=== PATIENT | female | born 2000 | race African-American/Black ===

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

== ENCOUNTER 2021-04-06 11:08 | Emergency (ER) | payer OTHER ==
--- OUTSIDE RECORDS SUMMARY | 2021-04-06 11:14 | XMS REPORT | Continuity of Care Document ---
:2000 Author Organization [facility] t Address [address] [place] [address] Care Team Providers Name Role Phone Nikko BAILEY Attending Clinician Unavailable Visit, Nurse Attending Clinician Unavailable Priscilla STEVENS C Attending Clinician Doctor Unassigned, Name Attending Clinician Unavailable Lynn VALENTIN, N Attending Clinician Curt Bryant DO Attending Clinician Eboni WELLS Attending Clinician Unavailable Saba VALENTIN, R Attending Clinician Carole WALTER Attending Clinician Unavailable Payers Payer Name Policy Type Policy Number Effective Date Expiration Date S tiara [facility] DUAL [id number] 2020 00:00:00 COMP HMO D SNP [facility] STAR [id number] 2018 00:00:00 Advance Directives Directive Decision Effective Termination Comments Source Date Date Healthcare Agents on N/A [facility] FileNameRelationshipHealthcare [facility] Agent Medical RelationshipCommunicationTercobre [facility] Branch [facility] [phone] (Home) Problems Condition Condition Condition Status Onset Resolution Last Treating Co mments Source Name Details Category Date Date Treatment Clinician Date UTI UTI Disease Active Overview: Mateo thomas (urinary (urinary 8-19 Treated ity o f tract tract 00:00: on [place] infection) infection) 00 11/06/2018 [facility] Branch Chlamydia Chlamydia Disease Active Uni vers trachomati trachomati 2-07 it y of s s 00:00: [place] infection infection 00 [facility] of lower of lower Branch genitourin genitourin sofia sites sofia sites BMI BMI Disease Active 2018- Univers 33.0-33.9, 33.0-33.9, 2-06 it y of adult adult 00:00: [address] No known No known Disease Unive rs active active ity of problems problems [facility] Allergies, Adverse Reactions, Alerts Allergy Allergy Status Severity Reaction(s) Onset Inactive Treating Comm ents Source Name Type Date Date Clinician No Known DA Active U [facility] [address] [place] 00:00: Health 00 are [facility] No Known DA Active U [facility]ie [address] [place] 00:00: Health 00 are [facility] No Known DA Active U [facility] Allergie 8-16 [facility] s 00:[facility]: [facility] 00 [facility] [place] [facility] NO KNOWN Drug Active Univers ALLERGIE Class ity of S [facility] Social History Social Habit Start Date Stop Date Quantity Comments Source Exposure to Not sure [facility] SARS-CoV-2 [facility] (event) Branch Tobacco use and 2020-08-20 2020-08-20 Never used Universit y of exposure 00:00:00 00:00:00 [facility] Alcohol intake 2020-08-20 2020-08-20 Current University of 00:00:00 00:00:00 non-drinker of [facility] alcohol Branch (finding) Sex Assigned At 2000 2000 Universit y of 00:00:00 00:00:00 [facility] Smoking Status Start Date Stop Date Source Never smoker [facility] Medications Ordered Filled Start Stop Current Ordering Indication Dosage Frequency Signature Comments Components Source Medication Medication Date Date Medication? Clinician (SIG) Name Name LOESTRIN FE Yes [id number] 1{tbl} Take 1 Univers (MICROGESTI 6-02 tablet by ity of Nikko FE 04/09) 00:00: mouth [place] 1 mg-20 mcg 00 daily. Medica l (21)/75 mg Branch (7) tablet LOESTRIN FE Yes [id number] 1{tbl} Take 1 Univers (MICROGESTI 3-02 tablet by ity of N FE 04/09) 00:00: mouth [place] 1 mg-20 mcg 00 daily. Medica l (21)/75 mg Branch (7) tablet LOESTRIN FE 0 Yes [id number] 1{tbl} Take 1 Univers (MICROGESTI 3-02 tablet by ity of N FE 04/09) 00:00: mouth [place] 1 mg-20 mcg 00 daily. Medica l (21)/75 mg Branch (7) tablet LOESTRIN FE 0 Yes [id number] 1{tbl} Take 1 Univers (MICROGESTI 3-02 tablet by ity of N FE 04/09) 00:00: mouth [place] 1 mg-20 mcg 00 daily. Medica l (21)/75 mg Branch (7) tablet LOESTRIN FE 0 Yes [id number] 1{tbl} Take 1 Univers (MICROGESTI 3-02 tablet by ity of N FE 04/09) 00:00: mouth [place] 1 mg-20 mcg 00 daily. Medica l (21)/75 mg Branch (7) tablet LOESTRIN FE Yes [id number] 1{tbl} Take 1 Univers (MICROGESTI 3-02 tablet by ity of N FE 04/09) 00:00: mouth [place] 1 mg-20 mcg 00 daily. Medica l (21)/75 mg Branch (7) tablet LOESTRIN FE 2020- No [id number] 1{tbl} Take 1 Univers (MICROGESTI 3-02 06-02 tablet by it y of N FE 04/09) 00:00: 00:00 mouth [place] 1 mg-20 mcg 00 :00 daily. Medica l (21)/75 mg Branch (7) tablet Nitrofurant 2019- No [id number] 100mg Take 1 Univers oin&Nit. 11-06 capsule by ity of [place] 00:00: 04:59 mouth 2 [place] as (MACROBID) 00 :00 (two) Medical 100 mg times Branch capsule daily for 10 days. Nitrofurant 2019- No [id number] 100mg Take 1 Univers oin&Nit. 11-06 capsule by ity of [place] 00:00: 04:59 mouth 2 [place] as (MACROBID) 00 :00 (two) Medical 100 mg times Branch capsule daily for 10 days. Nitrofurant 2018- No [id number] 100mg Take 1 Univers oin&Nit. 11-06 capsule by ity of [place] 00:00: 04:59 mouth 2 [place] as (MACROBID) 00 :00 (two) Medical 100 mg times Branch capsule daily for 10 days. Nitrofurant 2018- No [id number] 100mg Take 1 Univers oin&Nit. 11-06 capsule by ity of [place] 00:00: 04:59 mouth 2 [place] as (MACROBID) 00 :00 (two) Medical 100 mg times Branch capsule daily for 10 days. Nitrofurant 2018- No [id number] 100mg Take 1 Univers oin&Nit. 11-06 capsule by ity of [place] 00:00: 04:59 mouth 2 [place] as (MACROBID) 00 :00 (two) Medical 100 mg times Branch capsule daily for 10 days. No known No Univers medications ity [facility] No known No Univers medications ity [facility] No known No Univers medications ity [facility] No known No [facility] [place] Immunizations Ordered Immunization Filled Immunization Date Status Commen ts Source Name Name Influenza Virus 2017-12-18 Completed Universit y of Vaccine 00:00:00 [facility] Influenza Virus 2017-12-18 Completed Universit y of Vaccine 00:00:00 [facility] Influenza Virus 2017-12-18 Completed Universit y of Vaccine 00:00:00 [facility] Influenza Virus 2017-12-18 Completed Universit y of Vaccine 00:00:00 [facility] Influenza Virus 2017-12-18 Completed Universit y of Vaccine 00:00:00 [facility] Influenza Virus 2017-12-18 Completed Universit y of Vaccine 00:00:00 [facility] Influenza Virus 2017-12-18 Completed Universit y of Vaccine 00:00:00 [facility] Influenza Virus 2017-12-18 Completed Universit y of Vaccine 00:00:00 [facility] Influenza Virus 2017-12-18 Completed Universit y of Vaccine 00:00:00 [facility] Influenza Virus 2017-12-18 Completed Universit y of Vaccine 00:00:00 [facility] Influenza Virus 2017-12-18 Completed Universit y of Vaccine 00:00:00 [facility] Influenza Virus 2017-12-18 Completed Universit y of Vaccine 00:00:00 [facility] Influenza Virus 2017-12-18 Completed Universit y of Vaccine 00:00:00 [facility] Influenza Virus 2017-12-18 Completed Universit y of Vaccine 00:00:00 [facility] Influenza Virus 2017-12-18 Completed Universit y of Vaccine 00:00:00 [facility] Influenza Virus 2017-12-18 Completed Universit y of Vaccine 00:00:00 [facility] HPV 2011-12-27 Completed University of 00:00:00 [facility] Influenza Virus 2011-12-27 Completed Universit y of Vaccine (3+ yrs) 00:00:00 [facility] Meningococcal 2011-12-27 Completed University of Polysaccharide 00:00:00 [place] Medi elder (groups A, C, Y and Branc h W-135) conjugate vaccine (MCV4P) TDAP 2011-12-27 Completed University of 00:00:00 [facility] HPV 2011-12-27 Completed University of 00:00:00 [facility] Influenza Virus 2011-12-27 Completed Universit y of Vaccine (3+ yrs) 00:00:00 [facility] Meningococcal 2011-12-27 Completed University of Polysaccharide 00:00:00 [place] Medi elder (groups A, C, Y and Branc h W-135) conjugate vaccine (MCV4P) TDAP 2011-12-27 Completed University of 00:00:00 [facility] HPV 2011-12-27 Completed University of 00:00:00 [facility] Influenza Virus 2011-12-27 Completed Universit y of Vaccine (3+ yrs) 00:00:00 [facility] Meningococcal 2011-12-27 Completed University of Polysaccharide 00:00:00 [place] Medi elder (groups A, C, Y and Branc h W-135) conjugate vaccine (MCV4P) TDAP 2011-12-27 Completed University of 00:00:00 [facility] HPV 2011-12-27 Completed University of 00:00:00 [facility] Influenza Virus 2011-12-27 Completed Universit y of Vaccine (3+ yrs) 00:00:00 [facility] Meningococcal 2011-12-27 Completed University of Polysaccharide 00:00:00 [place] Medi elder (groups A, C, Y and Branc h W-135) conjugate vaccine (MCV4P) TDAP 2011-12-27 Completed University of 00:00:00 [facility] HPV 2011-12-27 Completed University of 00:00:00 [facility] Influenza Virus 2011-12-27 Completed Universit y of Vaccine (3+ yrs) 00:00:00 [facility] Meningococcal 2011-12-27 Completed University of Polysaccharide 00:00:00 [place] Medi elder (groups A, C, Y and Branc h W-135) conjugate vaccine (MCV4P) TDAP 2011-12-27 Completed University of 00:00:00 [facility] HPV 2011-12-27 Completed University of 00:00:00 [facility] Influenza Virus 2011-12-27 Completed Universit y of Vaccine (3+ yrs) 00:00:00 [facility] Meningococcal 2011-12-27 Completed University of Polysaccharide 00:00:00 [place] Medi elder (groups A, C, Y and Branc h W-135) conjugate vaccine (MCV4P) TDAP 2011-12-27 Completed University of 00:00:00 [facility] HPV 2011-12-27 Completed University of 00:00:00 [facility] Influenza Virus 2011-12-27 Completed Universit y of Vaccine (3+ yrs) 00:00:00 [facility] Meningococcal 2011-12-27 Completed University of Polysaccharide 00:00:00 [place] Medi elder (groups A, C, Y and Branc h W-135) conjugate vaccine (MCV4P) TDAP 2011-12-27 Completed University of 00:00:00 [facility] HPV 2011-12-27 Completed University of 00:00:00 [facility] Influenza Virus 2011-12-27 Completed Universit y of Vaccine (3+ yrs) 00:00:00 [facility] Meningococcal 2011-12-27 Completed University of Polysaccharide 00:00:00 [place] Medi elder (groups A, C, Y and Branc h W-135) conjugate vaccine (MCV4P) TDAP 2011-12-27 Completed University of 00:00:00 [facility] HPV 2011-12-27 Completed University of 00:00:00 [facility] Influenza Virus 2011-12-27 Completed Universit y of Vaccine (3+ yrs) 00:00:00 [place] Me dical Branch Meningococcal 2011-12-27 Completed University of Polysaccharide 00:00:00 [facility] elder (groups A, C, Y and Branc h W-135) conjugate vaccine (MCV4P) TDAP 2011-12-27 Completed University of 00:00:00 [facility] Varicella 2007-02-23 Completed University of (varivax)(chicken 00:00:00 [place] M edical pox) Branch Varicella 2007-02-23 Completed University of (varivax)(chicken 00:00:00 [place] M edical pox) Branch Varicella 2007-02-23 Completed University of (varivax)(chicken 00:00:00 [place] M edical pox) Branch Varicella 2007-02-23 Completed University of (varivax)(chicken 00:00:00 [place] M edical pox) Branch Varicella 2007-02-23 Completed University of (varivax)(chicken 00:00:00 [place] M edical pox) Branch Varicella 2007-02-23 Completed University of (varivax)(chicken 00:00:00 [place] M edical pox) Branch Varicella 2007-02-23 Completed University of (varivax)(chicken 00:00:00 [place] M edical pox) Branch Varicella 2007-02-23 Completed University of (varivax)(chicken 00:00:00 [place] M edical pox) Branch Varicella 2007-02-23 Completed University of (varivax)(chicken 00:00:00 [place] M edical pox) Branch Varicella 2007-02-23 Completed University of (varivax)(chicken 00:00:00 [place] M edical pox) Branch Varicella 2007-02-23 Completed University of (varivax)(chicken 00:00:00 [place] M edical pox) Branch Varicella 2007-02-23 Completed University of (varivax)(chicken 00:00:00 [place] M edical pox) Branch Varicella 2007-02-23 Completed University of (varivax)(chicken 00:00:00 [place] M edical pox) Branch Varicella 2007-02-23 Completed University of (varivax)(chicken 00:00:00 [place] M edical pox) Branch Varicella 2007-02-23 Completed University of (varivax)(chicken 00:00:00 [place] M edical pox) Branch Varicella 2007-02-23 Completed University of (varivax)(chicken 00:00:00 [place] M edical pox) Branch HEPATITIS A 2007-01-09 Completed University of 00:00:00 [facility] HEPATITIS A 2007-01-09 Completed University of 00:00:00 [facility] HEPATITIS A 2007-01-09 Completed University of 00:00:00 [facility] HEPATITIS A 2007-01-09 Completed University of 00:00:00 [facility] HEPATITIS A 2007-01-09 Completed University of 00:00:00 [facility] HEPATITIS A 2007-01-09 Completed University of 00:00:00 [facility] Varicella 2007-01-09 Completed University of (varivax)(chicken 00:00:00 [place] M edical pox) Branch HEPATITIS A 2007-01-09 Completed University of 00:00:00 [facility] Varicella 2007-01-09 Completed University of (varivax)(chicken 00:00:00 [place] M edical pox) Branch HEPATITIS A 2007-01-09 Completed University of 00:00:00 [facility] Varicella 2007-01-09 Completed University of (varivax)(chicken 00:00:00 [place] M edical pox) Branch HEPATITIS A 2007-01-09 Completed University of 00:00:00 [facility] Varicella 2007-01-09 Completed University of (varivax)(chicken 00:00:00 [place] M edical pox) Branch HEPATITIS A 2007-01-09 Completed University of 00:00:00 [facility] Varicella 2007-01-09 Completed University of (varivax)(chicken 00:00:00 [place] M edical pox) Branch HEPATITIS A 2007-01-09 Completed University of 00:00:00 [facility] Varicella 2007-01-09 Completed University of (varivax)(chicken 00:00:00 [place] M edical pox) Branch HEPATITIS A 2007-01-09 Completed University of 00:00:00 [facility] Varicella 2007-01-09 Completed University of (varivax)(chicken 00:00:00 [place] M edical pox) Branch HEPATITIS A 2007-01-09 Completed University of 00:00:00 [facility] Varicella 2007-01-09 Completed University of (varivax)(chicken 00:00:00 [place] M edical pox) Branch HEPATITIS A 2007-01-09 Completed University of 00:00:00 [facility] Branch Varicella 2007-01-09 Completed University of (varivax)(chicken 00:00:00 [place] M edical pox) Branch HEPATITIS A 2007-01-09 Completed University of 00:00:00 [facility] Branch HEPATITIS A 2007-01-09 Completed University of 00:00:00 [facility] Branch HEPATITIS A 2006-03-23 Completed University of 00:00:00 [facility] Branch HEPATITIS A 2006-03-23 Completed University of 00:00:00 [facility] Branch HEPATITIS A 2006-03-23 Completed University of 00:00:00 [facility] Branch HEPATITIS A 2006-03-23 Completed University of 00:00:00 [facility] Branch HEPATITIS A 2006-03-23 Completed University of 00:00:00 [facility] HEPATITIS A 2006-03-23 Completed University of 00:00:00 [facility] HEPATITIS A 2006-03-23 Completed University of 00:00:00 [facility] HEPATITIS A 2006-03-23 Completed University of 00:00:00 [facility] HEPATITIS A 2006-03-23 Completed University of 00:00:00 [facility] Branch DTAP 2005-03-23 Completed University of 00:00:00 [facility] IPV 2005-03-23 Completed University of 00:00:00 [facility] Branch MMR 2005-03-23 Completed University of 00:00:00 [facility] HEPATITIS A 2005-03-23 Completed University of 00:00:00 [facility] Branch DTAP 2005-03-23 Completed University of 00:00:00 [facility] IPV 2005-03-23 Completed University of 00:00:00 [facility] Branch MMR 2005-03-23 Completed University of 00:00:00 [facility] HEPATITIS A 2005-03-23 Completed University of 00:00:00 [facility] Branch DTAP 2005-03-23 Completed University of 00:00:00 [facility] Branch IPV 2005-03-23 Completed University of 00:00:00 [facility] Branch MMR 2005-03-23 Completed University of 00:00:00 [facility] HEPATITIS A 2005-03-23 Completed University of 00:00:00 [facility] Branch DTAP 2005-03-23 Completed University of 00:00:00 [facility] Branch IPV 2005-03-23 Completed University of 00:00:00 [facility] Branch MMR 2005-03-23 Completed University of 00:00:00 [place] [facility] HEPATITIS A 2005-03-23 Completed University of 00:00:00 [place] [facility] DTAP 2005-03-23 Completed University of 00:00:00 [place] [facility] IPV 2005-03-23 Completed University of 00:00:00 [place] [facility] MMR 2005-03-23 Completed University of 00:00:00 [place] [facility] HEPATITIS A 2005-03-23 Completed University of 00:00:00 [place] [facility] DTAP 2005-03-23 Completed University of 00:00:00 [place] [facility] IPV 2005-03-23 Completed University of 00:00:00 [place] [facility] MMR 2005-03-23 Completed University of 00:00:00 [place] [facility] HEPATITIS A 2005-03-23 Completed University of 00:00:00 [place] [facility] DTAP 2005-03-23 Completed University of 00:00:00 [place] [facility] IPV 2005-03-23 Completed University of 00:00:00 [place] [facility] MMR 2005-03-23 Completed University of 00:00:00 [place] [facility] HEPATITIS A 2005-03-23 Completed University of 00:00:00 [place] [facility] DTAP 2005-03-23 Completed University of 00:00:00 [place] [facility] IPV 2005-03-23 Completed University of 00:00:00 [place] [facility] MMR 2005-03-23 Completed University of 00:00:00 [facility] Branch HEPATITIS A 2005-03-23 Completed University of 00:00:00 [place] [facility] DTAP 2005-03-23 Completed University of 00:00:00 [place] [facility] IPV 2005-03-23 Completed University of 00:00:00 [place] [facility] MMR 2005-03-23 Completed University of 00:00:00 [facility] Branch HEPATITIS A 2005-03-23 Completed University of 00:00:00 [place] [facility] DTAP 2002-03-28 Completed University of 00:00:00 [place] [facility] IPV 2002-03-28 Completed University of 00:00:00 [facility] Branch MMR 2002-03-28 Completed University of 00:00:00 [facility] Branch Varicella 2002-03-28 Completed University of (varivax)(chicken 00:00:00 [place] M edical pox) Branch Heamophilus Influenza 2002-03-28 Completed Uni versity of B 00:00:00 [facility] Branch DTAP 2002-03-28 Completed University of 00:00:00 [place] [facility] IPV 2002-03-28 Completed University of 00:00:00 [facility] MMR 2002-03-28 Completed University of 00:00:00 [facility] Branch Varicella 2002-03-28 Completed University of (varivax)(chicken 00:00:00 [place] M edical pox) Branch Heamophilus Influenza 2002-03-28 Completed Uni versity of B 00:00:00 [facility] DTAP 2002-03-28 Completed University of 00:00:00 [facility] IPV 2002-03-28 Completed University of 00:00:00 [facility] MMR 2002-03-28 Completed University of 00:00:00 [facility] Varicella 2002-03-28 Completed University of (varivax)(chicken 00:00:00 [place] M edical pox) Branch Heamophilus Influenza 2002-03-28 Completed Uni versity of B 00:00:00 [facility] DTAP 2002-03-28 Completed University of 00:00:00 [facility] IPV 2002-03-28 Completed University of 00:00:00 [facility] MMR 2002-03-28 Completed University of 00:00:00 [facility] Varicella 2002-03-28 Completed University of (varivax)(chicken 00:00:00 [place] M edical pox) Branch Heamophilus Influenza 2002-03-28 Completed Uni versity of B 00:00:00 [facility] DTAP 2002-03-28 Completed University of 00:00:00 [facility] IPV 2002-03-28 Completed University of 00:00:00 [facility] MMR 2002-03-28 Completed University of 00:00:00 [facility] Varicella 2002-03-28 Completed University of (varivax)(chicken 00:00:00 [place] M edical pox) Branch Heamophilus Influenza 2002-03-28 Completed Uni versity of B 00:00:00 [facility] DTAP 2002-03-28 Completed University of 00:00:00 [facility] IPV 2002-03-28 Completed University of 00:00:00 [facility] MMR 2002-03-28 Completed University of 00:00:00 [facility] Varicella 2002-03-28 Completed University of (varivax)(chicken 00:00:00 [place] M edical pox) Branch Heamophilus Influenza 2002-03-28 Completed Uni versity of B 00:00:00 [facility] DTAP 2002-03-28 Completed University of 00:00:00 [facility] IPV 2002-03-28 Completed University of 00:00:00 [place] [facility] MMR 2002-03-28 Completed University of 00:00:00 [facility] Branch Varicella 2002-03-28 Completed University of (varivax)(chicken 00:00:00 [place] M edical pox) Branch Heamophilus Influenza 2002-03-28 Completed Uni versity of B 00:00:00 [facility] Branch DTAP 2002-03-28 Completed University of 00:00:00 [facility] Branch IPV 2002-03-28 Completed University of 00:00:00 [place] [facility] MMR 2002-03-28 Completed University of 00:00:00 [facility] Branch Varicella 2002-03-28 Completed University of (varivax)(chicken 00:00:00 [place] M edical pox) Branch Heamophilus Influenza 2002-03-28 Completed Uni versity of B 00:00:00 [facility] Branch DTAP 2002-03-28 Completed University of 00:00:00 [facility] Branch IPV 2002-03-28 Completed University of 00:00:00 [facility] Branch MMR 2002-03-28 Completed University of 00:00:00 [facility] Branch Varicella 2002-03-28 Completed University of (varivax)(chicken 00:00:00 [place] [facility] pox) [facility] Heamophilus Influenza 2002-03-28 Completed Uni versity of B 00:00:00 [facility] Hep B, Adol or Pedi 2002-01-19 Completed Unive rsity of Dosage 00:00:00 [facility] Hep B, Adol or Pedi 2002-01-19 Completed Unive rsity of Dosage 00:00:00 [facility] Hep B, Adol or Pedi 2002-01-19 Completed Unive rsity of Dosage 00:00:00 [facility] Hep B, Adol or Pedi 2002-01-19 Completed Unive rsity of Dosage 00:00:00 [facility] Hep B, Adol or Pedi 2002-01-19 Completed Unive rsity of Dosage 00:00:00 [facility] Hep B, Adol or Pedi 2002-01-19 Completed Unive rsity of Dosage 00:00:00 [facility] Hep B, Adol or Pedi 2002-01-19 Completed Unive rsity of Dosage 00:00:00 [facility] Hep B, Adol or Pedi 2002-01-19 Completed Unive rsity of Dosage 00:00:00 [facility] Hep B, Adol or Pedi 2002-01-19 Completed Unive rsity of Dosage 00:00:00 [facility] DTAP 2001-01-19 Completed University of 00:00:00 [facility] Hep B, Adol or Pedi 2001-01-19 Completed Unive rsity of Dosage 00:00:00 [facility] Heamophilus Influenza 2001-01-19 Completed Uni versity of B 00:00:00 [facility] DTAP 2001-01-19 Completed University of 00:00:00 [facility] Hep B, Adol or Pedi 2001-01-19 Completed Unive rsity of Dosage 00:00:00 [facility] Heamophilus Influenza 2001-01-19 Completed Uni versity of B 00:00:00 [facility] DTAP 2001-01-19 Completed University of 00:00:00 [facility] Hep B, Adol or Pedi 2001-01-19 Completed Unive rsity of Dosage 00:00:00 [facility] Heamophilus Influenza 2001-01-19 Completed Uni versity of B 00:00:00 [facility] DTAP 2001-01-19 Completed University of 00:00:00 [facility] Hep B, Adol or Pedi 2001-01-19 Completed Unive rsity of Dosage 00:00:00 [facility] Heamophilus Influenza 2001-01-19 Completed Uni versity of B 00:00:00 [facility] DTAP 2001-01-19 Completed University of 00:00:00 [facility] Hep B, Adol or Pedi 2001-01-19 Completed Unive rsity of Dosage 00:00:00 [facility] Heamophilus Influenza 2001-01-19 Completed Uni versity of B 00:00:00 [facility] DTAP 2001-01-19 Completed University of 00:00:00 [facility] Hep B, Adol or Pedi 2001-01-19 Completed Unive rsity of Dosage 00:00:00 [facility] Heamophilus Influenza 2001-01-19 Completed Uni versity of B 00:00:00 [facility] DTAP 2001-01-19 Completed University of 00:00:00 [facility] Hep B, Adol or Pedi 2001-01-19 Completed Unive rsity of Dosage 00:00:00 [facility] Heamophilus Influenza 2001-01-19 Completed Uni versity of B 00:00:00 [facility] DTAP 2001-01-19 Completed University of 00:00:00 [facility] Hep B, Adol or Pedi 2001-01-19 Completed Unive rsity of Dosage 00:00:00 [facility] Heamophilus Influenza 2001-01-19 Completed Uni versity of B 00:00:00 [facility] DTAP 2001-01-19 Completed University of 00:00:00 [facility] Hep B, Adol or Pedi 2001-01-19 Completed Unive rsity of Dosage 00:00:00 [facility] Heamophilus Influenza 2001-01-19 Completed Uni versity of B 00:00:00 [facility] DTAP 2000 Completed University of 00:00:00 [facility] IPV 2000 Completed University of 00:00:00 [facility] Pneumococcal 7 2000 Completed University of Conjugate, PCV7 00:00:00 [place] [facility] (Prevnar7) [place] Heamophilus Influenza 2000 Completed Uni versity of B 00:00:00 [facility] DTAP 2000 Completed University of 00:00:00 [facility] IPV 2000 Completed University of 00:00:00 [facility] Pneumococcal 7 2000 Completed University of Conjugate, PCV7 00:00:00 [place] [facility] B 00:00:00 [facility] DTAP 2000 Completed University of 00:00:00 [facility] IPV 2000 Completed University of 00:00:00 [facility] Pneumococcal 7 2000 Completed University of Conjugate, PCV7 00:00:00 [place] [facility] (Prevnar7) Branch Heamophilus Influenza 2000 Completed Uni versity of B 00:00:00 [facility] DTAP 2000 Completed University of 00:00:00 [facility] IPV 2000 Completed University of 00:00:00 [facility] Pneumococcal 7 2000 Completed University of Conjugate, PCV7 00:00:00 [place] [facility] (Prevnar7) Branch Heamophilus Influenza 2000 Completed Uni versity of B 00:00:00 [facility] DTAP 2000 Completed University of 00:00:00 [facility] IPV 2000 Completed University of 00:00:00 [facility] Pneumococcal 7 2000 Completed University of Conjugate, PCV7 00:00:00 [place] [facility] (Prevnar7) [facility] Heamophilus Influenza 2000 Completed Uni versity of B 00:00:00 [facility] DTAP 2000 Completed University of 00:00:00 [facility] IPV 2000 Completed University of 00:00:00 [facility] Pneumococcal 7 2000 Completed University of Conjugate, PCV7 00:00:00 [place] [facility] (Prevnar7) [facility] Heamophilus Influenza 2000 Completed Uni versity of B 00:00:00 [facility] DTAP 2000 Completed University of 00:00:00 [facility] IPV 2000 Completed University of 00:00:00 [facility] Pneumococcal 7 2000 Completed University of Conjugate, PCV7 00:00:00 [place] [facility] (Prevnar7) Branch Heamophilus Influenza 2000 Completed Uni versity of B 00:00:00 [facility] DTAP 2000 Completed University of 00:00:00 [facility] IPV 2000 Completed University of 00:00:00 [facility] Pneumococcal 7 2000 Completed University of Conjugate, PCV7 00:00:00 [place] [facility] (Prevnar7) Branch Heamophilus Influenza 2000 Completed Uni versity of B 00:00:00 [facility] DTAP 2000 Completed University of 00:00:00 [facility] IPV 2000 Completed University of 00:00:00 [facility] Pneumococcal 7 2000 Completed University of Conjugate, PCV7 00:00:00 [place] [facility] (Prevnar7) Branch Heamophilus Influenza 2000 Completed Uni versity of B 00:00:00 [facility] DTAP 2000 Completed University of 00:00:00 [facility] Hep B, Adol or Pedi 2000 Completed Unive rsity of Dosage 00:00:00 [facility] IPV 2000 Completed University of 00:00:00 [facility] Heamophilus Influenza 2000 Completed Uni versity of B 00:00:00 [facility] DTAP 2000 Completed University of 00:00:00 [facility] Hep B, Adol or Pedi 2000 Completed Unive rsity of Dosage 00:00:00 [facility] IPV 2000 Completed University of 00:00:00 [facility] Heamophilus Influenza 2000 Completed Uni versity of B 00:00:00 [facility] DTAP 2000 Completed University of 00:00:00 [facility] Hep B, Adol or Pedi 2000 Completed Unive rsity of Dosage 00:00:00 [facility] IPV 2000 Completed University of 00:00:00 [facility] Heamophilus Influenza 2000 Completed Uni versity of B 00:00:00 [facility] DTAP 2000 Completed University of 00:00:00 [facility] Hep B, Adol or Pedi 2000 Completed Unive rsity of Dosage 00:00:00 [facility] IPV 2000 Completed University of 00:00:00 [facility] Heamophilus Influenza 2000 Completed Uni versity of B 00:00:00 [facility] DTAP 2000 Completed University of 00:00:00 [facility] Hep B, Adol or Pedi 2000 Completed Unive rsity of Dosage 00:00:00 [facility] IPV 2000 Completed University of 00:00:00 [facility] Heamophilus Influenza 2000 Completed Uni versity of B 00:00:00 [facility] DTAP 2000 Completed University of 00:00:00 [facility] Hep B, Adol or Pedi 2000 Completed Unive rsity of Dosage 00:00:00 [facility] IPV 2000 Completed University of 00:00:00 [facility] Heamophilus Influenza 2000 Completed Uni versity of B 00:00:00 [facility] DTAP 2000 Completed University of 00:00:00 [facility] Hep B, Adol or Pedi 2000 Completed Unive rsity of Dosage 00:00:00 [facility] IPV 2000 Completed University of 00:00:00 [facility] Heamophilus Influenza 2000 Completed Uni versity of B 00:00:00 [facility] DTAP 2000 Completed University of 00:00:00 [facility] Hep B, Adol or Pedi 2000 Completed Unive rsity of Dosage 00:00:00 [facility] IPV 2000 Completed University of 00:00:00 [facility] Heamophilus Influenza 2000 Completed Uni versity of B 00:00:00 [facility] DTAP 2000 Completed University of 00:00:00 [facility] Hep B, Adol or Pedi 2000 Completed Unive rsity of Dosage 00:00:00 [facility] IPV 2000 Completed University of 00:00:00 [facility] Heamophilus Influenza 2000 Completed Uni versity of B 00:00:00 [facility] Hep B, Adol or Pedi 2000 Completed Unive rsity of Dosage 00:00:00 [facility] Hep B, Adol or Pedi 2000 Completed Unive rsity of Dosage 00:00:00 [facility] Hep B, Adol or Pedi 2000 Completed Unive rsity of Dosage 00:00:00 [facility] Hep B, Adol or Pedi 2000 Completed Unive rsity of Dosage 00:00:00 [facility] Hep B, Adol or Pedi 2000 Completed Unive rsity of Dosage 00:00:00 [facility] Hep B, Adol or Pedi 2000 Completed Unive rsity of Dosage 00:00:00 [facility] Hep B, Adol or Pedi 2000 Completed Unive rsity of Dosage 00:00:00 [facility] Hep B, Adol or Pedi 2000 Completed Unive rsity of Dosage 00:00:00 [facility] Hep B, Adol or Pedi 2000 Completed Unive rsity of Dosage 00:00:00 [facility] Vital Signs Vital Name Observation Time Observation Value Comments Source Systolic blood 2020-08-20 14:56:00 125 mm[Hg] Univer sity of pressure [facility] Diastolic blood 2020-08-20 14:56:00 76 mm[Hg] Unive rsity of pressure [facility] Heart rate 2020-08-20 14:56:00 78 /min Universi ty of [facility] Body temperature 2020-08-20 14:56:00 36.72 Yuki Univ ersity of [facility] Body weight 2020-08-20 14:56:00 124.376 kg Universi ty of [facility] Systolic blood 2020-05-20 16:05:00 129 mm[Hg] Univer sity of pressure [facility] Diastolic blood 2020-05-20 16:05:00 77 mm[Hg] Unive rsity of pressure [facility] Heart rate 2020-05-20 16:05:00 84 /min Universi ty of [facility] Body temperature 2020-05-20 16:05:00 36.72 Yuki Univ ers[facility] of [facility] Respiratory rate 2020-05-20 16:05:00 16 /min Univ ersity of [facility] Body height 2020-05-20 16:05:00 172.7 cm [facility]i [facility] Body weight 2020-05-20 16:05:00 107.559 kg [facility] BMI 2020-05-20 16:05:00 36.05 kg/m2 [facility] Systolic blood 2020-05-12 15:37:00 132 mm[Hg] Univer sity of pressure [facility] Diastolic blood 2020-05-12 15:37:00 88 mm[Hg] Unive rsity of pressure [facility] Heart rate 2020-05-12 15:37:00 84 /min Universi ty of [facility] Body temperature 2020-05-12 15:37:00 36.67 Yuki Univ ers[facility] of [facility] Respiratory rate 2020-05-12 15:37:00 16 /min Univ ersity of [facility] Body height 2020-05-12 15:37:00 172.7 cm [facility]i ty of [facility] Body weight 2020-05-12 15:37:00 105.235 kg [facility] BMI 2020-05-12 15:37:00 35.28 kg/m2 [facility] [place] [facility] Systolic blood 2018-11-08 14:03:00 112 mm[Hg] Univer sity of pressure [facility] Diastolic blood 2018-11-08 14:03:00 72 mm[Hg] Unive rsity of pressure [facility] Heart rate 2018-11-08 14:03:00 87 /min [facility] Body temperature 2018-11-08 14:03:00 36.72 Yuki Univ [facility] Respiratory rate 2018-11-08 14:03:00 16 /min Univ ers[facility] of [facility] Body height 2018-11-08 14:03:00 172.7 cm [facility] Body weight 2018-11-08 14:03:00 103.108 kg [facility] BMI 2018-11-08 14:03:00 34.56 kg/m2 [facility] Systolic blood 2018-11-08 14:03:00 112 mm[Hg] Univer sity of pressure [facility] Diastolic blood 2018-11-08 14:03:00 72 mm[Hg] Unive rsity of pressure [facility] Heart rate 2018-11-08 14:03:00 87 /min [facility] Body temperature 2018-11-08 14:03:00 36.72 Yuki Univ [facility] Respiratory rate 2018-11-08 14:03:00 16 /min Univ ers[facility] Body height 2018-11-08 14:03:00 172.7 cm [facility] Body weight 2018-11-08 14:03:00 103.108 kg [facility] BMI 2018-11-08 14:03:00 34.56 kg/m2 [facility] Heart rate 2018-11-02 14:09:00 73 /min [facility] Body temperature 2018-11-02 14:09:00 36.72 Yuki Univ [facility] Respiratory rate 2018-11-02 14:09:00 16 /min Univ ersity of [facility] Body height 2018-11-02 14:09:00 172.7 cm [facility] Body weight 2018-11-02 14:09:00 102.513 kg [facility] BMI 2018-11-02 14:09:00 34.36 kg/m2 [facility] ty [facility] Systolic blood 2018-11-02 14:09:00 135 mm[facility]Hg[facility] 2018-11-02 14:09:00 83 mm[Hg] Castillo [facility] Procedures Procedure Date / Time Performing Clinician Source Performed NOTICE OF BILLING 2020-08-20 14:28:35 Doctor Jazzy [facility] PRACTICES FOR MEDICARE [facility] POCT TEST 2020-05-20 16:17:00 Milagros Bailey [facility] POCT TEST 2020-05-12 15:49:00 [facility] CONSENT/REFUSAL FOR 2020-05-12 14:40:28 Doctor Castillo [facility] DIAGNOSIS AND TREATMENT [place] [facility] POCT TEST 2018-11-08 14:05:00 Yi Wells [facility] POCT TEST 2018-11-02 14:30:00 Veronica Walter [facility] POCT URINALYSIS W/O 2018-11-02 14:29:00 Veronica Walter [facility] SPECIFIC GRAVITY [facility] POCT URINALYSIS 2018-11-02 14:12:00 Veronica [facility] NO SHOW OR MISSED 2018-11-02 13:56:35 Doctor Jazzy [facility] APPOINTMENT POLICY [facility] h ACKNOWLEDGEMENT Encounters Start End Encounter Admission Attending Care Care Encounter Source Date/Time Date/Time Type Type Clinicians Facility Department ID 2020-04-13 Inpatient HCANW LUIZ [id number] [facility] 02:17:00 [id number] [facility] 2021-05-21 2021-05-21 Outpatient Carole BAILEY [facility] [id number] Univers 15:15:00 15:15:00 MILAGROS [id number] [facility] 2021-05-21 2021-05-21 Outpatient Carole BAILEY [facility] [id number] Univers 15:15:00 15:15:00 MILAGROS ity of [facility] 2020-08-20 2020-08-20 Nurse Visit, Ilia-Rmchp Nurse [facility] 1.2 .840.114 [id number] Univers 09:25:21 09:56:10 Visit Yi Wells HYBRID TECHNOLOGIST [id number]. 10 ity of [facility] [id number] Ulises as MATERNAL [id number] [facility] & CHILD [address] [place] [address] 2020-08-20 2020-08-20 Outpatient R [facility] [id number] Univers 09:30:00 09:30:00 [id number] ity [facility] 2020-08-20 2020-08-20 Outpatient R [facility] [id number] Univers 09:30:00 09:30:00 ity [facility] 2020-08-20 2020-08-20 Orders Doctor KARISHMA [id number] [id number] Univers 00:00:00 00:00:00 Only Unassigned, ALEJANDRO [id number] ity of [place] [facility] [id number] Ulises as [id number] [address] 2020-06-17 2020-06-17 Telephone Lynn [facility] [id number] Univers 00:00:00 00:00:00 Milagros El HYBRID TECHNOLOGIST [id number] it y of REGIONAL [id number] [place] as MATERNAL [id number] [facility] & CHILD [address] [place] [address] 2020-06-10 2020-06-10 Patient Manny [facility] [id number] Univers 00:00:00 00:00:00 Outreach Jimmy PRIMARY [id number] i ty of [facility] 4.2.7.2.686 [place] VIERA [id number] Nm dical [address] [place] [address] 2020-05-20 2020-05-20 Outpatient R PRISCILLA [facility] [id number] Univers 15:15:00 15:15:00 YI [id number] ity o f [facility] 2020-05-20 2020-05-20 Outpatient R PRISCILLA [facility] [id number] Univers 15:15:00 15:15:00 YI fernando [facility] 2020-05-20 2020-05-20 [facility] [id number] Univers 09:44:02 10:44:43 Visit Milagros El HYBRID TECHNOLOGIST [id number] it y of REGIONAL 4.2.7.2.686 [place] as MATERNAL [id number] [facility] ical & CHILD [address] [place] [address] 2020-05-20 2020-05-20 [facility] [id number] Univers 09:45:00 09:45:00 MILAGROS henry [facility] 2020-05-12 2020-05-12 [facility] 1.2 .840.114 [id number] Univers 09:15:42 09:40:19 Visit Yi Wells HYBRID TECHNOLOGIST 350.1.13. 10 ity of REGIONAL 4.2.7.2.686 [place] as MATERNAL [id number] [facility] & CHILD [address] [place] [address] 2020-05-12 2020-05-12 Fe Walter MADEEPTHI 1.2.840.114 [id number] Univers 09:00:00 09:30:00 Veronica Lam HYBRID TECHNOLOGIST 350.1.13.10 ity of Visit REGIONAL 4.2.7.2.686 [place] as MATERNAL [id number] [facility] & CHILD [address] [place] [address] 2020-05-12 2020-05-12 Outpatient Carole WALTER [facility] [id number] Univers 09:00:00 09:00:00 ROSYOCASTANDA [id number] ity o f [facility] 2020-05-12 2020-05-12 Outpatient Carole WALTER [facility] [id number] Univers 09:00:00 09:00:00 ROSHUNDA ity o f [facility] 2020-05-12 2020-05-12 Orders Doctor SCHWARZ 1.2.840.114 [id number] Univers 00:00:00 00:00:00 Only Unassigned, ALEJANDRO 350.1.13.10 ity of [place] [facility] 4.2.7.2.686 [place] as [id number] [address] 2020-05-07 2020-05-07 Outpatient R [facility] [id number] Univers 13:30:00 13:30:00 [id number] ity [facility] 2020-05-07 2020-05-07 Outpatient R [facility] [id number] Univers 13:30:00 13:30:00 ity of [facility] 2020-05-05 2020-05-05 Outpatient R SABA, [facility] [id number] Univers 14:00:00 14:00:00 VERONICA ity o f [facility] 2020-05-05 2020-05-05 Outpatient R [facility] [id number] Univers 13:30:00 13:30:00 [id number] ity [facility] 2019-04-06 2019-04-06 Emergency E [facility] [id number] [facility] 00:22:00 00:22:00 2018-11-16 2018-11-16 Telephone [facility] 1.2.840.114 [id number] Univers 00:00:00 00:00:00 Yi C HYBRID TECHNOLOGIST 350.1.13.10 ity of [place] [id number] Ulises as MATERNAL [id number] Med ical & CHILD [address] [place] [address] 2018-11-16 2018-11-16 Telephone [facility] 1.2.840.114 [id number] 00:00:00 00:00:00 Yi C HYBRID TECHNOLOGIST 350.1.13.10 REGIONAL 4.2.7.2.686 MATERNAL [id number] & CHILD [address] [place] [address] 2018-11-08 2018-11-08 [facility] [id number] Univers 08:41:58 09:34:25 Visit Yi C HYBRID TECHNOLOGIST 350.1.13.10 ity of [facility] 4.2.7.2.686 [place] as MATERNAL [id number] Med ical & CHILD [address] [place] [address] 2018-11-08 2018-11-08 Office Priscilla [facility] [id number] 08:41:58 09:34:25 Visit Yi Lyn HYBRID TECHNOLOGIST 350.1.13.10 [facility] 4.2.7.2.686 MATERNAL [id number] & CHILD [address] [facility] 2018-11-06 2018-11-06 Telephone Saba [facility] [id number] Univers 00:00:00 00:00:00 Veronica Lam HYBRID TECHNOLOGIST [id number] ity of [facility] 4.2.7.2.686 Ulises as MATERNAL [id number] Med ical & CHILD [address] [place] [address] 2018-11-02 2018-11-02 [facility] 1.2 .840.114 [id number] [facility] 08:58:48 09:18:43 Visit Veronica Walter HYBRID TECHNOLOGIST [id number] ity of [facility] 4.2.7.2.686 [place] as MATERNAL [id number] Med ical & CHILD [address] [place] [address] 2018-11-02 2018-11-02 Orders Doctor KARISHMA 1.2.840.[id number] [place] [address] 00:00:00 00:00:00 Only Unassigned, ALEJANDRO 350.1.13.10 ity of [place] [facility] 4.2.7.2.686 [place] as [id number] [address] 2018-10-07 2018-10-07 Emergency E [facility] [place] [id number] BL 12:29:00 12:29:00 2018-09-09 2018-09-09 Emergency E MHBL MHBL 7503 MHBL 19:24:00 19:24:00 Results Test Description Test Time Test Comments Results Result Comments Source POCT TEST 2020-05-20 16:17:00 Test Item Value Reference Range Interpretation Comme nts POCT PREG (test code = 1605) Negative On board controls acceptable with C Line (test code = 3574) Yes POCT PREG LOT # (test code = 3575) POCT [facility]REG TEST [facility]test code [facility] 3576[id number] 16:17:00 Test Item Value Reference Range Interpretation Comments POCT PREG (test code = 1605) Negative On board controls acceptable with C Yes Line (test code = 3574) POCT PREG LOT # (test code = 3575) POCT PREG TEST DATE (test code = 3576) [facility] [id number] 15:49:00 Test Item Value Reference Range Interpretation Comments POCT PREG (test code = 1605) Negative On board controls acceptable with C Yes Line (test code = 3574) POCT PREG LOT # (test code = 3575) POCT PREG TEST DATE (test code = 3576) [facility]- XR CHEST 1 [id number] 03:20:00 [facility] : 2000 Sex: FPatient Name: ROSALES TUCKER Unit No: [id number] EXAMS: CPT: [id number] XR CHEST 1 V 12543 CHEST 1 VIEW CLINICAL HISTORY: Palpitations COMPARISON: None. A single frontal view of the chest is submitted. FINDINGS: The cardiac silhouette is normal in size. Vascularity appears normal. The lungs are clear. No pleural effusion or pneumothorax is seen. No osseous abnormalities are seen. IMPRESSION: Negative chest radiograph. 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 [address] : 2000 Age: 20 Sex: F [place]ish [place] [id number] Loc: N.ERS Exam Date: 04/13/2020 Status: REG ER PH: FAX: PAGE 1 Signed ReportCOMPREHENSIVE METABOLIC [id number] 03:19:00 Test Item Value Reference Range Interpretation Comments SODIUM (test code = 136 mmol/L 135-145 N NA) POTASSIUM (test 3.8 mmol/L 3.6-5.0 N code = K) CHLORIDE (test code 103 mmol/L 101-111 N = CL) CARBON DIOXIDE 27 mmol/L 21-31 N (test code = CO2) GLUCOSE (test code 117 mg/dl 70-100 H = GLU) BLOOD UREA NITROGEN 14 mg/dl 6-20 N (test code = BUN) GLOMERULAR >=60 max >60 The estimated FILTRATION RATE estimate glomerular (test code = GFR) filtration rate is computed usingpatient ra ce, age (>18), sex, and serum creatinin e. If anyof the ne eded data elements a re missing the Laboratory lashell ot compute an estimation of t he glomerular filtration rate . CREATININE (test 0.74 mg/dL 0.44-1.03 N code = CREAT) TOTAL PROTEIN (test 7.5 g/dL 6.7-8.2 N code = PROT) ALBUMIN (test code 4.2 g/dL 3.2-5.5 N = ALB) CALCIUM (test code 9.1 mg/dL 8.5-10.5 N = CA) BILIRUBIN TOTAL 1.10 mg/dL 0.2-1.3 N (test code = BILT) SGOT/AST (test code 16 U/L 10-42 N = AST) SGPT/ALT (test code 10 U/L 10-60 N = ALT) ALKALINE 61 U/L 42-121 N PHOSPHATASE (test code = ALKP) [id number] 03:19:00 Test Item Value Reference Range Interpretation Comments TROPONIN-I (test code = TROPI) <0.020 ng/mL 0.000-0.034 N CBC W/AUTO [id number] 02:59:00 Test Item Value Reference Range Interpretation Comments WHITE BLOOD CELL (test code = 8.1 x10 3/uL 3.2-11.5 N WBC) RED BLOOD CELL (test code = 3.98 x10(6)/m 3.70-5.10 N RBC) HEMOGLOBIN (test code = HGB) 11.0 g/dL 12.0-15.0 L HEMATOCRIT (test code = HCT) 35.7 % 35.7-44.8 N MEAN CELL VOLUME (test code = 90 fL 80-100 N MCV) MEAN CELL HGB (test code = MCH) 27.6 pg 26.2-33.8 N MEAN CELL HGB CONCENTRATION 30.8 g/dL 30.0-34.0 N (test code = MCHC) RED CELL DISTRIBUTION WIDTH 13.5 % 11.3-14.5 N (test code = RDW) PLATELET COUNT (test code = 369 x10 3/uL 130-408 N PLT) MEAN PLATELET VOLUME (test code 10.0 fL 8.6-12.6 N = MPV) NEUTROPHIL % (test code = NT%) 52.7 % 40.0-70.0 N IMMATURE GRANULOCYTE % (test 0.2 % 0.0-2.0 N code = IG%) LYMPHOCYTE % (test code = LY%) 39.8 % 20-40 N MONOCYTE % (test code = MO%) 6.5 % 1-10 N EOSINOPHIL % (test code = EO%) 0.6 % 0.0-5.0 N BASOPHIL % (test code = BA%) 0.2 % 0.0-1.0 N NUCLEATED RBC % (test code = 0.0 % 0.0-0.9 N NRBC%) NEUTROPHIL # (test code = NT#) 4.3 x10 3/uL 1.6-7.2 N LYMPHOCYTE # (test code = LY#) 3.24 x10 3/uL 1.1-2.7 H MONOCYTE # (test code = MO#) 0.5 x10 3/uL 0.3-0.8 N EOSINOPHIL # (test code = EO#) 0.1 x10 3/uL 0.0-0.5 N BASOPHIL # (test code = BA#) 0.0 x10 3/uL 0.0-0.1 N POCT [id number] 14:05:00 Test Item Value Reference Range Interpretation Comments POCT PREG (test code = 1605) Negative On board controls acceptable with C Yes Line (test code = 3574) POCT PREG LOT # (test code = 3575) POCT PREG TEST DATE (test code = 3576) [id number] 14:05:00 Test Item Value Reference Range Interpretation Comments POCT PREG (test code = 1605) Negative On board controls acceptable with C Yes Line (test code = 3574) POCT PREG LOT # (test code = 3575) POCT PREG TEST DATE (test code = 3576) [facility] [id number] 23:29:00 Test Item Value Reference Range Interpretation Comments HCG SERUM (test <1 INTERPRETATI ON:VALUES BETWEEN code = HCG) 15-20 milliInte rnational units/mL NEED T O BERETESTED WITHIN 48 HOURS . All units for these ranges ar e in milliInternatio nalunits/mL0-1 WK AFTER CONCEP TION 0-50 1-2 W KS AFTER CONCEPTION 40-3002-3 WKS A FTER CONCEPTION 100-1 ,0003-4 WKS AFTER CONCEPTIO N 500-6,0001-2 MO NTHS AFTER CONCEPTION 5,000-200,0002- 3 MONTHS AFTER CONCEPTION 10,000-100,0002 ND TRIMESTER 3,000-50,0003RD TRIMESTER 1 ,000-50,000 SPECIMENS WITH AN HCG LEVEL FROM 0-6 milliInternatio nalunits/mL SHOULD BE CONSI DERED NEGATIVE UA RFLX MICR CULT IF [id number] 22:28:00 Test Item Value Reference Range Interpretation Comments UA COLOR (test code = COLU) YELLOW YELLOW UA APPEARANCE (test code = HAZY CLEAR APPU) UA GLUCOSE DIPSTICK (test code NEGATIVE NEGATIVE = DGLUU) UA BILIRUBIN DIPSTICK (test NEGATIVE NEGATIVE code = BILU) UA KETONE DIPSTICK (test code TRACE NEGATIVE = KETU) UA SPECIFIC GRAVITY (test code >= 1.030 1.001-1.035 N = SGU) UA BLOOD DIPSTICK (test code = 1+ NEGATIVE A SHOLA) UA PH DIPSTICK (test code = 6.0 5-9 CARL) UA PROTEIN DIPSTICK (test code 2+ NEGATIVE = PROU) UA UROBILINIOGEN DIPSTICK 0.2 EU/dL <=1.0 (test code = URO) UA NITRITE DIPSTICK (test code POSITIVE NEGATIVE A = WHITNEY) UA LEUKOCYTE ESTERASE DIPSTICK 1+ NEGATIVE A (test code = LEUU) UA WBC (test code = WBCU) 5-10 #/hpf NONE SEEN A UA RBC (test code = RBCU) 5-10 #/hpf NONE SEEN A UA EPITHELIAL CELLS (test code MODERATE #/hpf NONE SEEN A = EPIU) UA BACTERIA (test code = BACU) MODERATE #/hpf NONE SEEN A Indication for culture: Dysuria/FrequencyPOCT URINALYSIS W/O SPECIFIC [id number] 14:30:00 Test Item Value Reference Range Interpretation Comments POCT PH U (test code = 3254) error 5-8 POCT U LEUK EST (test code = 3263) . Negative - Negative POCT U NIT (test code = 3262) . Negative - Negative POCT U PROT (test code = 3259) . Negative - Negative POCT U GLU (test code = 3256) . Negative - Negative POCT U KETONE (test code = 3258) . Negative - Negative POCT U BLD (test code = 3257) . Negative - Negative [facility] [id number] 14:30:00 Test Item Value Reference Range Interpretation Comments POCT PREG (test code = 1605) Negative On board controls acceptable with C Yes Line (test code = 3574) POCT PREG LOT # (test code = 3575) POCT PREG TEST DATE (test code = 3576) [facility] URINALYSIS W SPECIFIC [id number] 14:13:00 Test Item Value Reference Range Interpretation Comments POCT U SP GRAV (test code = 3255) . 1.005-1.025 POCT PH U (test code = 3254) 5 mg/dl 5-8 POCT U LEUK EST (test code = 2+ Negative - Negative 3263) POCT U NIT (test code = 3262) POS Negative - Negative POCT U PROT (test code = 3259) Trace Negative - Negative POCT U GLU (test code = 3256) Neg Negative - Negative POCT U KETONE (test code = 3258) None Negative - Negative POCT U UROBILI (test code = 3260) . 0.2-1 POCT U BILI (test code = 3261) . Negative - Negative POCT U BLD (test code = 3417) Blood Negative - Negative POCT U COLOR (test code = 3266) POCT U APPEAR (test code = 5440) [facility]
[2021-04-06] MEDS ORDERED: HYDROCODONE/CHLORPHEN 5 ML/OSYR ONE (13:39)
--- NOTE | 2021-04-06 13:56 | RAD REPORT ---
EXAM DESCRIPTION: RAD - Chest Pa And Lat (2 Views) - 04/06/2021 1:47 pm CLINICAL HISTORY: Cough;SOB COMPARISON: October 2020 TECHNIQUE: Frontal and lateral views of the chest were obtained. FINDINGS: The lungs are clear. Heart size is normal and central vasculature is within normal limit s. No pleural effusion or pneumothorax seen. No acute bony finding noted. No aortic abnormality. No significant change from comparison study. IMPRESSION: No acute cardiopulmonary process.
[2021-04-06 16:13] LABS: SARS-COV-2 RT PCR NEGATIVE (NEGATIVE)
--- NOTE | 2021-04-06 16:22 | ER ---
Nurse's Notes [facility] Name: Niurka Alatorre Age: 21 yrs Sex: Female : 2000 Arrival Date: 04/06/2021 Time: 11:14 Bed Waiting Private MD: Diagnosis: Acute upper respiratory infection, unspecified Presentation: 04/06 13:30 Chief complaint: Patient states: h/a, cough, body aches x 1 month. Coronavirus screen: vg1 Vaccine status: Patient reports being unvaccinated. Client denies travel out of the [place] in the last 14 days. Ebola Screen: Patient negative for fever greater than or equal to 101.5 degrees Fahrenheit, and additional compatible Ebola Virus Disease symptoms. Initial Sepsis Screen: Does the patient meet any 2 criteria? No. Patient's initial sepsis screen is negative. Does the patient have a suspected source of infection? No. Patient's initial sepsis screen is negative. Risk Assessment: Do you want to hurt yourself or someone else? Patient reports no desire to harm self or others. Onset of symptoms was March 06, 2022. 13:30 Method Of Arrival: Ambulatory vg1 13:30 Acuity: ONEAL 4 vg1 Triage Assessment: 13:31 General: Appears in no apparent distress. comfortable, Behavior is calm, cooperative. vg1 Pain: Denies pain. 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 - Social history:: Smoking status: Patient denies any tobacco usage or history of. Screenin:49 Abuse screen: Denies threats or abuse. Nutritional screening: No deficits noted. vg1 Tuberculosis screening: No symptoms or risk factors identified. Fall Risk None identified. Assessment: 16:49 Reassessment: Patient appears in no apparent distress at this time. Patient and/or vg1 family updated on plan of care and expected duration. Pain level reassessed. Patient is alert, oriented x 3, equal unlabored respirations, skin warm/dry/pink. Patient denies pain at this time. Patient states feeling better. Vital Signs: 13:30 BP 138 / 79; Pulse 77; Resp 18; Temp 97.9; Pulse Ox 100% ; Weight 131.54 kg; Height 5 vg1 ft. 9 in. (175.26 cm); Pain 0/10; 13:30 Body Mass Index 42.83 (131.54 kg, 175.26 cm) vg1 ED Course: 11:14 Patient arrived in ED. am2 13:24 Senthil Bella NP is PHCP. pm1 13:24 Rob Quinn MD is Attending Physician. pm1 13:31 Triage completed. vg1 13:31 Arm band placed on. vg1 13:47 Chest Pa And Lat (2 Views) XRAY In Process Unspecified. EDMS 16:49 Patient has correct armband on for positive identification. vg1 16:49 No provider procedures requiring assistance completed. Patient did not have IV access vg1 during this emergency room visit. Administered Medications: 13:40 Drug: Tussionex Pennkinetic ER (chlorpheniramine-hydrocodone) Suspension 5 ml Route: PO;vg1 16:49 Follow up: Response: No adverse reaction; Marked relief of symptoms vg1 Outcome: 16:22 Discharge ordered by MD. pm1 16:49 Discharged to home ambulatory, with family. vg1 16:49 Condition: good 16:49 Discharge instructions given to patient, Instructed on discharge instructions, follow up and referral plans. medication usage, Demonstrated understanding of instructions, follow-up care, medications, Prescriptions given X 1. 16:50 Patient left the ED. vg1 Signatures: Dispatcher [employer] [facility] Senthil Bella NP RAILROAD COOK pm1 Jillian Vásquez am2 Huong Dela Cruz, RN RN vg1 Corrections: (The following items were deleted from the chart) 13: 13:31 PMHx: DIZZYNESS AND HEADACHES; vg1 vg1
--- NOTE | 2021-04-06 16:22 | EDPHYS ---
Physician Documentation [facility] Name: Niurka Alatorre Age: 21 yrs Sex: Female : 2000 Arrival Date: 04/06/2021 Time: 11:14 Bed Waiting Private MD: ED Physician Rob Quinn HPI: 04/06 14:09 This 21 yrs old Black Female presents to ER via Ambulatory with complaints of r/o covid.pm1 14:09 The patient or guardian reports cough, with no sputum. Onset: The symptoms/episode pm1 began/occurred 1 month(s) ago. Severity of symptoms: in the emergency department the symptoms have improved. Modifying factors: The symptoms are alleviated by cough syrup of her roommate that was diagnosed with covid recently. Associated signs and symptoms: Pertinent positives: headache and body aches have resolved, Pertinent negatives: ear ache, fever, sore throat. The patient has not experienced similar symptoms in the past. The patient has not recently seen a physician. 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 - Social history:: Smoking status: Patient denies any tobacco usage or history of. ROS: 14:09 Eyes: Negative for injury, pain, redness, and discharge, ENT: Negative for injury, pm1 pain, and discharge, Cardiovascular: Negative for chest pain, palpitations, and edema. 14:09 Abdomen/GI: Negative for abdominal pain, nausea, vomiting, diarrhea, and constipation, Back: Negative for injury and pain, MS/Extremity: Negative for injury and deformity, Skin: Negative for injury, rash, and discoloration, Neuro: Negative for headache, weakness, numbness, tingling, and seizure. 14:09 Constitutional: Positive for body aches, Negative for fever, poor PO intake. 14:09 Respiratory: Positive for cough, shortness of breath. 14:09 All other systems are negative. Exam: 14:09 Constitutional: This is a well developed, well nourished patient who is awake, alert, pm1 and in no acute distress. Head/Face: Normocephalic, atraumatic. 14:09 Skin: Warm, dry with normal turgor. Normal color with no rashes, no lesions, and no evidence of cellulitis. MS/ Extremity: Pulses equal, no cyanosis. Neurovascular intact. Full, normal range of motion. 14:09 Eyes: Exam is negative for acute changes, Periorbital structures: appear normal, Extraocular movements: no acute changes. 14:09 ENT: Exam is negative for acute changes, External ear(s): no acute changes, Ear canal(s): no acute changes, TM's: no acute changes, Mouth: no acute changes, Lips: normal, moist, Oral mucosa: normal, pink and intact, moist. 14:09 Cardiovascular: Exam negative for acute changes, Rate: normal, Rhythm: regular, Pulses: no pulse deficits are appreciated, Heart sounds: normal, normal S1and S2. 14:09 Respiratory: Exam negative for acute changes, respiratory distress, shortness of breath, Breath sounds: are clear throughout. 14:09 Abdomen/GI: Inspection: obese Palpation: abdomen is soft and non-tender, in all quadrants. 14:09 Neuro: Exam negative for acute changes, Orientation: is normal, Mentation: is normal, Motor: is normal, moves all fours, Gait: is steady, at a normal pace, without difficulty. Vital Signs: 13:30 BP 138 / 79; Pulse 77; Resp 18; Temp 97.9; Pulse Ox 100% ; Weight 131.54 kg; Height 5 vg1 ft. 9 in. (175.26 cm); Pain 0/10; 13:30 Body Mass Index 42.83 (131.54 kg, 175.26 cm) vg1 MDM: 14:09 Patient medically screened. pm1 16:20 Data reviewed: vital signs. Data interpreted: Pulse oximetry: on room air is 100 %. pm1 Interpretation: normal. Counseling: I had a detailed discussion with the patient and/or guardian regarding: the historical points, exam findings, and any diagnostic results supporting the discharge/admit diagnosis, lab results, radiology results, the need for outpatient follow up, to return to the emergency department if symptoms worsen or persist or if there are any questions or concerns that arise at home. 16:24 ED course: HEDIS REVIEW NURSE Aware reviewed. pm1 04/06 13:24 Order name: COVID-19/FLU A+B (Document "Date of Onset" if Symptomatic); Complete Time: pm1 16:18 04/06 13:25 Order name: Chest Pa And Lat (2 Views) XRAY; Complete Time: 14:09 pm1 Administered Medications: 13:40 Drug: Tussionex Pennkinetic ER (chlorpheniramine-hydrocodone) Suspension 5 ml Route: PO;vg1 16:49 Follow up: Response: No adverse reaction; Marked relief of symptoms vg1 Disposition: 04/07 07:47 Co-signature as Attending Physician, Rob Quinn MD I agree with the assessment and bernardino plan of care. Disposition Summary: 04/06/21 16:22 Discharge Ordered Location: Home pm1 Problem: new pm1 Symptoms: have improved pm1 Condition: Stable pm1 Diagnosis - Acute upper respiratory infection, unspecified pm1 Followup: pm1 - With: Emergency Department - When: As needed - Reason: Worsening of condition Followup: pm1 - With: Private Physician - When: 2 - 3 days - Reason: Recheck today's complaints, Continuance of care, Re-evaluation by your physician Discharge Instructions: - Discharge Summary Sheet pm1 - Upper Respiratory Infection, Adult pm1 - Viral Respiratory Infection pm1 Forms: - Medication Reconciliation Form pm1 - Thank You Letter pm1 - Antibiotic Education pm1 - Prescription Opioid Use pm1 Prescriptions: - Guaifenesin AC 10-100 mg/5 mL Oral Liquid - take 10 milliliters by ORAL route every 4 hours As needed; 240 milliliter; pm1 Refills: 0, Product Selection Permitted Signatures: Dispatcher [employer] EDRob Boyle MD MD cha Marinas, Patrick, HIGH FREQUENCY MILL OPERATOR HIGH FREQUENCY MILL OPERATOR pm1 Huong Dela Cruz, RN RN vg1 Corrections: (The following items were deleted from the chart) 04/06 13:31 13:31 PMHx: DIZZYNESS AND HEADACHES; vg1 vg1
[2021-04-06 16:55] VITALS: BP 138/79; TEMP 97.9; O2SAT 100
== END 2021-04-06 16:50 | disposition home or self-care (01) ==
LOC: ER 11:08
DX: J06.9 Acute upper respiratory infection, unspecified (principal); Z20.822 Contact with and (suspected) exposure to COVID-19
CPT/HCPCS: 0240U; 71046; 99283

== ENCOUNTER 2021-11-09 12:49 | Emergency (ER) | payer OTHER ==
--- OUTSIDE RECORDS SUMMARY | 2021-11-09 13:01 | XMS REPORT | Continuity of Care Document ---
:2000 Author Organization [facility] t Address [address] [place] [address] Care Team Providers Name Role Phone IY WELLS Primary Care Physician Unavailable MILAGROS BAILEY Attending Clinician Unavailable IY WELLS Attending Clinician Unavailable Visit, Ilia-Rmchjose roberto Nurse Attending Clinician Unavailable Yi Gaston Attending Clinician Doctor Unassigned, [place] Attending Clinician Unavailable Milagros Denis Attending Clinician Jimmy Bryant DO Attending Clinician Veronica Clement Attending Clinician VERONICA WALTER Attending Clinician Unavailable Payers Payer Name Policy Type Policy Number Effective Date Expiration Date S tiara GOFF/[facility] DUAL [id number] 2020 00:00:00 COMP HMO D SNP [facility] [place] STAR [id number] 2018 00:00:00 Problems Condition Condition Condition Status Onset Resolution Last Treating Co mments Source Name Details Category Date Date Treatment Clinician Date UTI UTI Disease Active Overview: Univer s (urinary (urinary 8-19 Treated ity o f tract tract 00:00: on [place] infection) infection) 00 11/06/2018 [facility] Branch Chlamydia Chlamydia Disease Active Uni vers trachomati trachomati 2-07 it y of s s 00:00: [place] infection infection 00 [facility] lower Branch genitourin genitourin sofia sites sofia sites BMI BMI Disease Active 2018- Univers 33.0-33.9, 33.0-33.9, 2-06 it y of adult adult 00:00: [address] No known No known Disease Unive rs active active ity of problems problems [facility] Allergies, Adverse Reactions, Alerts Allergy Allergy Status Severity Reaction(s) Onset Inactive Treating Comm ents Source Name Type Date Date Clinician No Known DA Active U [facility] [address] [place] s 00:00: Health 00 are [facility] No Known DA Active U [facility] [address] [place] 00:00: Health 00 are [facility] No Known DA Active U [facility]16 [facility]: [facility] 00 [facility] NO KNOWN Drug Active Univers ALLERGIE Class ity of S [facility] Social History Social Habit Start Date Stop Date Quantity Comments Source Exposure to Not sure [facility] SARS-CoV-2 [facility] (event) Branch Tobacco use and 2020-08-20 2020-08-20 Never used Universit y of exposure 00:00:00 00:00:00 [facility] Alcohol intake 2020-08-20 2020-08-20 Current University of 00:00:00 00:00:00 non-drinker of [facility] alcohol Branch (finding) Sex Assigned At 2000 2000 Universit y of 00:00:00 00:00:00 [facility] Smoking Status Start Date Stop Date Source Never smoker [facility] Medications Ordered Filled Start Stop Current Ordering Indication Dosage Frequency Signature Comments Components Source Medication Medication Date Date Medication? Clinician (SIG) Name Name LOESTRIN FE Yes [id number] 1{tbl} Take 1 Univers (MICROGESTI 6-02 tablet by ity of Nikko FE 04/09) 00:00: mouth [place] 1 mg-20 mcg 00 daily. Medica l (21)/75 mg Branch (7) tablet LOESTRIN FE Yes [id number] 1{tbl} Take 1 Univers (MICROGESTI 3-02 tablet by ity of N FE 04/09) 00:00: mouth [place] 1 mg-20 mcg 00 daily. Medica l (21)/75 mg Branch (7) tablet LOESTRIN FE 0 Yes [id number] 1{tbl} Take 1 Univers (MICROGESTI 3-02 tablet by ity of N FE 04/09) 00:00: mouth [place] 1 mg-20 mcg 00 daily. Medica l (21)/75 mg Branch (7) tablet LOESTRIN FE 0 Yes [id number] 1{tbl} Take 1 Univers (MICROGESTI 3-02 tablet by ity of N FE 04/09) 00:00: mouth [place] 1 mg-20 mcg 00 daily. Medica l (21)/75 mg Branch (7) tablet LOESTRIN FE 0 Yes [id number] 1{tbl} Take 1 Univers (MICROGESTI 3-02 tablet by ity of N FE 04/09) 00:00: mouth [place] 1 mg-20 mcg 00 daily. Medica l (21)/75 mg Branch (7) tablet LOESTRIN FE Yes [id number] 1{tbl} Take 1 Univers (MICROGESTI 3-02 tablet by ity of N FE 04/09) 00:00: mouth [place] 1 mg-20 mcg 00 daily. Medica l (21)/75 mg Branch (7) tablet LOESTRIN FE 2020- No [id number] 1{tbl} Take 1 Univers (MICROGESTI 3-02 06-02 tablet by it y of N FE 04/09) 00:00: 00:00 mouth [place] 1 mg-20 mcg 00 :00 daily. Medica l (21)/75 mg Branch (7) tablet Nitrofurant 2019- No [id number] 100mg Take 1 Univers oin&Nit. 11-06 capsule by ity of [place] 00:00: 04:59 mouth 2 [place] as (MACROBID) 00 :00 (two) Medical 100 mg times Branch capsule daily for 10 days. Nitrofurant 2019- No [id number] 100mg Take 1 Univers oin&Nit. 11-06 capsule by ity of [place] 00:00: 04:59 mouth 2 [place] as (MACROBID) 00 :00 (two) Medical 100 mg times Branch capsule daily for 10 days. Nitrofurant 2018- No [id number] 100mg Take 1 Univers oin&Nit. 11-06 capsule by ity of [place] 00:00: 04:59 mouth 2 [place] as (MACROBID) 00 :00 (two) Medical 100 mg times Branch capsule daily for 10 days. Nitrofurant 2018- No [id number] 100mg Take 1 Univers oin&Nit. 11-06 capsule by ity of [place] 00:00: 04:59 mouth 2 [place] as (MACROBID) 00 :00 (two) Medical 100 mg times Branch capsule daily for 10 days. Nitrofurant 2018- No [id number] 100mg Take 1 Univers oin&Nit. 11-06 capsule by ity of [place] 00:00: 04:59 mouth 2 [place] as (MACROBID) 00 :00 (two) Medical 100 mg times Branch capsule daily for 10 days. No known No Univers medications ity [facility] No known No Univers medications ity [facility] No known No Univers medications ity [facility] No known No [facility] Immunizations Ordered Immunization Filled Immunization Date Status Commen ts Source Name Name Influenza Virus 2017-12-18 Completed Universit y of Vaccine 00:00:00 [facility] Influenza Virus 2017-12-18 Completed Universit y of Vaccine 00:00:00 [facility] Influenza Virus 2017-12-18 Completed Universit y of Vaccine 00:00:00 [facility] Influenza Virus 2017-12-18 Completed Universit y of Vaccine 00:00:00 [facility] Influenza Virus 2017-12-18 Completed Universit y of Vaccine 00:00:00 [facility] Influenza Virus 2017-12-18 Completed Universit y of Vaccine 00:00:00 [facility] Influenza Virus 2017-12-18 Completed Universit y of Vaccine 00:00:00 [facility] Influenza Virus 2017-12-18 Completed Universit y of Vaccine 00:00:00 [facility] Influenza Virus 2017-12-18 Completed Universit y of Vaccine 00:00:00 [facility] Influenza Virus 2017-12-18 Completed Universit y of Vaccine 00:00:00 [facility] Influenza Virus 2017-12-18 Completed Universit y of Vaccine 00:00:00 [facility] Influenza Virus 2017-12-18 Completed Universit y of Vaccine 00:00:00 [facility] Influenza Virus 2017-12-18 Completed Universit y of Vaccine 00:00:00 [facility] Influenza Virus 2017-12-18 Completed Universit y of Vaccine 00:00:00 [facility] Influenza Virus 2017-12-18 Completed Universit y of Vaccine 00:00:00 [facility] Influenza Virus 2017-12-18 Completed Universit y of Vaccine 00:00:00 [facility] HPV 2011-12-27 Completed University of 00:00:00 [facility] Influenza Virus 2011-12-27 Completed Universit y of Vaccine (3+ yrs) 00:00:00 [facility] Meningococcal 2011-12-27 Completed University of Polysaccharide 00:00:00 [place] Medi elder (groups A, C, Y and Branc h W-135) conjugate vaccine (MCV4P) TDAP 2011-12-27 Completed University of 00:00:00 [facility] HPV 2011-12-27 Completed University of 00:00:00 [facility] Influenza Virus 2011-12-27 Completed Universit y of Vaccine (3+ yrs) 00:00:00 [facility] Meningococcal 2011-12-27 Completed University of Polysaccharide 00:00:00 [place] Medi elder (groups A, C, Y and Branc h W-135) conjugate vaccine (MCV4P) TDAP 2011-12-27 Completed University of 00:00:00 [facility] HPV 2011-12-27 Completed University of 00:00:00 [facility] Influenza Virus 2011-12-27 Completed Universit y of Vaccine (3+ yrs) 00:00:00 [facility] Meningococcal 2011-12-27 Completed University of Polysaccharide 00:00:00 [place] Med[facility] elder (groups A, C, Y and Branc h W-135) conjugate vaccine (MCV4P) TDAP 2011-12-27 Completed University of 00:00:00 [facility] HPV 2011-12-27 Completed University of 00:00:00 [facility] Influenza Virus 2011-12-27 Completed Universit y of Vaccine (3+ yrs) 00:00:00 [facility] Meningococcal 2011-12-27 Completed University of Polysaccharide 00:00:00 [place] Med[facility] elder (groups A, C, Y and Branc h W-135) conjugate vaccine (MCV4P) TDAP 2011-12-27 Completed University of 00:00:00 [facility] HPV 2011-12-27 Completed University of 00:00:00 [facility] Influenza Virus 2011-12-27 Completed Universit y of Vaccine (3+ yrs) 00:00:00 [facility] Meningococcal 2011-12-27 Completed University of Polysaccharide 00:00:00 [place] Med[facility] elder (groups A, C, Y and Branc h W-135) conjugate vaccine (MCV4P) TDAP 2011-12-27 Completed University of 00:00:00 [facility] HPV 2011-12-27 Completed University of 00:00:00 [facility] Influenza Virus 2011-12-27 Completed Universit y of Vaccine (3+ yrs) 00:00:00 [facility] Meningococcal 2011-12-27 Completed University of Polysaccharide 00:00:00 [place] Med[facility] elder (groups A, C, Y and Branc h W-135) conjugate vaccine (MCV4P) TDAP 2011-12-27 Completed University of 00:00:00 [facility] HPV 2011-12-27 Completed University of 00:00:00 [facility] Influenza Virus 2011-12-27 Completed Universit y of Vaccine (3+ yrs) 00:00:00 [facility] Meningococcal 2011-12-27 Completed University of Polysaccharide 00:00:00 [place] Med[facility] elder (groups A, C, Y and Branc h W-135) conjugate vaccine (MCV4P) TDAP 2011-12-27 Completed University of 00:00:00 [facility] HPV 2011-12-27 Completed University of 00:00:00 [facility] Influenza Virus 2011-12-27 Completed Universit y of Vaccine (3+ yrs) 00:00:00 [facility] Meningococcal 2011-12-27 Completed University of Polysaccharide 00:00:00 [place] [facility]i elder (groups A, C, Y and Branc h W-135) conjugate vaccine (MCV4P) TDAP 2011-12-27 Completed University of 00:00:00 [facility] HPV 2011-12-27 Completed University of 00:00:00 [facility] Influenza Virus 2011-12-27 Completed Universit y of Vaccine (3+ yrs) 00:00:00 [place] [facility] Meningococcal 2011-12-27 Completed University of Polysaccharide 00:00:00 [facility] elder (groups A, C, Y and Branc h W-135) conjugate vaccine (MCV4P) TDAP 2011-12-27 Completed University of 00:00:00 [facility] Varicella 2007-02-23 Completed University of (varivax)(chicken 00:00:00 [...] HEPATITIS A 2007-01-09 Completed University of 00:00:00 [facility] HEPATITIS A 2007-01-09 Completed University of 00:00:00 [facility] HEPATITIS A 2007-01-09 Completed University of 00:00:00 [facility] HEPATITIS A 2007-01-09 Completed University of 00:00:00 [facility] HEPATITIS A 2007-01-09 Completed University of 00:00:00 [facility] HEPATITIS A 2007-01-09 Completed University of 00:00:00 [facility] Varicella 2007-01-09 Completed University of (varivax)(chicken 00:00:00 [place] [facility] pox) Branch HEPATITIS A 2007-01-09 Completed University of 00:00:00 [facility] Varicella 2007-01-09 Completed University of (varivax)(chicken 00:00:00 [place] [facility] pox) Branch HEPATITIS A 2007-01-09 Completed University of 00:00:00 [facility] Varicella 2007-01-09 Completed University of (varivax)(chicken 00:00:00 [place] [facility] pox) Branch HEPATITIS A 2007-01-09 Completed University of 00:00:00 [facility] Varicella 2007-01-09 Completed University of (varivax)(chicken 00:00:00 [place] [facility] pox) Branch HEPATITIS A 2007-01-09 Completed University of 00:00:00 [facility] Varicella 2007-01-09 Completed University of (varivax)(chicken 00:00:00 [place] [facility] pox) Branch HEPATITIS A 2007-01-09 Completed University of 00:00:00 [facility] Varicella 2007-01-09 Completed University of (varivax)(chicken 00:00:00 [place] [facility] pox) Branch HEPATITIS A 2007-01-09 Completed University of 00:00:00 [facility] Varicella 2007-01-09 Completed University of (varivax)(chicken 00:00:00 [place] [facility] pox) Branch HEPATITIS A 2007-01-09 Completed University of 00:00:00 [facility] Varicella 2007-01-09 Completed University of (varivax)(chicken 00:00:00 [place] [facility] pox) Branch HEPATITIS A 2007-01-09 Completed University of 00:00:00 [facility] Branch Varicella 2007-01-09 Completed University of (varivax)(chicken 00:00:00 [place] [facility] pox) Branch HEPATITIS A 2007-01-09 Completed University of 00:00:00 [facility] Branch HEPATITIS A 2007-01-09 Completed University of 00:00:00 [facility] Branch HEPATITIS A 2006-03-23 Completed University of 00:00:00 [facility] Branch HEPATITIS A 2006-03-23 Completed University of 00:00:00 [facility] Branch HEPATITIS A 2006-03-23 Completed University of 00:00:00 [facility] Branch HEPATITIS A 2006-03-23 Completed University of 00:00:00 [facility] Branch HEPATITIS A 2006-03-23 Completed University of 00:00:00 [facility] HEPATITIS A 2006-03-23 Completed University of 00:00:00 [facility] HEPATITIS A 2006-03-23 Completed University of 00:00:00 [facility] HEPATITIS A 2006-03-23 Completed University of 00:00:00 [facility] HEPATITIS A 2006-03-23 Completed University of 00:00:00 [facility] Branch DTAP 2005-03-23 Completed University of 00:00:00 [facility] IPV 2005-03-23 Completed University of 00:00:00 [facility] Branch MMR 2005-03-23 Completed University of 00:00:00 [facility] HEPATITIS A 2005-03-23 Completed University of 00:00:00 [facility] Branch DTAP 2005-03-23 Completed University of 00:00:00 [facility] IPV 2005-03-23 Completed University of 00:00:00 [facility] Branch MMR 2005-03-23 Completed University of 00:00:00 [facility] HEPATITIS A 2005-03-23 Completed University of 00:00:00 [facility] Branch DTAP 2005-03-23 Completed University of 00:00:00 [facility] Branch IPV 2005-03-23 Completed University of 00:00:00 [facility] Branch MMR 2005-03-23 Completed University of 00:00:00 [facility] HEPATITIS A 2005-03-23 Completed University of 00:00:00 [facility] Branch DTAP 2005-03-23 Completed University of 00:00:00 [facility] Branch IPV 2005-03-23 Completed University of 00:00:00 [facility] Branch MMR 2005-03-23 Completed University of 00:00:00 [place] [facility] HEPATITIS A 2005-03-23 Completed University of 00:00:00 [place] [facility] DTAP 2005-03-23 Completed University of 00:00:00 [place] [facility] IPV 2005-03-23 Completed University of 00:00:00 [place] [facility] MMR 2005-03-23 Completed University of 00:00:00 [place] [facility] HEPATITIS A 2005-03-23 Completed University of 00:00:00 [place] [facility] DTAP 2005-03-23 Completed University of 00:00:00 [place] [facility] IPV 2005-03-23 Completed University of 00:00:00 [place] [facility] MMR 2005-03-23 Completed University of 00:00:00 [place] [facility] HEPATITIS A 2005-03-23 Completed University of 00:00:00 [place] [facility] DTAP 2005-03-23 Completed University of 00:00:00 [place] [facility] IPV 2005-03-23 Completed University of 00:00:00 [place] [facility] MMR 2005-03-23 Completed University of 00:00:00 [place] [facility] HEPATITIS A 2005-03-23 Completed University of 00:00:00 [place] [facility] DTAP 2005-03-23 Completed University of 00:00:00 [place] [facility] IPV 2005-03-23 Completed University of 00:00:00 [place] [facility] MMR 2005-03-23 Completed University of 00:00:00 [facility] Branch HEPATITIS A 2005-03-23 Completed University of 00:00:00 [place] [facility] DTAP 2005-03-23 Completed University of 00:00:00 [place] [facility] IPV 2005-03-23 Completed University of 00:00:00 [place] [facility] MMR 2005-03-23 Completed University of 00:00:00 [facility] Branch HEPATITIS A 2005-03-23 Completed University of 00:00:00 [place] [facility] DTAP 2002-03-28 Completed University of 00:00:00 [place] [facility] IPV 2002-03-28 Completed University of 00:00:00 [facility] Branch MMR 2002-03-28 Completed University of 00:00:00 [facility] Branch Varicella 2002-03-28 Completed University of (varivax)(chicken 00:00:00 [place] [facility] pox) Branch Heamophilus Influenza 2002-03-28 Completed Uni versity of B 00:00:00 [facility] Branch DTAP 2002-03-28 Completed University of 00:00:00 [place] [facility] IPV 2002-03-28 Completed University of 00:00:00 [facility] MMR 2002-03-28 Completed University of 00:00:00 [facility] Branch Varicella 2002-03-28 Completed University of (varivax)(chicken 00:00:00 [place] [facility] pox) Branch Heamophilus Influenza 2002-03-28 Completed Uni versity of B 00:00:00 [facility] DTAP 2002-03-28 Completed University of 00:00:00 [facility] IPV 2002-03-28 Completed University of 00:00:00 [facility] MMR 2002-03-28 Completed University of 00:00:00 [facility] Varicella 2002-03-28 Completed University of (varivax)(chicken 00:00:00 [place] [facility] pox) Branch Heamophilus Influenza 2002-03-28 Completed Uni versity of B 00:00:00 [facility] DTAP 2002-03-28 Completed University of 00:00:00 [facility] IPV 2002-03-28 Completed University of 00:00:00 [facility] MMR 2002-03-28 Completed University of 00:00:00 [facility] Varicella 2002-03-28 Completed University of (varivax)(chicken 00:00:00 [place] [facility] pox) Branch Heamophilus Influenza 2002-03-28 Completed Uni versity of B 00:00:00 [facility] DTAP 2002-03-28 Completed University of 00:00:00 [facility] IPV 2002-03-28 Completed University of 00:00:00 [facility] MMR 2002-03-28 Completed University of 00:00:00 [facility] Varicella 2002-03-28 Completed University of (varivax)(chicken 00:00:00 [place] [facility] pox) Branch Heamophilus Influenza 2002-03-28 Completed Uni versity of B 00:00:00 [facility] DTAP 2002-03-28 Completed University of 00:00:00 [facility] IPV 2002-03-28 Completed University of 00:00:00 [facility] MMR 2002-03-28 Completed University of 00:00:00 [facility] Varicella 2002-03-28 Completed University of (varivax)(chicken 00:00:00 [place] [facility] pox) Branch Heamophilus Influenza 2002-03-28 Completed Uni versity of B 00:00:00 [facility] DTAP 2002-03-28 Completed University of 00:00:00 [facility] IPV 2002-03-28 Completed University of 00:00:00 [place] [facility] MMR 2002-03-28 Completed University of 00:00:00 [facility] Branch Varicella 2002-03-28 Completed University of (varivax)(chicken 00:00:00 [place] [facility] pox) Branch Heamophilus Influenza 2002-03-28 Completed Uni versity of B 00:00:00 [facility] Branch DTAP 2002-03-28 Completed University of 00:00:00 [facility] Branch IPV 2002-03-28 Completed University of 00:00:00 [place] [facility] MMR 2002-03-28 Completed University of 00:00:00 [facility] Branch Varicella 2002-03-28 Completed University of (varivax)(chicken 00:00:00 [place] [facility] pox) Branch Heamophilus Influenza 2002-03-28 Completed Uni versity of B 00:00:00 [facility] Branch DTAP 2002-03-28 Completed University of 00:00:00 [facility] Branch IPV 2002-03-28 Completed University of 00:00:00 [facility] Branch MMR 2002-03-28 Completed University of 00:00:00 [facility] Branch Varicella 2002-03-28 Completed University of (varivax)(chicken 00:00:00 [place] [facility] pox) Branch Heamophilus Influenza 2002-03-28 Completed Uni versity of B 00:00:00 [facility] Hep B, Adol or Pedi 2002-01-19 Completed Unive rsity of Dosage 00:00:00 [facility] Branch Hep B, Adol or Pedi 2002-01-19 Completed Unive rsity of Dosage 00:00:00 [facility] Branch Hep B, Adol or Pedi 2002-01-19 Completed Unive rsity of Dosage 00:00:00 [facility] Branch Hep B, Adol or Pedi 2002-01-19 Completed Unive rsity of Dosage 00:00:00 [facility] Branch Hep B, Adol or Pedi 2002-01-19 Completed Unive rsity of Dosage 00:00:00 [facility] Branch Hep B, Adol or Pedi 2002-01-19 Completed Unive rsity of Dosage 00:00:00 [facility] Branch Hep B, Adol or Pedi 2002-01-19 Completed Unive rsity of Dosage 00:00:00 [facility] Hep B, Adol or Pedi 2002-01-19 Completed [facility]ive [facility] of Dosage 00:00:00 [facility] Hep B, Adol or Pedi 2002-01-19 Completed Unive rsity of Dosage 00:00:00 [facility] DTAP 2001-01-19 Completed University of 00:00:00 [facility] Hep B, Adol or Pedi 2001-01-19 Completed Unive rsity of Dosage 00:00:00 [facility] Heamophilus Influenza 2001-01-19 Completed Uni versity of B 00:00:00 [facility] DTAP 2001-01-19 Completed University of 00:00:00 [facility] Hep B, Adol or Pedi 2001-01-19 Completed Unive rsity of Dosage 00:00:00 [facility] Heamophilus Influenza 2001-01-19 Completed Uni versity of B 00:00:00 [facility] DTAP 2001-01-19 Completed University of 00:00:00 [facility] Hep B, Adol or Pedi 2001-01-19 Completed Unive rsity of Dosage 00:00:00 [facility] Heamophilus Influenza 2001-01-19 Completed Uni versity of B 00:00:00 [facility] DTAP 2001-01-19 Completed University of 00:00:00 [facility] Hep B, Adol or Pedi 2001-01-19 Completed Unive rsity of Dosage 00:00:00 [facility] Heamophilus Influenza 2001-01-19 Completed Uni versity of B 00:00:00 [facility] DTAP 2001-01-19 Completed University of 00:00:00 [facility] Hep B, Adol or Pedi 2001-01-19 Completed Unive rsity of Dosage 00:00:00 [facility] Heamophilus Influenza 2001-01-19 Completed Uni versity of B 00:00:00 [facility] DTAP 2001-01-19 Completed University of 00:00:00 [facility] Hep B, Adol or Pedi 2001-01-19 Completed Unive rsity of Dosage 00:00:00 [facility] Heamophilus Influenza 2001-01-19 Completed Uni versity of B 00:00:00 [facility] DTAP 2001-01-19 Completed University of 00:00:00 [facility] Hep B, Adol or Pedi 2001-01-19 Completed Unive rsity of Dosage 00:00:00 [facility] Heamophilus Influenza 2001-01-19 Completed Uni versity of B 00:00:00 [facility] DTAP 2001-01-19 Completed University of 00:00:00 [facility] Hep B, Adol or Pedi 2001-01-19 Completed Unive rsity of Dosage 00:00:00 [facility] Heamophilus Influenza 2001-01-19 Completed Uni versity of B 00:00:00 [facility] DTAP 2001-01-19 Completed University of 00:00:00 [facility] Hep B, Adol or Pedi 2001-01-19 Completed Unive rsity of Dosage 00:00:00 [facility] Heamophilus Influenza 2001-01-19 Completed Uni versity of B 00:00:00 [facility] DTAP 2000 Completed University of 00:00:00 [facility] IPV 2000 Completed University of 00:00:00 [facility] Pneumococcal 7 2000 Completed University of Conjugate, PCV7 00:00:00 [facility] (Prevnar7) [place] Heamophilus Influenza 2000 Completed Uni versity of B 00:00:00 [facility] DTAP 2000 Completed University of 00:00:00 [facility] IPV 2000 Completed University of 00:00:00 [facility] Pneumococcal 7 2000 Completed University of Conjugate, PCV7 00:00:00 [place] [facility] Uni [facility] of B 00:00:00 [facility] DTAP 2000 Completed University of 00:00:00 [facility] IPV 2000 Completed University of 00:00:00 [facility] Pneumococcal 7 2000 Completed University of Conjugate, PCV7 00:00:00 [facility] (Prevnar7) [facility] Heamophilus Influenza 2000 Completed Uni versity of B 00:00:00 [facility] DTAP 2000 Completed University of 00:00:00 [facility] IPV 2000 Completed University of 00:00:00 [facility] Pneumococcal 7 2000 Completed University of Conjugate, PCV7 00:00:00 [facility] (Prevnar7) [facility] Heamophilus Influenza 2000 Completed Uni versity of B 00:00:00 [facility] DTAP 2000 Completed University of 00:00:00 [facility] IPV 2000 Completed University of 00:00:00 [facility] Pneumococcal 7 2000 Completed University of Conjugate, PCV7 00:00:00 [facility] (Prevnar7) [facility] Heamophilus Influenza 2000 Completed Uni versity of B 00:00:00 [facility] DTAP 2000 Completed University of 00:00:00 [facility] IPV 2000 Completed University of 00:00:00 [facility] Pneumococcal 7 2000 Completed University of Conjugate, PCV7 00:00:00 [facility] (Prevnar7) [facility] Heamophilus Influenza 2000 Completed Uni versity of B 00:00:00 [facility] DTAP 2000 Completed University of 00:00:00 [facility] IPV 2000 Completed University of 00:00:00 [facility] Pneumococcal 7 2000 Completed University of Conjugate, PCV7 00:00:00 [facility] (Prevnar7) [facility] Heamophilus Influenza 2000 Completed Uni versity of B 00:00:00 [facility] DTAP 2000 Completed University of 00:00:00 [facility] IPV 2000 Completed University of 00:00:00 [facility] Pneumococcal 7 2000 Completed University of Conjugate, PCV7 00:00:00 [facility] (Prevnar7) [facility] Heamophilus Influenza 2000 Completed Uni versity of B 00:00:00 [facility] DTAP 2000 Completed University of 00:00:00 [facility] IPV 2000 Completed University of 00:00:00 [facility] Pneumococcal 7 2000 Completed University of Conjugate, PCV7 00:00:00 [facility] (Prevnar7) [facility] Heamophilus Influenza 2000 Completed Uni versity of B 00:00:00 [facility] DTAP 2000 Completed University of 00:00:00 [facility] Hep B, Adol or Pedi 2000 Completed Unive rsity of Dosage 00:00:00 [facility] IPV 2000 Completed University of 00:00:00 [facility] Heamophilus Influenza 2000 Completed Uni versity of B 00:00:00 [facility] DTAP 2000 Completed University of 00:00:00 [facility] Hep B, Adol or Pedi 2000 Completed Unive rsity of Dosage 00:00:00 [facility] IPV 2000 Completed University of 00:00:00 [facility] Heamophilus Influenza 2000 Completed Uni versity of B 00:00:00 [facility] DTAP 2000 Completed University of 00:00:00 [facility] Hep B, Adol or Pedi 2000 Completed Unive rsity of Dosage 00:00:00 [facility] IPV 2000 Completed University of 00:00:00 [facility] Heamophilus Influenza 2000 Completed Uni versity of B 00:00:00 [facility] DTAP 2000 Completed University of 00:00:00 [facility] Hep B, Adol or Pedi 2000 Completed Unive rsity of Dosage 00:00:00 [facility] IPV 2000 Completed University of 00:00:00 [facility] Heamophilus Influenza 2000 Completed Uni versity of B 00:00:00 [facility] DTAP 2000 Completed University of 00:00:00 [facility] Hep B, Adol or Pedi 2000 Completed Unive rsity of Dosage 00:00:00 [facility] IPV 2000 Completed University of 00:00:00 [facility] Heamophilus Influenza 2000 Completed Uni versity of B 00:00:00 [facility] DTAP 2000 Completed University of 00:00:00 [facility] Hep B, Adol or Pedi 2000 Completed Unive rsity of Dosage 00:00:00 [facility] IPV 2000 Completed University of 00:00:00 [facility] Heamophilus Influenza 2000 Completed Uni versity of B 00:00:00 [facility] DTAP 2000 Completed University of 00:00:00 [facility] Hep B, Adol or Pedi 2000 Completed Unive rsity of Dosage 00:00:00 [facility] IPV 2000 Completed University of 00:00:00 [facility] Heamophilus Influenza 2000 Completed Uni versity of B 00:00:00 [facility] DTAP 2000 Completed University of 00:00:00 [facility] Hep B, Adol or Pedi 2000 Completed Unive rsity of Dosage 00:00:00 [facility] IPV 2000 Completed University of 00:00:00 [facility] Heamophilus Influenza 2000 Completed Uni versity of B 00:00:00 [facility] DTAP 2000 Completed University of 00:00:00 [facility] Hep B, Adol or Pedi 2000 Completed Unive rsity of Dosage 00:00:00 [facility] IPV 2000 Completed University of 00:00:00 [facility] Heamophilus Influenza 2000 Completed Uni versity of B 00:00:00 [facility] Hep B, Adol or Pedi 2000 Completed Unive rsity of Dosage 00:00:00 [facility] Hep B, Adol or Pedi 2000 Completed Unive rsity of Dosage 00:00:00 [facility] Hep B, Adol or Pedi 2000 Completed Unive rsity of Dosage 00:00:00 [facility] Hep B, Adol or Pedi 2000 Completed Unive rsity of Dosage 00:00:00 [facility] Hep B, Adol or Pedi 2000 Completed Unive rsity of Dosage 00:00:00 [facility] Hep B, Adol or Pedi 2000 Completed Unive rsity of Dosage 00:00:00 [facility] Hep B, Adol or Pedi 2000 Completed Unive rsity of Dosage 00:00:00 [facility] Hep B, Adol or Pedi 2000 Completed Unive rsity of Dosage 00:00:00 [facility] Hep B, Adol or Pedi 2000 Completed Unive rsity of Dosage 00:00:00 [facility] Vital Signs Vital Name Observation Time Observation Value Comments Source Systolic blood 2020-08-20 14:56:00 125 mm[Hg] Univer sity of pressure [facility] Diastolic blood 2020-08-20 14:56:00 76 mm[Hg] Unive rsity of pressure [facility] Heart rate 2020-08-20 14:56:00 78 /min [facility] Body temperature 2020-08-20 14:56:00 36.72 Yuki Univ ers[facility] Body weight 2020-08-20 14:56:00 124.376 kg [facility] Systolic blood 2020-05-20 16:05:00 129 mm[Hg] Univer [facility]ity of pressure [facility] Diastolic blood 2020-05-20 16:05:00 77 mm[Hg] Unive rsity of pressure [facility] Heart rate 2020-05-20 16:05:00 84 /min [facility] Body temperature 2020-05-20 16:05:00 36.72 Yuki [facility] Respiratory rate 2020-05-20 16:05:00 16 /min [facility] Body height 2020-05-20 16:05:00 172.7 cm [facility] Body weight 2020-05-20 16:05:00 107.559 kg [facility] BMI 2020-05-20 16:05:00 36.05 kg/m2 [facility] Systolic blood 2020-05-12 15:37:00 132 mm[Hg] Univer sity of pressure [facility] Diastolic blood 2020-05-12 15:37:00 88 mm[Hg] Unive rsity of pressure [facility] Heart rate 2020-05-12 15:37:00 84 /min [facility] Body temperature 2020-05-12 15:37:00 36.67 Yuki [facility] Respiratory rate 2020-05-12 15:37:00 16 /min [facility] Body height 2020-05-12 15:37:00 172.7 cm [facility] Body weight 2020-05-12 15:37:00 105.235 kg [facility] BMI 2020-05-12 15:37:00 35.28 kg/m2 [...] 2018-11-02 14:09:00 16 /min [facility] Body height 2018-11-02 14:09:00 172.7 cm [facility] Body weight 2018-11-02 14:09:00 102.513 kg [facility] BMI 2018-11-02 14:09:00 34.36 kg/m2 Shereen ty [facility] Systolic blood 2018-11-02 14:09:00 135 mm[Hg] [facility] 2018-11-02 14:09:00 83 mm[Hg] Castillo [facility] Procedures Procedure Date / Time Performing Clinician Source Performed NOTICE OF BILLING 2020-08-20 14:28:35 Doctor Shereen Purcell [facility] PRACTICES FOR MEDICARE [place]IENTS POCT TEST 2020-05-20 16:17:00 Milagros Bailey [facility] POCT TEST 2020-05-12 15:49:00 [facility] CONSENT/REFUSAL FOR 2020-05-12 14:40:28 Doctor Castillo Purcell [facility] DIAGNOSIS AND TREATMENT [place] [facility] POCT TEST 2018-11-08 14:05:[address] [facility] POCT TEST 2018-11-02 14:30:00 Veronica Walter [facility] POCT URINALYSIS W/O 2018-11-02 14:29:00 Veronica Walter [facility] SPECIFIC GRAVITY [facility] POCT URINALYSIS 2018-11-02 14:12:00 Veronica Walter [facility] NO SHOW OR MISSED 2018-11-02 13:56:35 Doctor Jazzy [facility] APPOINTMENT POLICY [place] [facility] h ACKNOWLEDGEMENT Encounters Start End Encounter Admission Attending Care Care Encounter Source Date/Time Date/Time Type Type Clinicians Facility Department ID 2020-04-13 Inpatient HCANW LUIZ [id number] [facility] 02:17:00 [id number] [facility] 2021-05-21 2021-05-21 Outpatient Carole BAILEY [facility] [id number] Univers 15:15:00 15:15:00 MILAGROS henry [facility] 2021-05-21 2021-05-21 Outpatient R PRISCILL[facility] [id number] Univers 13:15:00 13:15:00 YI [id number] ity o f [facility] 2021-05-21 2021-05-21 [facility] [id number] Univers 13:15:00 13:15:00 [place] ity o f [facility] 2020-08-20 2020-08-20 Nurse Visit, Ang-Rmchp Nurse [facility] 1.2 .840.114 [id number] Univers 09:25:21 09:56:10 Visit Yi Wells DESKTOP ARCHITECT 350.1.13. [address] [facility] 4.2.7.2.686 Ulises as MATERNAL [id number] [facility] ical & CHILD [address] [place] [address] 2020-08-20 2020-08-20 Outpatient R [facility] [id number] Univers 09:30:00 09:30:00 [id number] ity of [facility] 2020-08-20 2020-08-20 Outpatient R [facility] [id number] Univers 09:30:00 09:30:00 ity of [facility] 2020-08-20 2020-08-20 Orders Doctor KARISHMA [id number] [id number] Univers 00:00:00 00:00:00 Only Unassigned, ALEJANDRO 350.1.13.10 ity of [place] [facility] 4.2.7.2.686 Ulises as [id number] [facility] 00[address] [place] 2020-06-17 2020-06-17 Telephone Lynn [facility] 1.2.840.114 [id number] Univers 00:00:00 00:00:00 Milagros El DESKTOP ARCHITECT 350.1.13.[address] [facility] 4.2.7.2.686 [place] as MATERNAL [id number] [facility] ical & CHILD [address] [place] [address] 2020-06-10 2020-06-10 Patient Manny [facility] 1.2.840.114 [id number] Univers 00:00:00 00:00:00 Outreach Jimmy IRIZARRY 350.1.13.10 i ty of [facility] 4.2.7.2.686 [place] [id number] [place] [address] [place] 2020-05-20 2020-05-20 Outpatient R [facility] [id number] Univers 15:15:00 15:15:00 YI [id number] ity o f [facility] 2020-05-20 2020-05-20 Outpatient R [facility] [id number] Univers 15:15:00 15:15:00 [place] ity o f [facility] 2020-05-20 2020-05-20 [facility] [id number] Univers 09:44:02 10:44:43 Visit Milagros El DESKTOP ARCHITECT 350.1.13.10 it y of REGIONAL 4.2.7.2.686 [place] as MATERNAL [id number] [facility] & CHILD [address] [place] [address] 2020-05-20 2020-05-20 Outpatient R LYNN [facility] [id number] Univers 09:45:00 09:45:00 MILAGROS henry [facility] 2020-05-12 2020-05-12 [facility] 1.2 .840.114 [id number] Univers 09:15:42 09:40:19 Visit Yi Wells DESKTOP ARCHITECT 350.1.13. 10 ity of REGIONAL 4.2.7.2.686 [place] as MATERNAL [id number] [facility] & [address] 2020-05-12 2020-05-12 Fe Walter [facility] 1.2.840.114 [id number] Univers 09:00:00 09:30:00 Veronica Lam DESKTOP ARCHITECT 350.1.13.10 ity of Visit REGIONAL 4.2.7.2.686 [place] as MATERNAL [id number] [facility] ical & CHILD [address] [place] [address] 2020-05-12 2020-05-12 Outpatient Carole WALTER [facility] [id number] Univers 09:00:00 09:00:00 YOSEPHA [id number] ity o f [facility] 2020-05-12 2020-05-12 Outpatient Carole WAL[facility] [id number] Univers 09:00:00 09:00:00 VERONICA salesy o f [facility] 2020-05-12 2020-05-12 Orders Doctor KARISHMA 1.2.840.114 [id number] Univers 00:00:00 00:00:00 Only Unassigned, ALEJANDRO 350.1.13.10 ity of [place] [facility] 4.2.7.2.686 Ulises as [id number] [address] 2020-05-07 2020-05-07 Outpatient R [facility] [id number] Univers 13:30:00 13:30:00 [id number] ity [facility] 2020-05-07 2020-05-07 Outpatient R [facility] [id number] Univers 13:30:00 13:30:00 ity [facility] 2020-05-05 2020-05-05 [facility] [id number] Univers 14:00:00 14:00:00 ROGETEDDY henrrychrista o kassie [facility] 2020-05-05 2020-05-05 Outpatient R [facility] [id number] Univers 13:30:00 13:30:00 [id number] ity [facility] 2019-04-06 2019-04-[address] [id number] 00:22:00 00:22:00 2018-11-16 2018-11-16 Telephone [facility] 1.2.840.114 [id number] Univers 00:00:00 00:00:00 Yi Lyn DESKTOP ARCHITECT 350.1.13.10 ity [facility] 4.2.7.2.686 Ul[place] as MATERNAL [id number] Med ical & CHILD [address] [place] [address] 2018-11-16 2018-11-16 Telephone [facility] 1.2.840.114 [id number] 00:00:00 00:00:00 Yi Lyn DESKTOP ARCHITECT 350.1.13.10 REGIONAL 4.2.7.2.686 MATERNAL [id number] & CHILD [address] [place] [address] 2018-11-08 2018-11-08 Office [facility] [id number] Univers 08:41:58 09:34:25 Visit [facility] DESKTOP ARCHITECT 350.1.13.[address] [facility] 4.2.7.2.686 Uliess as MATERNAL [phone] [facility] & CHILD [address] [place] [address] 2018-11-08 2018-11-08 Office Priscilla [facility] [id number] 08:41:58 09:34:25 Visit [facility] DESKTOP ARCHITECT 350.1.13.10 [facility] 4.2.7.2.686 MATERNAL [id number] & CHILD [address] [place] [address] 2018-11-06 2018-11-06 Telephone Satya [facility] [id number] [facility] 00:00:00 00:00:00 Veronica Lam DESKTOP ARCHITECT 350.1.13.[address] [facility] 4.2.7.2.686 Ulises as MATERNAL [id number] [facility] & CHILD [address] [place] [address] 2018-11-02 2018-11-02 Nurse Visit, [facility] Nurse [facility] 1.2 .840.114 [id number] [facility] 08:58:48 09:18:43 Visit SatyaVeronica DESKTOP ARCHITECT 350.1.13.[address] [facility] 4.2.7.2.686 Ulises as MATERNAL [id number] [facility] & CHILD [address] [place] [address] 2018-11-02 2018-11-02 Orders Doctor KARISHMA 1.2.840.114 [id number] Univers 00:00:00 00:00:00 Only Unassigned, ALEJANDRO 350.1.13.10 ity of [place] [facility] 4.2.7.2.686 [place] as [id number] [address] 2018-10-07 2018-10-07 Emergency E [id number] [facility] 12:29:00 12:29:00 2018-09-09 2018-09-09 Emergency E [facility] [...] PREG TEST DATE (test code = 3576) [id number] 16:17:00 Test Item Value Reference Range Interpretation Comments POCT PREG (test code = 1605) Negative On board controls acceptable with C Yes Line (test code = 3574) POCT PREG LOT # (test code = 3575) POCT PREG TEST DATE (test code = 3576) [facility] [id number] 15:49:00 Test Item Value Reference Range Interpretation Comments POCT PREG (test code = 1605) Negative On board controls acceptable with C Yes Line (test code = 3574) POCT PREG LOT # (test code = 3575) POCT PREG TEST DATE (test code = 3576) [facility]- [facility] CHEST 1 [id number] 03:20:00 [facility] : 2000 Sex: FPatient Name: ROSALES TUCKER Unit No: [id number] EXAMS: CPT: [id number] XR CHEST 1 V 38022 CHEST 1 VIEWCLINICAL HISTORY: Palpitations COMPARISON: None. A single frontal view of the chest is submitted. FINDINGS: The cardiac silhouette is normal in size. Vascularity appears normal. The lungs are clear. Nopleural effusion or pneumothorax is seen. No osseous abnormalities are seen. IMPRESSION: Negative chest radiograph. at 0320 Reported and signed by: Amol Feliciano MD CC: Technologist: Minesh P. Fluoro Time: DAP (Gy m2): Air Kerma (mGy): Trscr Dt/Tm: 04/13/2020 (0320) by:[email or web address] Orig Print D/T: S: 04/13/2020 (0323) BATCH NO: N/A Name: ROSALES WILDER [facility] ED Phys: Fide Garcia FLOAT REMOVER [address] : 2000 Age: 20 Sex: F [place] [address] Loc: N.ERS Exam Date: 04/13/2020 Status: REG ER PH: FAX: PAGE 1 Signed Report COMPREHENSIVE METABOLIC [id number] 03:19:00 Test Item Value Reference Range Interpretation [...] 42-121 N PHOSPHATASE (test code = ALKP) [id number] 03:19:00 Test Item Value Reference Range Interpretation Comments TROPONIN-I (test code = TROPI) <0.020 ng/mL 0.000-0.034 N CBC W/AUTO [id number] 02:59:00 Test Item Value Reference Range Interpretation [...] BA#) 0.0 x10 3/uL 0.0-0.1 N POCT [id number] 14:05:00 Test Item Value Reference Range Interpretation Comments POCT PREG (test code = 1605) Negative On board controls acceptable with C Yes Line (test code = 3574) POCT PREG LOT # (test code = 3575) POCT PREG TEST DATE (test code = 3576) [facility] [id number] 14:05:00 Test Item Value Reference Range Interpretation Comments POCT PREG (test code = 1605) Negative On board controls acceptable with C Yes Line (test code = 3574) POCT PREG LOT # (test code = 3575) POCT PREG TEST DATE (test code = 3576) [id number] 23:29:00 Test Item Value Reference Range Interpretation Comments HCG SERUM (test <1 INTERPRETATI ON:VALUES BETWEEN code = HCG) 15-20 milliInte rnational units/mL NEED T O BERETESTED WITHIN 48 HOURS . All units for these ranges ar e in milliInternatio nalunits/mL0-1 WK AFTER CONCEP TION 0-50 1-2 WKS AFTER CHIRAG PTION 40-3002-3 WKS AFTER CHIRAG PTION 100-1,0003-4 WK S AFTER CONCEPTION 500- 6,0001-2 MONTHS AFTER CONCEPTIO N 5,000-200,0002- 3 MONTHS AFTER CONCEPTION 10,0 00-100,0002ND TRIMESTER 3,000 -50,0003RD TRIMESTER 1,000 -50,000 SPECIMENS WITH AN HCG LEVEL FROM 0-6 milliInternatio nalunits/mL SHOULD BE CONSI DERED NEGATIVE UA RFLX MICR CULT IF [id number] 22:28:00 Test Item Value Reference Range Interpretation [...] Indication for culture: Dysuria/FrequencyPOCT URINALYSIS W/O SPECIFIC GRAVITY 2018-11-02 14:30:00 Test Item Value Reference Range Interpretation [...] code = 3257) . Negative - Negative [facility] [id number] 14:30:00 Test Item Value Reference Range Interpretation Comments POCT PREG (test code = 1605) Negative On board controls acceptable with C Yes Line (test code = 3574) POCT PREG LOT # (test code = 3575) POCT PREG TEST DATE (test code = 3576) [facility] URINALYSIS W SPECIFIC [id number] 14:13:00 Test Item Value Reference Range Interpretation [...] POCT U BLD (test code = 3257) Blood Negative - Negative POCT U COLOR (test code = 3266) POCT U APPEAR (test code = 3267) [facility]
--- NOTE | 2021-11-09 13:07 | ER ---
Nurse's Notes [facility] Name: Niurka Alatorre Age: 21 yrs Sex: Female : 2000 Arrival Date: 11/09/2021 Time: 12:52 Bed Waiting Private MD: Diagnosis: Cutaneous abscess of left axilla Presentation: 11/09 12:57 Chief complaint: Patient states: Pt reports that she can feel lumps underneath both of kb3 her armpits that are uncomfortable when she lays on her side at night x1 week. States no pain when upright. No wounds or drainage noted from lumps. Coronavirus screen: Vaccine status: Patient reports being unvaccinated. Client denies travel out of the [place] in the last 14 days. At this time, the client does not indicate any symptoms associated with coronavirus-19. Ebola Screen: Patient negative for fever greater than or equal to 101.5 degrees Fahrenheit, and additional compatible Ebola Virus Disease symptoms Patient denies exposure to infectious person. Patient denies travel to an Ebola-affected area in the 21 days before illness onset. No symptoms or risks identified at this time. Initial Sepsis Screen: Does the patient meet any 2 criteria? No. Patient's initial sepsis screen is negative. Does the patient have a suspected source of infection? No. Patient's initial sepsis screen is negative. Risk Assessment: Do you want to hurt yourself or someone else? Patient reports no desire to harm self or others. Onset of symptoms was November 02, 2021. 12:57 Method Of Arrival: Ambulatory kb3 12:57 Acuity: ONEAL 4 kb3 Triage Assessment: 13:03 General: Appears in no apparent distress. comfortable, Behavior is calm, cooperative. kb3 Pain: Complains of pain in left axilla Pain does not radiate. Pain at worst was 7 out of 10 on a pain scale. Derm: Skin is normal, pink, Skin temperature is warm Abscess located on left axilla is dime sized. 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 Last tetanus immunization: unknown. - Social history:: Smoking status: Patient denies any tobacco usage or history of. Patient/guardian denies using alcohol, street drugs. Screenin:19 Abuse screen: Denies threats or abuse. Denies injuries from another. Nutritional kb3 screening: No deficits noted. Tuberculosis screening: No symptoms or risk factors identified. Fall Risk None identified. Assessment: 13:19 General: See triage note. kb3 Vital Signs: 12:57 BP 133 / 69; Pulse 74; Resp 18; Temp 97.5; Pulse Ox 100% ; Weight 132.9 kg; Height 5 kb3 ft. 9 in. (175.26 cm); Pain 7/10; 12:57 Body Mass Index 43.27 (132.90 kg, 175.26 cm) kb3 ED Course: 12:52 Patient arrived in ED. rg4 13:01 Triage completed. kb3 13:01 Kenya Sewell FNP-C is [facility]. kb 13:01 Eddie Will MD is Attending Physician. kb 13:03 Arm band placed on right wrist. kb3 13:18 Ashley Benedict, RN is Primary Nurse. kb3 13:19 Patient has correct armband on for positive identification. kb3 13:19 No provider procedures requiring assistance completed. Patient did not have IV access kb3 during this emergency room visit. Administered Medications: No medications were administered Medication: 13:19 VIS not applicable for this client. kb3 Outcome: 13:07 Discharge ordered by . kb 13:19 Discharged to home kb3 13:19 Condition: good 13:19 Discharge instructions given to patient, Instructed on discharge instructions, follow up and referral plans. medication usage, Demonstrated understanding of instructions, follow-up care, medications. 13:20 Patient left the ED. kb3 Signatures: Kenya Sewell FNP-C FNP-Kasia Posey rg4 Ashley Benedict, RN RN kb3
--- NOTE | 2021-11-09 13:07 | EDPHYS ---
Physician Documentation [facility] Name: Niurka Alatorre Age: 21 yrs Sex: Female : 2000 Arrival Date: 11/09/2021 Time: 12:52 Bed Waiting Private MD: ED Physician Eddie Will HPI: 11/09 16:29 This 21 yrs old Black Female presents to ER via Ambulatory with complaints of Lump kb Under Arm. 16:29 The patient presents with an abscess of the left axilla. Description: swollen. Onset: kb The symptoms/episode began/occurred 1 week(s) ago. Possible cause(s): unknown. Associated signs and symptoms: The patient has no apparent associated signs or symptoms. Modifying factors: the symptoms are alleviated by nothing, the symptoms are aggravated by pressure, touching. Severity of symptoms: At their worst the symptoms were mild, in the emergency department the symptoms are unchanged. The patient has not experienced similar symptoms in the past. The patient has not recently seen a physician. Patient reports lump under left armpit started about a week ago. States she has discomfort to area when trying to lie on that side at night. Denies fever.. 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 Last tetanus immunization: unknown. - Social history:: Smoking status: Patient denies any tobacco usage or history of. Patient/guardian denies using alcohol, street drugs. ROS: 16:28 Constitutional: Negative for fever, chills, and weight loss. kb 16:28 Skin: Positive for abscess, of the left axilla. 16:28 All other systems are negative. Exam: 16:28 Constitutional: This is a well developed, well nourished patient who is awake, alert, kb and in no acute distress. Head/Face: Normocephalic, atraumatic. ENT: Moist Mucous membranes Cardiovascular: Regular rate and rhythm with a normal S1 and S2. No gallops, murmurs, or rubs. No pulse deficits. Respiratory: Respirations even and unlabored. No increased work of breathing. Talking in full sentences MS/ Extremity: Pulses equal, no cyanosis. Neurovascular intact. Full, normal range of motion. Neuro: Awake and alert, GCS 15, oriented to person, place, time, and situation. Moves all extremities. Normal gait. Psych: Awake, alert, with orientation to person, place and time. Behavior, mood, and affect are within normal limits. 16:28 Skin: abscess, that is small, of the left axilla. Vital Signs: 12:57 BP 133 / 69; Pulse 74; Resp 18; Temp 97.5; Pulse Ox 100% ; Weight 132.9 kg; Height 5 kb3 ft. 9 in. (175.26 cm); Pain 7/10; 12:57 Body Mass Index 43.27 (132.90 kg, 175.26 cm) kb3 MDM: 13:02 Patient medically screened. kb 16:26 Data reviewed: vital signs, nurses notes. Data interpreted: Pulse oximetry: on room air kb is 100 %. Interpretation: normal. Counseling: I had a detailed discussion with the patient and/or guardian regarding: the historical points, exam findings, and any diagnostic results supporting the discharge/admit diagnosis, the need for outpatient follow up, a family practitioner, to return to the emergency department if symptoms worsen or persist or if there are any questions or concerns that arise at home. Administered Medications: No medications were administered Disposition: 16:38 Co-signature as Attending Physician, Eddie Will MD. rn Disposition Summary: 11/09/21 13:07 Discharge Ordered Location: Home kb Condition: Stable kb Diagnosis - Cutaneous abscess of left axilla kb Followup: kb - With: Emergency Department - When: As needed - Reason: Worsening of condition Followup: kb - With: Private Physician - When: 2 - 3 days - Reason: Recheck today's complaints, Continuance of care, Re-evaluation by your physician Discharge Instructions: - Discharge Summary Sheet kb - Skin Abscess, [id number] kb Forms: - Medication Reconciliation Form kb - Thank You Letter kb - Antibiotic Education kb - Prescription Opioid Use kb Prescriptions: - Cephalexin 500 mg Oral Capsule - take 1 capsule by ORAL route every 8 hours for 10 days; 30 capsule; Refills: 0, kb Product Selection Permitted Signatures: Kenya Sewell, SAMPLE CUTTER-C SAMPLE CUTTER-Ckb Eddie Will MD MD rn Bradberry, Kelly, RN RN kb3
[2021-11-09 14:01] VITALS: BP 133/69; TEMP 97.5; O2SAT 100
== END 2021-11-09 13:20 | disposition home or self-care (01) ==
LOC: ER 12:49
PROC: 0H9CXZZ Drainage of Left Upper Arm Skin, External Approach (ICD-10-PCS; principal; 2021-11-09)
DX: O99.713 Diseases of the skin and subcutaneous tissue complicating pregnancy, third trimester (principal); L02.412 Cutaneous abscess of left axilla; Z3A.28 28 weeks gestation of pregnancy
CPT/HCPCS: 99281

== ENCOUNTER 2022-01-09 14:42 | Emergency (ER) | payer OTHER ==
--- OUTSIDE RECORDS SUMMARY | 2022-01-09 14:49 | XMS REPORT | Continuity of Care Document ---
:2000 Author Organization [facility] t Address [address] [place] [address] Care Team Providers Name Role Phone YI WELLS Primary Care Physician Unavailable MILAGROS BAILEY Attending Clinician Unavailable YI WELLS Attending Clinician Unavailable Visit, Ilia-chjose roberto Nurse Attending Clinician Unavailable Yi Gaston Attending Clinician [phone] Doctor Unassigned, [place] Attending Clinician Unavailable Milagros Denis Attending Clinician Jimmy Bryant DO Attending Clinician Veronica Clement Attending Clinician VERONICA WALTER Attending Clinician Unavailable Payers Payer Name Policy Type Policy Number Effective Date Expiration Date Jovi menjivar [facility] DUAL [id number] 2020 00:00:00 COMP HMO D SNP [facility] BREA STAR [id number] 2018 00:00:00 Problems Condition Condition Condition Status Onset Resolution Last Treating Co mments Source Name Details Category Date Date Treatment Clinician Date UTI UTI Disease Active Overview: Univer s (urinary (urinary 8-19 Treated ity o f tract tract 00:00: on [place] infection) infection) 00 11/06/2018 [facility] Chlamydia Chlamydia Disease Active Uni vers trachomati trachomati 2-07 it y of s s 00:00: [place] infection infection 00 [facility] Branch genitourin genitourin sofia sites sofia sites BMI BMI Disease Active 2018- Univers 33.0-33.9, 33.0-33.9, 2-06 it y of adult adult 00:00: [address] Branch No known No known Disease Unive rs active active ity of problems problems [facility] Allergies, Adverse Reactions, Alerts Allergy Allergy Status Severity Reaction(s) Onset Inactive Treating Comm ents Source Name Type Date Date Clinician No Known DA Active U [facility] 1-24 [place] 00:[facility]: [facility] 00 are [facility] No Known DA Active U [facility] Allergie 124 [place] 00:00: Health 00 are [facility] No Known DA Active U [facility]16 [facility] 00 [facility] NO KNOWN Drug Active Univers ALLERGIE Class ity of S [facility] Social History Social Habit Start Date Stop Date Quantity Comments Source Exposure to Not sure [facility] SARS-CoV-2 [facility] (event) Branch Tobacco use and 2020-08-20 2020-08-20 Never used Universit y of exposure 00:00:00 00:00:00 [facility] Alcohol intake 2020-08-20 2020-08-20 Current University of 00:00:00 00:00:00 non-drinker of [facility] alcohol Branch (finding) Sex Assigned At 2000 2000 Universit y of 00:00:00 00:00:00 [facility] Smoking Status Start Date Stop Date Source Never smoker [facility] Medications Ordered Filled Start Stop Current Ordering Indication Dosage Frequency Signature Comments Components Source Medication Medication Date Date Medication? Clinician (SIG) Name Name LOESTRIN FE Yes [id number] 1{tbl} Take 1 Univers (MICROGESTI 6-02 tablet by itMila FE 04/09) 00:00: mouth [place] 1 mg-20 mcg 00 daily. Medica l (21)/75 mg Branch (7) tablet LOESTRIN FE Yes [id number] 1{tbl} Take 1 Univers (MICROGESTI 3-02 tablet by ity of N 04/09) 00:00: mouth [place] 1 mg-20 mcg 00 daily. Medica l (21)/75 mg Branch (7) tablet LOESTRIN FE 2020-0 Yes [id number] 1{tbl} Take 1 Univers (MICROGESTI 3-02 tablet by ity of N 04/09) 00:00: mouth [place] 1 mg-20 mcg 00 daily. Medica l (21)/75 mg Branch (7) tablet LOESTRIN FE 2020-0 Yes [id number] 1{tbl} Take 1 Univers (MICROGESTI 3-02 tablet by ity of N 04/09) 00:00: mouth [place] 1 mg-20 mcg 00 daily. Medica l (21)/75 mg Branch (7) tablet LOESTRIN FE 2020-0 Yes [id number] 1{tbl} Take 1 Univers (MICROGESTI 3-02 tablet by ity of N 04/09) 00:00: mouth [place] 1 mg-20 mcg 00 daily. Medica l (21)/75 mg Branch (7) tablet LOESTRIN FE 2020-0 Yes [id number] 1{tbl} Take 1 Univers (MICROGESTI 3-02 tablet by ity of N 04/09) 00:00: mouth [place] 1 mg-20 mcg 00 daily. Medica l (21)/75 mg Branch (7) tablet LOESTRIN FE 0 2020- No [id number] 1{tbl} Take 1 Univers (MICROGESTI 3-02 06-02 tablet by it y of [facility] 04/09) 00:00: 00:00 mouth [place] 1 mg-20 mcg 00 :00 daily. Medica l (21)/75 mg Branch (7) tablet Nitrofurant 2019- No [id number] 100mg Take 1 Univers oin&Nit. 8-19 08-30 capsule by ity of [place] 00:00: 04:59 mouth 2 [place] as (MACROBID) 00 :00 (two) Medical 100 mg times Branch capsule daily for 10 days. Nitrofurant 2019- No [id number] 100mg Take 1 Univers oin&Nit. 8-19 08-30 capsule by ity of [place] 00:00: 04:59 mouth 2 [place] as (MACROBID) 00 :00 (two) Medical 100 mg times Branch capsule daily for 10 days. Nitrofurant 2019- No [id number] 100mg Take 1 Univers oin&Nit. 11-06 capsule by ity of [place] 00:00: 04:59 mouth 2 [place] as (MACROBID) 00 :00 (two) Medical 100 mg times Branch capsule daily for 10 days. Nitrofurant 2018- No [id number] 100mg Take 1 Univers oin&Nit. 11-06 capsule by ity of [place] 00:00: 04:59 mouth 2 [place] as (MACROBID) 00 :00 (two) Medical 100 mg times Branch capsule daily for 10 days. Nitrofurant 2018- No [id number] 100mg Take 1 Univers oin&Nit. 11-06 capsule by ity of [place] 00:00: 04:59 mouth 2 [place] as (MACROBID) 00 :00 (two) Medical 100 mg times Branch capsule daily for 10 days. No known No Univers medications ity [facility] No known No [facility] No known No Univers medications ity [facility] No known No [facility] No known No Univers medications [facility] Immunizations Ordered Immunization Filled Immunization Date Status Commen ts Source Name Name Influenza Virus 2017-12-18 Completed Universit y of Vaccine 00:00:00 [facility] Influenza Virus 2017-12-18 Completed Universit y of Vaccine 00:00:00 [facility] Influenza Virus 2017-12-18 Completed Universit y of Vaccine 00:00:00 [facility] Influenza Virus 2017-12-18 Completed Universit y of Vaccine 00:00:00 [facility] Influenza Virus 2017-12-18 Completed Universit y of Vaccine 00:00:00 [facility] Influenza Virus 2017-12-18 Completed Universit y of Vaccine 00:00:00 [facility] Influenza Virus 2017-12-18 Completed Universit y of Vaccine 00:00:00 [facility] Influenza Virus 2017-12-18 Completed Universit y of Vaccine 00:00:00 [facility] Influenza Virus 2017-12-18 Completed Universit y of Vaccine 00:00:00 [facility] Influenza Virus 2017-12-18 Completed Universit y of Vaccine 00:00:00 [facility] Influenza Virus 2017-12-18 Completed Universit y of Vaccine 00:00:00 [facility] Influenza Virus 2017-12-18 Completed Universit y of Vaccine 00:00:00 [facility] Influenza Virus 2017-12-18 Completed Universit y of Vaccine 00:00:00 [facility] Influenza Virus 2017-12-18 Completed Universit y of Vaccine 00:00:00 [facility] Influenza Virus 2017-12-18 Completed Universit y of Vaccine 00:00:00 [facility] Influenza Virus 2017-12-18 Completed Universit y of Vaccine 00:00:00 [facility] HPV 2011-12-27 Completed University of 00:00:00 [facility] Influenza Virus 2011-12-27 Completed Universit y of Vaccine (3+ yrs) 00:00:00 [facility] [place] [facility] Meningococcal 2011-12-27 Completed University of Polysaccharide 00:00:00 [place] Medi elder (groups A, C, Y and Branc h W-135) conjugate vaccine (MCV4P) TDAP 2011-12-27 Completed University of 00:00:00 [facility] HPV 2011-12-27 Completed University of 00:00:00 [facility] Influenza Virus 2011-12-27 Completed Universit y of Vaccine (3+ yrs) 00:00:00 [facility] [place] [facility] Meningococcal 2011-12-27 Completed University of Polysaccharide 00:00:00 [place] [facility] elder (groups A, C, Y and Branc h W-135) conjugate vaccine (MCV4P) TDAP 2011-12-27 Completed University of 00:00:00 [facility] HPV 2011-12-27 Completed University of 00:00:00 [facility] Influenza Virus 2011-12-27 Completed Universit y of Vaccine (3+ yrs) 00:00:00 [facility] [place] [facility] Meningococcal 2011-12-27 Completed University of Polysaccharide 00:00:00 [place] [facility] elder (groups A, C, Y and Branc h W-135) conjugate vaccine (MCV4P) TDAP 2011-12-27 Completed University of 00:00:00 [facility] HPV 2011-12-27 Completed University of 00:00:00 [facility] Influenza Virus 2011-12-27 Completed Universit y of Vaccine (3+ yrs) 00:00:00 [facility] [place] [facility] Meningococcal 2011-12-27 Completed University of Polysaccharide 00:00:00 [place] [facility] elder (groups A, C, Y and Branc h W-135) conjugate vaccine (MCV4P) TDAP 2011-12-27 Completed University of 00:00:00 [facility] HPV 2011-12-27 Completed University of 00:00:00 [facility] Influenza Virus 2011-12-27 Completed Universit y of Vaccine (3+ yrs) 00:00:00 [facility] [place] [facility] Meningococcal 2011-12-27 Completed University of Polysaccharide 00:00:00 [place] [facility] elder (groups A, C, Y and Branc h W-135) conjugate vaccine (MCV4P) TDAP 2011-12-27 Completed University of 00:00:00 [facility] HPV 2011-12-27 Completed University of 00:00:00 [facility] Influenza Virus 2011-12-27 Completed Universit y of Vaccine (3+ yrs) 00:00:00 [facility] [place] [facility] Meningococcal 2011-12-27 Completed University of Polysaccharide 00:00:00 [place] [facility] elder (groups A, C, Y and Branc h W-135) conjugate vaccine (MCV4P) TDAP 2011-12-27 Completed University of 00:00:00 [facility] HPV 2011-12-27 Completed University of 00:00:00 [facility] Influenza Virus 2011-12-27 Completed Universit y of Vaccine (3+ yrs) 00:00:00 [facility] [place] [facility] Meningococcal 2011-12-27 Completed University of Polysaccharide 00:00:00 [place] [facility] elder (groups A, C, Y and Branc h W-135) conjugate vaccine (MCV4P) TDAP 2011-12-27 Completed University of 00:00:00 [facility] HPV 2011-12-27 Completed University of 00:00:00 [facility] Influenza Virus 2011-12-27 Completed Universit y of Vaccine (3+ yrs) 00:00:00 [facility] [place] [facility] Meningococcal 2011-12-27 Completed University of Polysaccharide 00:00:00 [place] [facility] elder (groups A, C, Y and Branc h W-135) conjugate vaccine (MCV4P) TDAP 2011-12-27 Completed University of 00:00:00 [facility] HPV 2011-12-27 Completed University of 00:00:00 [facility] Influenza Virus 2011-12-27 Completed Universit y of Vaccine (3+ yrs) 00:00:00 [place] Me dical Branch Meningococcal 2011-12-27 Completed University of Polysaccharide 00:00:00 [facility] elder (groups A, C, Y and Branc h W-135) conjugate vaccine (MCV4P) TDAP 2011-12-27 Completed University of 00:00:00 [facility] Varicella 2007-02-23 Completed University of (varivax)(chicken 00:00:00 [...] HEPATITIS A 2007-01-09 Completed University of 00:00:00 [facility] HEPATITIS A 2007-01-09 Completed University of 00:00:00 [facility] HEPATITIS A 2007-01-09 Completed University of 00:00:00 [facility] HEPATITIS A 2007-01-09 Completed University of 00:00:00 [facility] HEPATITIS A 2007-01-09 Completed University of 00:00:00 [facility] HEPATITIS A 2007-01-09 Completed University of 00:00:00 [facility] Varicella 2007-01-09 Completed University of (varivax)(chicken 00:00:00 [place] M edical pox) Branch HEPATITIS A 2007-01-09 Completed University of 00:00:00 [facility] Varicella 2007-01-09 Completed University of (varivax)(chicken 00:00:00 [place] [facility] pox) Branch HEPATITIS A 2007-01-09 Completed University of 00:00:00 [facility] Varicella 2007-01-09 Completed University of (varivax)(chicken 00:00:00 [place] [facility] pox) Branch HEPATITIS A 2007-01-09 Completed University of 00:00:00 [facility] Varicella 2007-01-09 Completed University of (varivax)(chicken 00:00:00 [place] M [facility]ical pox) Branch HEPATITIS A 2007-01-09 Completed University of 00:00:00 [facility] Varicella 2007-01-09 Completed University of (varivax)(chicken 00:00:00 [place] [facility] pox) Branch HEPATITIS A 2007-01-09 Completed University of 00:00:00 [facility] Varicella 2007-01-09 Completed University of (varivax)(chicken 00:00:00 [place] [facility] pox) Branch HEPATITIS A 2007-01-09 Completed University of 00:00:00 [facility] Varicella 2007-01-09 Completed University of (varivax)(chicken 00:00:00 [place] [facility] pox) Branch HEPATITIS A 2007-01-09 Completed University of 00:00:00 [facility] Varicella 2007-01-09 Completed University of (varivax)(chicken 00:00:00 [place] M [facility] pox) Branch HEPATITIS A 2007-01-09 Completed University of 00:00:00 [facility] Branch Varicella 2007-01-09 Completed University of (varivax)(chicken 00:00:[address] [facility] edical pox) Branch HEPATITIS A 2007-01-09 Completed University of 00:00:00 [place] [facility] HEPATITIS A 2007-01-09 Completed University of 00:00:00 [facility] Branch HEPATITIS A 2006-03-23 Completed University of 00:00:00 [facility] Branch HEPATITIS A 2006-03-23 Completed University of 00:00:00 [facility] Branch HEPATITIS A 2006-03-23 Completed University of 00:00:00 [facility] Branch HEPATITIS A 2006-03-23 Completed University of 00:00:00 [facility] Branch HEPATITIS A 2006-03-23 Completed University of 00:00:00 [facility] Branch HEPATITIS A 2006-03-23 Completed University of 00:00:00 [facility] Branch HEPATITIS A 2006-03-23 Completed University of 00:00:00 [facility] HEPATITIS A 2006-03-23 Completed University of 00:00:00 [facility] HEPATITIS A 2006-03-23 Completed University of 00:00:00 [facility] Branch DTAP 2005-03-23 Completed University of 00:00:00 [facility] IPV 2005-03-23 Completed University of 00:00:00 [facility] MMR 2005-03-23 Completed University of 00:00:00 [facility] HEPATITIS A 2005-03-23 Completed University of 00:00:00 [facility] Branch DTAP 2005-03-23 Completed University of 00:00:00 [facility] Branch IPV 2005-03-23 Completed University of 00:00:00 [facility] Branch MMR 2005-03-23 Completed University of 00:00:00 [facility] HEPATITIS A 2005-03-23 Completed University of 00:00:00 [facility] Branch DTAP 2005-03-23 Completed University of 00:00:00 [facility] Branch IPV 2005-03-23 Completed University of 00:00:00 [facility] Branch MMR 2005-03-23 Completed University of 00:00:00 [facility] Branch HEPATITIS A 2005-03-23 Completed University of 00:00:00 [facility] Branch DTAP 2005-03-23 Completed University of 00:00:00 [facility] Branch IPV 2005-03-23 Completed University of 00:00:00 [facility] Branch MMR 2005-03-23 Completed University of 00:00:00 [facility] HEPATITIS A 2005-03-23 Completed University of 00:00:00 [place] [facility] DTAP 2005-03-23 Completed University of 00:00:00 [place] [facility] IPV 2005-03-23 Completed University of 00:00:00 [place] [facility] MMR 2005-03-23 Completed University of 00:00:00 [facility] Branch HEPATITIS A 2005-03-23 Completed University of 00:00:00 [place] [facility] DTAP 2005-03-23 Completed University of 00:00:00 [place] [facility] IPV 2005-03-23 Completed University of 00:00:00 [place] [facility] MMR 2005-03-23 Completed University of 00:00:00 [facility] Branch HEPATITIS A 2005-03-23 Completed University of 00:00:00 [place] [facility] DTAP 2005-03-23 Completed University of 00:00:00 [place] [facility] IPV 2005-03-23 Completed University of 00:00:00 [place] [facility] MMR 2005-03-23 Completed University of 00:00:00 [facility] Branch HEPATITIS A 2005-03-23 Completed University of 00:00:00 [place] [facility] DTAP 2005-03-23 Completed University of 00:00:00 [place] [facility] IPV 2005-03-23 Completed University of 00:00:00 [place] [facility] MMR 2005-03-23 Completed University of 00:00:00 [facility] Branch HEPATITIS A 2005-03-23 Completed University of 00:00:00 [place] [facility] DTAP 2005-03-23 Completed University of 00:00:00 [facility] Branch IPV 2005-03-23 Completed University of 00:00:00 [place] [facility] MMR 2005-03-23 Completed University of 00:00:00 [facility] Branch HEPATITIS A 2005-03-23 Completed University of 00:00:00 [place] [facility] DTAP 2002-03-28 Completed University of 00:00:00 [place] [facility] IPV 2002-03-28 Completed University of 00:00:00 [facility] Branch MMR 2002-03-28 Completed University of 00:00:00 [facility] Branch Varicella 2002-03-28 Completed University of (varivax)(chicken 00:00:00 [place] M edical pox) Branch Heamophilus Influenza 2002-03-28 Completed Uni versity of B 00:00:00 [facility] Branch DTAP 2002-03-28 Completed University of 00:00:00 [place] [facility] IPV 2002-03-28 Completed University of 00:00:00 [facility] MMR 2002-03-28 Completed University of 00:00:00 [facility] Varicella 2002-03-28 Completed University of (varivax)(chicken 00:00:00 [place] [facility] pox) Branch Heamophilus Influenza 2002-03-28 Completed Uni versity of B 00:00:00 [facility] DTAP 2002-03-28 Completed University of 00:00:00 [facility] IPV 2002-03-28 Completed University of 00:00:00 [facility] MMR 2002-03-28 Completed University of 00:00:00 [facility] Varicella 2002-03-28 Completed University of (varivax)(chicken 00:00:00 [place] [facility] pox) Branch Heamophilus Influenza 2002-03-28 Completed Uni versity of B 00:00:00 [facility] DTAP 2002-03-28 Completed University of 00:00:00 [facility] IPV 2002-03-28 Completed University of 00:00:00 [facility] MMR 2002-03-28 Completed University of 00:00:00 [facility] Varicella 2002-03-28 Completed University of (varivax)(chicken 00:00:00 [place] [facility] edical pox) Branch Heamophilus Influenza 2002-03-28 Completed Uni versity of B 00:00:00 [facility] DTAP 2002-03-28 Completed University of 00:00:00 [facility] IPV 2002-03-28 Completed University of 00:00:00 [facility] MMR 2002-03-28 Completed University of 00:00:00 [facility] Varicella 2002-03-28 Completed University of (varivax)(chicken 00:00:00 [place] M edical pox) Branch Heamophilus Influenza 2002-03-28 Completed Uni versity of B 00:00:00 [facility] DTAP 2002-03-28 Completed University of 00:00:00 [facility] IPV 2002-03-28 Completed University of 00:00:00 [facility] MMR 2002-03-28 Completed University of 00:00:00 [facility] Varicella 2002-03-28 Completed University of (varivax)(chicken 00:00:00 [place] M edical pox) Branch Heamophilus Influenza 2002-03-28 Completed Uni versity of B 00:00:00 [facility] Branch DTAP 2002-03-28 Completed University of 00:00:00 [facility] IPV 2002-03-28 Completed University of 00:00:00 [facility] Branch MMR 2002-03-28 Completed University of 00:00:00 [facility] Branch Varicella 2002-03-28 Completed University of (varivax)(chicken 00:00:00 [place] M edical pox) Branch Heamophilus Influenza 2002-03-28 Completed Uni versity of B 00:00:00 [facility] Branch DTAP 2002-03-28 Completed University of 00:00:00 [facility] Branch IPV 2002-03-28 Completed University of 00:00:00 [facility] Branch MMR 2002-03-28 Completed University of 00:00:00 [facility] Branch Varicella 2002-03-28 Completed University of (varivax)(chicken 00:00:00 [place] M edical pox) Branch Heamophilus Influenza 2002-03-28 Completed Uni versity of B 00:00:00 [facility] DTAP 2002-03-28 Completed University of 00:00:00 [facility] IPV 2002-03-28 Completed University of 00:00:00 [facility] MMR 2002-03-28 Completed University of 00:00:00 [facility] Branch Varicella 2002-03-28 Completed University of (varivax)(chicken 00:00:00 [place] M edical pox) Branch Heamophilus Influenza 2002-03-28 Completed Uni versity of B 00:00:00 [facility] Hep B, Adol or Pedi 2002-01-19 Completed Unive rsity of Dosage 00:00:00 [facility] Hep B, Adol or Pedi 2002-01-19 Completed Unive rsity of Dosage 00:00:00 [facility] Branch Hep B, Adol or Pedi 2002-01-19 Completed Unive rsity of Dosage 00:00:00 [facility] Branch Hep B, Adol or Pedi 2002-01-19 Completed Unive rsity of Dosage 00:00:00 [facility] Branch Hep B, Adol or Pedi 2002-01-19 Completed Unive rsity of Dosage 00:00:00 [facility] Branch Hep B, Adol or Pedi 2002-01-19 Completed Unive rsity of Dosage 00:00:00 [facility] Branch Hep B, Adol or Pedi 2002-01-19 Completed Unive rsity of Dosage 00:00:00 [facility] Branch Hep B, Adol or Pedi 2002-01-19 Completed Unive rsity of Dosage 00:00:00 [place] [facility] Hep B, Adol or Pedi 2002-01-19 Completed Unive rsity of Dosage 00:00:00 [facility] Branch DTAP 2001-01-19 Completed University of 00:00:00 [facility] Branch Hep B, Adol or Pedi 2001-01-19 Completed Unive rsity of Dosage 00:00:00 [facility] Branch Heamophilus Influenza 2001-01-19 Completed Uni versity of B 00:00:00 [facility] Branch DTAP 2001-01-19 Completed University of 00:00:00 [facility] Branch Hep B, Adol or Pedi 2001-01-19 Completed Unive rsity of Dosage 00:00:00 [facility] Branch Heamophilus Influenza 2001-01-19 Completed Uni versity of B 00:00:00 [facility] DTAP 2001-01-19 Completed University of 00:00:00 [facility] Branch Hep B, Adol or Pedi 2001-01-19 Completed Unive rsity of Dosage 00:00:00 [facility] Branch Heamophilus Influenza 2001-01-19 Completed Uni versity of B 00:00:00 [facility] Branch DTAP 2001-01-19 Completed University of 00:00:00 [facility] Branch Hep B, Adol or Pedi 2001-01-19 Completed Unive rsity of Dosage 00:00:00 [facility] Branch Heamophilus Influenza 2001-01-19 Completed Uni versity of B 00:00:00 [facility] Branch DTAP 2001-01-19 Completed University of 00:00:00 [facility] Branch Hep B, Adol or Pedi 2001-01-19 Completed Unive rsity of Dosage 00:00:00 [facility] Branch Heamophilus Influenza 2001-01-19 Completed Uni versity of B 00:00:00 [facility] Branch DTAP 2001-01-19 Completed University of 00:00:00 [place] [facility] Hep B, Adol or Pedi 2001-01-19 Completed Unive rsity of Dosage 00:00:00 [facility] Branch Heamophilus Influenza 2001-01-19 Completed Uni versity of B 00:00:00 [facility] Branch DTAP 2001-01-19 Completed University of 00:00:00 [place] [facility] Hep B, Adol or Pedi 2001-01-19 Completed Unive rsity of Dosage 00:00:00 [facility] Branch Heamophilus Influenza 2001-01-19 Completed Uni versity of B 00:00:00 [facility] DTAP 2001-01-19 Completed University of 00:00:00 [facility] Hep B, Adol or Pedi 2001-01-19 Completed Unive rsity of Dosage 00:00:00 [facility] Heamophilus Influenza 2001-01-19 Completed Uni versity of B 00:00:00 [facility] DTAP 2001-01-19 Completed University of 00:00:00 [facility] Hep B, Adol or Pedi 2001-01-19 Completed Unive rsity of Dosage 00:00:00 [facility] Heamophilus Influenza 2001-01-19 Completed Uni versity of B 00:00:00 [facility] DTAP 2000 Completed University of 00:00:00 [facility] IPV 2000 Completed University of 00:00:00 [facility] Pneumococcal 7 2000 Completed University of Conjugate, PCV7 00:00:00 [place] [facility] Heamophilus Influenza 2000 Completed Uni versity of B 00:00:00 [facility] DTAP 2000 Completed University of 00:00:00 [facility] IPV 2000 Completed University of 00:00:00 [facility] Pneumococcal 7 2000 Completed University of Conjugate, PCV7 00:00:00 [place] [facility] Heamophilus Influenza 2000 Completed Uni versity of B 00:00:00 [facility] DTAP 2000 Completed University of 00:00:00 [facility] IPV 2000 Completed University of 00:00:00 [facility] Pneumococcal 7 2000 Completed University of Conjugate, PCV7 00:00:00 [place] [facility] Heamophilus Influenza 2000 Completed Uni versity of B 00:00:00 [facility] DTAP 2000 Completed University of 00:00:00 [facility] IPV 2000 Completed University of 00:00:00 [facility] Pneumococcal 7 2000 Completed University of Conjugate, PCV7 00:00:00 [place] [facility] Heamophilus Influenza 2000 Completed Uni versity of B 00:00:00 [facility] DTAP 2000 Completed University of 00:00:00 [facility] IPV 2000 Completed University of 00:00:00 [facility] Pneumococcal 7 2000 Completed University of Conjugate, PCV7 00:00:00 [place] [facility] Heamophilus Influenza 2000 Completed Uni versity of B 00:00:00 [facility] DTAP 2000 Completed University of 00:00:00 [facility] IPV 2000 Completed University of 00:00:00 [facility] Pneumococcal 7 2000 Completed University of Conjugate, PCV7 00:00:00 [place] [facility] Heamophilus Influenza 2000 Completed Uni versity of B 00:00:00 [facility] DTAP 2000 Completed University of 00:00:00 [facility] IPV 2000 Completed University of 00:00:00 [facility] Pneumococcal 7 2000 Completed University of Conjugate, PCV7 00:00:00 [place] [facility] Heamophilus Influenza 2000 Completed Uni versity of B 00:00:00 [facility] DTAP 2000 Completed University of 00:00:00 [facility] IPV 2000 Completed University of 00:00:00 [facility] Pneumococcal 7 2000 Completed University of Conjugate, PCV7 00:00:00 [place] [facility] Heamophilus Influenza 2000 Completed Uni versity of B 00:00:00 [facility] DTAP 2000 Completed University of 00:00:00 [facility] IPV 2000 Completed University of 00:00:00 [facility] Pneumococcal 7 2000 Completed University of Conjugate, PCV7 00:00:00 [facility] amophilus Influenza 2000 Completed Uni versity of B 00:00:00 [facility] DTAP 2000 Completed University of 00:00:00 [facility] Hep B, Adol or Pedi 2000 Completed Unive rsity of Dosage 00:00:00 [facility] IPV 2000 Completed University of 00:00:00 [facility] Heamophilus Influenza 2000 Completed Uni versity of B 00:00:00 [facility] DTAP 2000 Completed University of 00:00:00 [facility] Hep B, Adol or Pedi 2000 Completed Unive rsity of Dosage 00:00:00 [facility] IPV 2000 Completed University of 00:00:00 [facility] Heamophilus Influenza 2000 Completed Uni versity of B 00:00:00 [facility] DTAP 2000 Completed University of 00:00:00 [facility] Hep B, Adol or Pedi 2000 Completed Unive rsity of Dosage 00:00:00 [facility] IPV 2000 Completed University of 00:00:00 [facility] Heamophilus Influenza 2000 Completed Uni versity of B 00:00:00 [facility] DTAP 2000 Completed University of 00:00:00 [facility] Hep B, Adol or Pedi 2000 Completed Unive rsity of Dosage 00:00:00 [facility] IPV 2000 Completed University of 00:00:00 [facility] Heamophilus Influenza 2000 Completed Uni versity of B 00:00:00 [facility] DTAP 2000 Completed University of 00:00:00 [facility] Hep B, Adol or Pedi 2000 Completed Unive rsity of Dosage 00:00:00 [facility] IPV 2000 Completed University of 00:00:00 [facility] Heamophilus Influenza 2000 Completed Uni versity of B 00:00:00 [facility] DTAP 2000 Completed University of 00:00:00 [facility] Hep B, Adol or Pedi 2000 Completed Unive rsity of Dosage 00:00:00 [facility] IPV 2000 Completed University of 00:00:00 [facility] Heamophilus Influenza 2000 Completed Uni versity of B 00:00:00 [facility] DTAP 2000 Completed University of 00:00:00 [facility] Hep B, Adol or Pedi 2000 Completed Unive rsity of Dosage 00:00:00 [facility] IPV 2000 Completed University of 00:00:00 [facility] Heamophilus Influenza 2000 Completed Uni versity of B 00:00:00 [facility] DTAP 2000 Completed University of 00:00:00 [facility] Hep B, Adol or Pedi 2000 Completed Unive rsity of Dosage 00:00:00 [facility] IPV 2000 Completed University of 00:00:00 [facility] Heamophilus Influenza 2000 Completed Uni versity of B 00:00:00 [facility] DTAP 2000 Completed University of 00:00:00 [facility] Hep B, Adol or Pedi 2000 Completed Unive rsity of Dosage 00:00:00 [facility] IPV 2000 Completed University of 00:00:00 [facility] Heamophilus Influenza 2000 Completed Uni versity of B 00:00:00 [facility] Hep B, Adol or Pedi 2000 Completed Unive rsity of Dosage 00:00:00 [facility] Hep B, Adol or Pedi 2000 Completed Unive rsity of Dosage 00:00:00 [facility] Hep B, Adol or Pedi 2000 Completed Unive rsity of Dosage 00:00:00 [facility] Hep B, Adol or Pedi 2000 Completed Unive rsity of Dosage 00:00:00 [facility] Hep B, Adol or Pedi 2000 Completed Unive rsity of Dosage 00:00:00 [facility] Hep B, Adol or Pedi 2000 Completed Unive rsity of Dosage 00:00:00 [facility] Hep B, Adol or Pedi 2000 Completed Unive rsity of Dosage 00:00:00 [facility] Hep B, Adol or Pedi 2000 Completed Unive rsity of Dosage 00:00:00 [facility] Hep B, Adol or Pedi 2000 Completed Unive rsity of Dosage 00:00:00 [facility] Vital Signs Vital Name Observation Time Observation Value Comments Source Systolic blood 2020-08-20 14:56:00 125 mm[Hg] Univer sity of pressure [facility] Diastolic blood 2020-08-20 14:56:00 76 mm[Hg] Unive rsity of pressure [facility] Heart rate 2020-08-20 14:56:00 78 /min [facility] Body temperature 2020-08-20 14:56:00 36.72 Yuki Univ ers[facility] of [facility] Body weight 2020-08-20 14:56:00 124.376 kg [facility] Systolic blood 2020-05-20 16:05:00 129 mm[Hg] Univer sity of pressure [facility] Diastolic blood 2020-05-20 16:05:00 77 mm[Hg] Unive rsity of pressure [facility] Heart rate 2020-05-20 16:05:00 84 /min [facility] Body temperature 2020-05-20 16:05:00 36.72 Yuki [facility] Respiratory rate 2020-05-20 16:05:00 16 /min [facility] Body height 2020-05-20 16:05:00 172.7 cm [facility] Body weight 2020-05-20 16:05:00 107.559 kg [facility] BMI 2020-05-20 16:05:00 36.05 kg/m2 [facility] Systolic blood 2020-05-12 15:37:00 132 mm[Hg] Univer sity of pressure [facility] Diastolic blood 2020-05-12 15:37:00 88 mm[Hg] Unive rsity of pressure [facility] Heart rate 2020-05-12 15:37:00 84 /min [facility] Body temperature 2020-05-12 15:37:00 36.67 Yuki [facility] Respiratory rate 2020-05-12 15:37:00 16 /min [facility] Body height 2020-05-12 15:37:00 172.7 cm [facility] Body weight 2020-05-12 15:37:00 105.235 kg [facility] BMI 2020-05-12 15:37:00 35.28 kg/m2 [...] 2018-11-08 14:03:00 16 /min [facility] Body height 2018-11-08 14:03:00 172.7 [...] 2018-11-02 14:09:00 16 /min [facility] Body height 2018-11-02 14:09:00 172.7 cm [facility] Body weight 2018-11-02 14:09:00 102.513 kg [facility] BMI 2018-11-02 14:09:00 34.36 kg/m2 [facility] Systolic blood 2018-11-02 14:09:00 135 mm[Hg] [facility] Diastolic blood 2018-11-02 14:09:00 83 mm[Hg[facility] Procedures Procedure Date / Time Performing Clinician Source Performed NOTICE OF BILLING 2020-08-20 14:28:35 Doctor Jazzy, [facility] PRACTICES FOR MEDICARE [facility] POCT TEST 2020-05-20 16:17:00 [facility] POCT TEST 2020-05-12 15:49:00 Ver[facility] CONSENT/REFUSAL FOR 2020-05-12 14:40:28 [facility] DIAGNOSIS AND TREATMENT [place] [facility] POCT TEST 2018-11-08 14:05:00 Yi Wells [facility] POCT TEST 2018-11-02 14:30:00 Veronica Walter [facility] POCT URINALYSIS W/O 2018-11-02 14:29:[address] [facility] SPECIFIC GRAVITY [facility] POCT URINALYSIS 2018-11-02 14:12:00 Veronica Walter [facility] NO SHOW OR MISSED 2018-11-02 13:56:35 Doctor Jazzy [facility] APPOINTMENT POLICY [facility] h ACKNOWLEDGEMENT Encounters Start End Encounter Admission Attending Care Care Encounter Source Date/Time Date/Time Type Type Clinicians Facility Department ID 2020-04-13 Inpatient HCANW LUIZ [id number] [facility] 02:17:[address] [facility] 2021-05-21 2021-05-21 Outpatient R LYNN [facility] [id number] Univers 15:15:00 15:15:00 MILAGROS henry [facility] 2021-05-21 2021-05-21 Outpatient R PRISCILLA [facility] [id number] Univers 13:15:00 13:15:00 YI henry o f [facility] 2020-08-20 2020-08-20 Nurse Visit, Ang-Rmchp Nurse [facility] 1.2 .840.114 [id number] Univers 09:25:21 09:56:10 Visit Yi Wells SHORT ORDER FRY COOK 350.1.13. [address] [facility] 4.2.7.2.686 [place] as MATERNAL [id number] [facility] & CHILD [address] [place] [address] 2020-08-20 2020-08-20 Outpatient R [facility] [id number] Univers 09:30:00 09:30:00 ity of [facility] 2020-08-20 2020-08-20 Orders Doctor KARISHMA 1.2.840.114 [id number] Univers 00:00:00 00:00:00 Only Unassigned, ALEJANDRO 350.1.13.10 ity of [place] [facility] 4.2.7.2.686 [place] as [id number] [address] 2020-06-17 2020-06-17 [facility] 1.2.840.114 [id number] Univers 00:00:00 00:00:00 Milagros El SHORT ORDER FRY COOK 350.1.13.[address] [facility] 4.2.7.2.686 [place] as MATERNAL [id number] [facility] & CHILD [address] [place] [address] 2020-06-10 2020-06-10 Patient Manny [facility] 1.2.840.114 [id number] Univers 00:00:00 00:00:00 Outreach Jimmy IRIZARRY 350.1.13.10 i ty of [facility] 4.2.7.2.686 [place] [id number] [place] [address] 2020-05-20 2020-05-20 Outpatient R PRISCILLA [facility] [id number] Univers 15:15:00 15:15:00 YI henry o f [facility] 2020-05-20 2020-05-20 Office [facility] 1.2.433.491 [id number] Univers 09:44:02 10:44:43 Visit Milagros El SHORT ORDER FRY COOK 350.1.13.10 it y of REGIONAL 4.2.7.2.686 [place] MATERNAL [id number] [facility] ical & CHILD [address] [place] [address] 2020-05-20 2020-05-20 Outpatient R LYNN [facility] [id number] Univers 09:45:00 09:45:00 MILAGROS ity of [facility] 2020-05-12 2020-05-12 [facility] 1.2 .840.114 [id number] Univers 09:15:42 09:40:19 Visit Yi Wells SHORT ORDER FRY COOK 350.1.13. [address] [facility] 4.2.7.2.686 [place] MATERNAL [id number] Med ical & CHILD [address] [place] [address] 2020-05-12 2020-05-12 Fe Walter [facility] 1.2.840.114 [id number] Univers 09:00:00 09:30:00 Veronica Lam SHORT ORDER FRY COOK 350.1.13.10 ity of Visit REGIONAL 4.2.7.2.686 [place] as MATERNAL [id number] Med ical & CHILD [address] [place] [address] 2020-05-12 2020-05-12 Outpatient Carole WALTER [facility] [id number] Univers 09:00:00 09:00:00 VERONICA henry o kassie [facility] 2020-05-12 2020-05-12 Orders Doctor SCHWARZ 1.2.840.114 [id number] Univers 00:00:00 00:00:00 Only Unassigned, ALEJANDRO 350.1.13.10 ity of [place] [facility] 4.2.7.2.686 [place] as [id number] [address] 2020-05-07 2020-05-07 Outpatient R [facility] [id number] Univers 13:30:00 13:30:00 ity of [facility] 2020-05-05 2020-05-05 Outpatient R [facility] [id number] Univers 14:00:00 14:00:00 VERONICA henry o f [facility] 2019-04-06 2019-04-06 Emergency E [facility] [id number] [facility] 00:22:00 00:22:00 2018-11-16 2018-11-16 Telephone Boandres [facility] 1.2.840.114 [id number] Univers 00:00:00 00:00:00 Yi C SHORT ORDER FRY COOK 350.1.13.10 ity of REGIONAL 4.2.7.2.686 [place] as MATERNAL [id number] Med ical & CHILD [address] [place] [address] 2018-11-16 2018-11-16 Telephone Borodrick [facility] 1.2.840.114 [id number] 00:00:00 00:00:00 Yi C SHORT ORDER FRY COOK 350.1.13.10 REGIONAL 4.2.7.2.686 MATERNAL [id number] & CHILD [address] [place] [address] 2018-11-08 2018-11-08 Office Priscilla [facility] [id number] [facility] 08:41:58 09:34:25 Visit Yi C SHORT ORDER FRY COOK 350.1.13.10 ity of REGIONAL 4.2.7.2.686 [place] as MATERNAL [id number] Med ical & CHILD [address] [place] [address] 2018-11-08 2018-11-08 Office Borodrick [facility] 1.2.773.010 [id number] 08:41:58 09:34:25 Visit Yi C SHORT ORDER FRY COOK 350.1.13.10 REGIONAL 4.2.7.2.686 MATERNAL [id number] & CHILD [address] [place] [address] 2018-11-06 2018-11-06 Telephone Saba ILDEEPTHI [id number] Univers 00:00:00 00:00:00 Veronica R SHORT ORDER FRY COOK 350.1.13.10 ity of REGIONAL 4.2.7.2.686 [place] as MATERNAL [id number] Med ical & CHILD [address] [place] [address] 2018-11-02 2018-11-02 Nurse Visit, IliaRmchp Nurse [facility] 1.2 .840.114 [id number] [facility] 08:58:48 09:18:43 Visit Veronica Walter R SHORT ORDER FRY COOK 350.1.13.10 ity of REGIONAL 4.2.7.2.686 [place] as MATERNAL [id number] Med ical & CHILD [address] [place] [address] 2018-11-02 2018-11-02 Orders Doctor KARISHMA 1.2.840.114 [id number] Univers 00:00:00 00:00:00 Only Unassigned, ALEJANDRO 350.1.13.10 ity of [place] [facility] 4.2.7.2.686 [place] as [id number] [address] 2018-10-07 2018-10-07 Emergency E [facility]BL [facility] [...] PREG TEST DATE (test code = 3576) [id number] 16:17:00 Test Item Value Reference Range Interpretation Comments POCT PREG (test code = 1605) Negative On board controls acceptable with C Yes Line (test code = 3574) POCT PREG LOT # (test code = 3575) POCT PREG TEST DATE (test code = 3576) [facility] [id number] 15:49:00 Test Item Value Reference Range Interpretation Comments POCT PREG (test code = 1605) Negative On board controls acceptable with C Yes Line (test code = 3574) POCT PREG LOT # (test code = 3575) POCT PREG TEST DATE (test code = 3576) [facility]- XR CHEST 1 [id number] 03:20:00 [facility] DOB: 2000 Sex: FPatient Name: ROSALES TUCKER Unit No: [id number] EXAMS: CPT: [id number] XR CHEST 1 V 25972 CHEST 1 VIEW CLINICAL HISTORY: Palpitations COMPARISON: None. A single frontal view of the chest is submitted. FINDINGS: The cardiac silhouette is normal in size. Vascularity appears normal. The lungs are clear. No pleural effusion or pneumothorax is seen. No osseous abnormalities are seen. IMPRESSION: Negative c hest radiograph. at 0320 Reported and signed by: Amol Feliciano MD CC: Technologist: Minesh Diggs Time: DAP (Gy m2): Air Kerma (mGy): Trscr Dt/Tm: 04/13/2020 (319) by:[email or web address] Orig Print D/T: S: 04/13/2020 (0323) BATCH NO: N/A Name: ROSALES TUCKER [facility] Phys: Fide Garcia [facility] [address] : 2000 Age: 20 Sex: [place] [address] Loc: N.ERS Exam Date: 04/13/2020 Status: REGER PH: FAX: PAGE 1 Signed Report COMPREHENSIVE METABOLIC [id number] 03:19:00 Test Item Value Reference Range Interpretation [...] 42-121 N PHOSPHATASE (test code = ALKP) [id number] 03:19:00 Test Item Value Reference Range Interpretation Comments TROPONIN-I (test code = TROPI) <0.020 ng/mL 0.000-0.034 N CBC W/AUTO [id number] 02:59:00 Test Item Value Reference Range Interpretation [...] BA#) 0.0 x10 3/uL 0.0-0.1 N POCT [id number] 14:05:00 Test Item Value Reference Range Interpretation Comments POCT PREG (test code = 1605) Negative On board controls acceptable with C Yes Line (test code = 3574) POCT PREG LOT # (test code = 3575) POCT PREG TEST DATE (test code = 3576) [facility] [id number] 14:05:00 Test Item Value Reference Range Interpretation Comments POCT PREG (test code = 1605) Negative On board controls acceptable with C Yes Line (test code = 3574) POCT PREG LOT # (test code = 3575) POCT PREG TEST DATE (test code = 3576) [facility] [id number] 23:29:00 Test Item Value Reference Range Interpretation [...] DERED NEGATIVE UA RFLX MICR CULT IF [id number] 22:28:00 Test Item Value Reference Range Interpretation [...] code = 3257) . Negative - Negative [facility] [id number] 14:30:00 Test Item Value Reference Range Interpretation Comments POCT PREG (test code = 1605) Negative On board controls acceptable with C Yes Line (test code = 3574) POCT PREG LOT # (test code = 3575) POCT PREG TEST DATE (test code = 3576) [facility] W SPECIFIC [id number] 14:13:00 Test Item Value Reference Range Interpretation [...] POCT U APPEAR (test code = 3267) [facility]
[2022-01-09 15:56] LABS: Absolute Lymphocytes (CBC) 3.8 K/uL (0.7-4.9); Hematocrit 36.2 % (36.0-45.0); Lymphocytes % 55.3 % (15.3-44.8); MCV 86.1 fL (80-100); MPV 9.4 fL (7.6-11.3); RBC Red Blood Cell Count 4.21 M/uL (3.86-4.86)
--- NOTE | 2022-01-09 15:56 | RAD REPORT ---
EXAM DESCRIPTION: [place] Single View01/09/2022 3:49 pm CLINICAL HISTORY: Palpitation COMPARISON: March 2021 FINDINGS: The lungs appear clear of acute infiltrate. The heart is normal size IMPRESSION: No acute abnormalities displayed
[2022-01-09 16:52] LABS: Potassium 3.8 mmol/L (3.5-5.1)
[2022-01-09 16:56] LABS: Troponin High Sensitivity 4.7 pg/mL (<58.9)
--- NOTE | 2022-01-09 17:19 | ER ---
Nurse's Notes [facility] Name: Niurka Alatorre Age: 21 yrs Sex: Female : 2000 Arrival Date: 01/09/2022 Time: 14:45 Bed 8 Private MD: Diagnosis: Palpitations Presentation: 01/09 14:49 Chief complaint: Intermittent palpitations and SOB x 1 month. Last episode was last hb night. Coronavirus screen: At this time, the client does not indicate any symptoms associated with coronavirus-19. Ebola Screen: No symptoms or risks identified at this time. Onset of symptoms was January 09, 2022. 14:49 Method Of Arrival: Ambulatory hb 14:49 Acuity: ONEAL 3 hb 15:51 Initial Sepsis Screen: Does the patient meet any 2 criteria? No. Patient's initial ph sepsis screen is negative. Does the patient have a suspected source of infection? No. Patient's initial sepsis screen is negative. Risk Assessment: Do you want to hurt yourself or someone else? Patient reports no desire to harm self or others. CAR DETAILER: 15:51 Verified ph Historical: - Allergies: 14:51 No Known Allergies; hb - Immunization history:: Adult Immunizations up to date. - Social history:: Smoking status: Patient denies any tobacco usage or history of. Screenin:50 Abuse screen: Denies threats or abuse. Denies injuries from another. Nutritional ph screening: No deficits noted. Fall Risk None identified. 15:51 Tuberculosis screening: No symptoms or risk factors identified. ph Assessment: 15:52 General: Appears in no apparent distress. comfortable, well groomed, Behavior is calm, ph cooperative, appropriate for age, Denies fever, feeling ill. 15:52 Pain: Denies pain. Neuro: Level of Consciousness is awake, alert, obeys commands, ph Oriented to person, place, time, situation. Cardiovascular: Reports palpitations, shortness of breath, both intermittent. Respiratory: Reports shortness of breath that is intermittent Airway is patent Respiratory effort is even, unlabored, Respiratory pattern is regular, symmetrical. Derm: Skin is intact, is healthy with good turgor, Skin is pink, warm \T\ dry. Musculoskeletal: Circulation, motion, and sensation intact. Range of motion: intact in all extremities. 17:43 Reassessment: Patient appears in no apparent distress at this time. Patient and/or ph family updated on plan of care and expected duration. Pain level reassessed. Patient is alert, oriented x 3, equal unlabored respirations, skin warm/dry/pink. Vital Signs: 14:49 BP 138 / 98; Pulse 80; Resp 20; Temp 97.1; Pulse Ox 100% on R/A; Weight 132.9 kg; hb Height 5 ft. 9 in. (175.26 cm); Pain 0/10; 16:35 BP 128 / 87; Pulse 74; Resp 18; Pulse Ox 100% on R/A; ph 17:44 BP 132 / 89; Pulse 76; Resp 18; Temp 97.6; Pulse Ox 100% on R/A; ph 14:49 Body Mass Index 43.27 (132.90 kg, 175.26 cm) hb ED Course: 14:45 Patient arrived in ED. mr 14:50 Triage completed. hb 14:51 Arm band placed on. hb 14:53 Faheem Moreno PA is PHCP. [facility] 14:53 Eddie Will MD is Attending Physician. jmm 15:14 Shanell Leon, RN is Primary Nurse. ph 15:50 Patient has correct armband on for positive identification. Placed in gown. Bed in low ph position. Call light in reach. Side rails up X 1. Client placed on continuous cardiac and pulse oximetry monitoring. NIBP monitoring applied. Door closed. Noise minimized. Warm blanket given. 15:50 Initial lab(s) drawn, by id, sent to lab. EKG done, by ED staff, reviewed by Faheem EUBANKS. Missed attempt(s): 22 gauge in right antecubital area. Bleeding controlled, band aid applied, catheter tip intact. 15:51 XRAY Chest (1 view) In Process Unspecified. EDMS 15:51 Patient maintains SpO2 saturation greater than 95% on room air. ph 17:18 Rg Miller MD is Referral Physician. jmm 17:43 No provider procedures requiring assistance completed. IV discontinued, intact, ph bleeding controlled, No redness/swelling at site. Pressure dressing applied. Administered Medications: No medications were administered Medication: 15:51 VIS not applicable for this client. ph Outcome: 17:18 Discharge ordered by . jmm 17:44 Discharged to home ambulatory, with significant other. ph 17:44 Condition: good 17:44 Discharge instructions given to patient, Instructed on discharge instructions, follow up and referral plans. Demonstrated understanding of instructions, follow-up care. 17:50 Patient left the ED. ph Signatures: Dispatcher [employer] EDFaheem Rodriguez PA PA jmm Rivera, Cinda mr Shanell Leon RN RN ph Chrissie Mullins RN RN Corrections: (The following items were deleted from the chart) 15:53 15:52 Pain: ph ph
--- NOTE | 2022-01-09 17:19 | EDPHYS ---
Physician Documentation [facility] Name: Niurka Alatorre Age: 21 yrs Sex: Female : 2000 Arrival Date: 01/09/2022 Time: 14:45 Bed 8 Private MD: ED Physician Eddie Will HPI: 01/09 15:16 This 21 yrs old Black Female presents to ER via Ambulatory with complaints of jmm Palpitations. 15:16 The patient presents with a history of irregular heart beat, heart racing. Onset: The jmm symptoms/episode began/occurred 3 month(s) ago. Duration: The patient or guardian reports multiple episodes, that are intermittent. Modifying factors: The symptoms are aggravated by nothing. The symptoms are alleviated by nothing. Associated signs and symptoms: Pertinent positives: chest pain. The patient has not experienced similar symptoms in the past. TRIAL JUDGE: 15:51 Verified ph Historical: - Allergies: 14:51 No Known Allergies; hb - Immunization history:: Adult Immunizations up to date. - Social history:: Smoking status: Patient denies any tobacco usage or history of. ROS: 15:16 Constitutional: Negative for fever, chills, and weight loss. jmm 15:16 Constitutional: Positive for 15:16 Cardiovascular: Positive for chest pain, palpitations. 15:16 All other systems are negative. Exam: 15:16 Constitutional: This is a well developed, well nourished patient who is awake, alert, jmm and in no acute distress. Head/Face: atraumatic. Eyes: EOMI, no conjunctival erythema appreciated ENT: Moist Mucus Membranes Neck: Trachea midline, Supple Chest/axilla: Normal chest wall appearance and motion. Cardiovascular: Regular rate and rhythm. No edema appreciated Respiratory: Normal respirations, no respiratory distress appreciated Abdomen/GI: Non distended Back: Normal ROM Skin: General appearance color normal 15:16 Musculoskeletal/extremity: ROM: intact in all extremities. 15:16 Skin: Appearance: Color: normal in color. 15:16 Neuro: Orientation: is normal, Mentation: is normal, Memory: 15:16 Psych: Behavior/mood is pleasant, cooperative. Vital Signs: 14:49 BP 138 / 98; Pulse 80; Resp 20; Temp 97.1; Pulse Ox 100% on R/A; Weight 132.9 kg; hb Height 5 ft. 9 in. (175.26 cm); Pain 0/10; 16:35 BP 128 / 87; Pulse 74; Resp 18; Pulse Ox 100% on R/A; ph 17:44 BP 132 / 89; Pulse 76; Resp 18; Temp 97.6; Pulse Ox 100% on R/A; ph 14:49 Body Mass Index 43.27 (132.90 kg, 175.26 cm) hb MDM: 15:16 Patient medically screened. [facility] 17:16 Data reviewed: vital signs, nurses notes. Counseling: I had a detailed discussion with susy the patient and/or guardian regarding: the historical points, exam findings, and any diagnostic results supporting the discharge/admit diagnosis, lab results, the need for outpatient follow up, to return to the emergency department if symptoms worsen or persist or if there are any questions or concerns that arise at home. ED course: Labs unremarkable. Patient advised to follow up with cardiology for further evaluation and othewrise given strict return precautions. Patient understood and agrees with the plan of care. . 01/09 15:16 Order name: Basic Metabolic Panel; Complete Time: 17:00 [facility] 01/09 15:16 Order name: CBC with Diff; Complete Time: 16:25 [facility] 01/09 15:16 Order name: Troponin HS; Complete Time: 17:00 [facility] 01/09 15:16 Order name: XRAY Chest (1 view); Complete Time: 15:59 [facility] 01/09 15:16 Order name: EKG; Complete Time: 15:17 [facility] 01/09 15:16 Order name: Cardiac monitoring; Complete Time: 15:54 [facility] 01/09 15:16 Order name: EKG - Nurse/Tech; Complete Time: 15:54 [facility] 01/09 15:16 Order name: IV Saline Lock; Complete Time: 16:34 [facility] 01/09 15:16 Order name: Labs collected and sent; Complete Time: 15:54 [facility] 01/09 15:16 Order name: O2 Per Protocol; Complete Time: 15:20 [facility] 01/09 15:16 Order name: O2 Sat Monitoring; Complete Time: 15:20 [facility] 01/09 16:05 Order name: Labs - recollect needed: recollect chemistries; Complete Time: 16:34 eb Administered Medications: No medications were administered Disposition: 18:44 Co-signature as Attending Physician, Eddie Will MD. rn Disposition Summary: 01/09/22 17:18 Discharge Ordered Location: Home [facility] Condition: Stable jmm Diagnosis - Palpitations jmm Followup: jm - With: Rg Miller MD - When: 2 - 3 days - Reason: Recheck today's complaints, Continuance of care, Re-evaluation by your physician Discharge Instructions: - Palpitations [facility] - Discharge Summary Sheet ph Forms: - Medication Reconciliation Form [facility] - Thank You Letter [facility] - Antibiotic Education m - Prescription Opioid Use [facility] - Family Work Release ph Signatures: Dispatcher [employer] EDFaheem Rodriguez PA PA jmm Nieto, Roman, MD MD rn Baxter, Heather, RN RN hb Botello, Elizabeth eb
[2022-01-09 17:55] VITALS: O2SAT 100
[2022-01-09 17:58] VITALS: BP 132/89; TEMP 97.6
--- NOTE | 2022-01-11 18:43 | EKG ---
Test Date: 2022-01-09 Test Time: 15:33:51 Community Board Member: PH MEASUREMENT RESULTS: Intervals: Rate: 80 MA: 196 QRSD: 84 QT: 364 QTc: 419 Delaplane: P: 48 MA: 196 QRS: 48 T: 17 INTERPRETIVE STATEMENTS: Normal sinus rhythm Nonspecific ST and T wave abnormality Abnormal ECG Compared to ECG 02/22/2015 14:22:25 ST (T wave) deviation now present Early repolarization no longer present Electronically Signed On 01-11-22 18:38:49 CDT by Leo eMehan
== END 2022-01-09 17:50 | disposition home or self-care (01) ==
LOC: ER 14:42
DX: R00.2 Palpitations (principal); R07.9 Chest pain, unspecified
CPT/HCPCS: 36415; 71045; 80048; 84484; 85025; 93005; 99284

== ENCOUNTER 2022-03-02 10:22 | Emergency (ER) | payer OTHER ==
--- OUTSIDE RECORDS SUMMARY | 2022-03-02 10:29 | XMS REPORT | Continuity of Care Document ---
:2000 Author Organization [facility] t Address [address] [place] [address] Care Team Providers Name Role Phone YI WELLS Primary Care Physician Unavailable MILAGROS BAILEY Attending Clinician Unavailable YI WELLS Attending Clinician Unavailable Visit, Ilia-chjose roberto Nurse Attending Clinician Unavailable Yi Gaston Attending Clinician [phone] Doctor Unassigned, [place] Attending Clinician Unavailable Milagros Denis Attending Clinician Jimmy Bryant DO Attending Clinician Veroncia Clement Attending Clinician VERONICA WALTER Attending Clinician Unavailable Payers Payer Name Policy Type Policy Number Effective Date Expiration Date Jovi menjivar [place] DUAL [id number] 2020 00:00:00 COMP HMO D SNP [facility] BREA STAR [id number] 2018 00:00:00 Problems Condition Condition Condition Status Onset Resolution Last Treating Co mments Source Name Details Category Date Date Treatment Clinician Date UTI UTI Disease Active Overview: Univer s (urinary (urinary 8-19 Treated ity o f tract tract 00:00: on [place] infection) infection) 00 11/06/2018 [facility] Chlamydia Chlamydia Disease Active Uni vers trachomati trachomati 2-07 it y of s s 00:00: [place] infection infection 00 [facility] of lower of lower Branch genitourin genitourin sofia sites sofia sites BMI BMI Disease Active 2018- Univers 33.0-33.9, 33.0-33.9, 2-06 it y of adult adult 00:00: [address] Branch No known No known Disease Unive rs active active ity of problems problems [facility] [place] [facility] Allergies, Adverse Reactions, Alerts Allergy Allergy Status Severity Reaction(s) Onset Inactive Treating Comm ents Source Name Type Date Date Clinician No Known DA Active U [facility] Allergie 1-24 [place] 00:00: Health 00 are [facility] No Known DA Active U [facility] Allergie 124 [place] [facility] 00:00: Health 00 are [facility] No Known DA Active U [facility] Allergie 8-16 [facility] 00:[facility]: [facility] 00 [facility] NO KNOWN Drug Active Univers ALLERGIE Class ity of S [facility] [place] [facility] Social History Social Habit Start Date Stop Date Quantity Comments Source Exposure to Not sure [facility] SARS-CoV-2 [facility] (event) Branch Tobacco use and 2020-08-20 2020-08-20 Never used Universit y of exposure 00:00:00 00:00:00 [facility] [place] [facility] Alcohol intake 2020-08-20 2020-08-20 Current University of 00:00:00 00:00:00 non-drinker of [facility] alcohol Branch (finding) Sex Assigned At 2000 2000 Universit y of 00:00:00 00:00:00 [facility] [place] [facility] Smoking Status Start Date Stop Date Source Never smoker [facility] Medications Ordered Filled Start Stop Current Ordering Indication Dosage Frequency Signature Comments Components Source Medication Medication Date Date Medication? Clinician (SIG) Name Name LOESTRIN FE Yes [id number] 1{tbl} Take 1 Univers (MICROGESTI 6-02 tablet by itMila FE 04/09) 00:00: mouth [place] 1 mg-20 mcg 00 daily. Medica l (21)/75 mg Branch (7) tablet LOESTRIN FE Yes [id number] 1{tbl} Take 1 Univers (MICROGESTI 3-02 tablet by ity of N 04/09) 00:00: mouth [place] 1 mg-20 mcg 00 daily. Medica l (21)/75 mg Branch (7) tablet LOESTRIN FE 2020-0 Yes [id number] 1{tbl} Take 1 Univers (MICROGESTI 3-02 tablet by ity of N 04/09) 00:00: mouth [place] 1 mg-20 mcg 00 daily. Medica l (21)/75 mg Branch (7) tablet LOESTRIN FE 2020-0 Yes [id number] 1{tbl} Take 1 Univers (MICROGESTI 3-02 tablet by ity of N 04/09) 00:00: mouth [place] 1 mg-20 mcg 00 daily. Medica l (21)/75 mg Branch (7) tablet LOESTRIN FE 2020-0 Yes [id number] 1{tbl} Take 1 Univers (MICROGESTI 3-02 tablet by ity of N 04/09) 00:00: mouth [place] 1 mg-20 mcg 00 daily. Medica l (21)/75 mg Branch (7) tablet LOESTRIN FE 2020-0 Yes [id number] 1{tbl} Take 1 Univers (MICROGESTI 3-02 tablet by ity of N 04/09) 00:00: mouth [place] 1 mg-20 mcg 00 daily. Medica l (21)/75 mg Branch (7) tablet LOESTRIN FE 0 2020- No [id number] 1{tbl} Take 1 Univers (MICROGESTI 3-02 06-02 tablet by it y of [facility] 04/09) 00:00: 00:00 mouth [place] 1 mg-20 mcg 00 :00 daily. Medica l (21)/75 mg Branch (7) tablet Nitrofurant 2019- No [id number] 100mg Take 1 Univers oin&Nit. 8-19 08-30 capsule by ity of [place] 00:00: 04:59 mouth 2 [place] as (MACROBID) 00 :00 (two) Medical 100 mg times Branch capsule daily for 10 days. Nitrofurant 2019- No [id number] 100mg Take 1 Univers oin&Nit. 8-19 08-30 capsule by ity of [place] 00:00: 04:59 mouth 2 [place] as (MACROBID) 00 :00 (two) Medical 100 mg times Branch capsule daily for 10 days. Nitrofurant 2019- No [id number] 100mg Take 1 Univers oin&Nit. 11-06 capsule by ity of [place] 00:00: 04:59 mouth 2 [place] as (MACROBID) 00 :00 (two) Medical 100 mg times Branch capsule daily for 10 days. Nitrofurant 2018- No [id number] 100mg Take 1 Univers oin&Nit. 11-06 capsule by ity of [place] 00:00: 04:59 mouth 2 [place] as (MACROBID) 00 :00 (two) Medical 100 mg times Branch capsule daily for 10 days. Nitrofurant 2018- No [id number] 100mg Take 1 Univers oin&Nit. 11-06 capsule by ity of [place] 00:00: 04:59 mouth 2 [place] as (MACROBID) 00 :00 (two) Medical 100 mg times Branch capsule daily for 10 days. No known No Univers medications ity [facility] No known [facility] medications ity [facility] No known No [facility] No known No Univers medications [facility] Immunizations Ordered Immunization Filled Immunization Date Status Commen ts Source Name Name Influenza Virus 2017-12-18 Completed Universit y of Vaccine 00:00:00 [facility] [place] [facility] Influenza Virus 2017-12-18 Completed Universit y of Vaccine 00:00:00 [facility] [place] [facility] Influenza Virus 2017-12-18 Completed Universit y of Vaccine 00:00:00 [facility] [place] [facility] Influenza Virus 2017-12-18 Completed Universit y of Vaccine 00:00:00 [facility] [place] [facility] Influenza Virus 2017-12-18 Completed Universit y of Vaccine 00:00:00 [facility] [place] [facility] Influenza Virus 2017-12-18 Completed Universit y of Vaccine 00:00:00 [facility] [place] [facility] Influenza Virus 2017-12-18 Completed Universit y of Vaccine 00:00:00 [facility] [place] [facility] Influenza Virus 2017-12-18 Completed Universit y of Vaccine 00:00:00 [facility] [place] [facility] Influenza Virus 2017-12-18 Completed Universit y of Vaccine 00:00:00 [facility] [place] [facility] Influenza Virus 2017-12-18 Completed Universit y of Vaccine 00:00:00 [facility] [place] [facility] Influenza Virus 2017-12-18 Completed Universit y of Vaccine 00:00:00 [facility] [place] [facility] Influenza Virus 2017-12-18 Completed Universit y of Vaccine 00:00:00 [facility] [place] [facility] Influenza Virus 2017-12-18 Completed Universit y of Vaccine 00:00:00 [facility] [place] [facility] Influenza Virus 2017-12-18 Completed Universit y of Vaccine 00:00:00 [facility] [place] [facility] Influenza Virus 2017-12-18 Completed Universit y of Vaccine 00:00:00 [facility] [place] [facility] Influenza Virus 2017-12-18 Completed Universit y of Vaccine 00:00:00 [facility] [place] [facility] HPV 2011-12-27 Completed University of 00:00:00 [facility] [place] [facility] Influenza Virus 2011-12-27 Completed Universit y of Vaccine (3+ yrs) 00:00:00 [facility] Meningococcal 2011-12-27 Completed University of Polysaccharide 00:00:00 [place] Medi elder (groups A, C, Y and Branc h W-135) conjugate vaccine (MCV4P) TDAP 2011-12-27 Completed University of 00:00:00 [facility] [place] [facility] HPV 2011-12-27 Completed University of 00:00:00 [facility] [place] [facility] Influenza Virus 2011-12-27 Completed Universit y of Vaccine (3+ yrs) 00:00:00 [facility] Meningococcal 2011-12-27 Completed University of Polysaccharide 00:00:00 [place] [facility]i elder (groups A, C, Y and Branc h W-135) conjugate vaccine (MCV4P) TDAP 2011-12-27 Completed University of 00:00:00 [facility] [place] [facility] HPV 2011-12-27 Completed University of 00:00:00 [facility] [place] [facility] Influenza Virus 2011-12-27 Completed Universit y of Vaccine (3+ yrs) 00:00:00 [facility] Meningococcal 2011-12-27 Completed University of Polysaccharide 00:00:00 [place] Medi elder (groups A, C, Y and Branc h W-135) conjugate vaccine (MCV4P) TDAP 2011-12-27 Completed University of 00:00:00 [facility] [place] [facility] HPV 2011-12-27 Completed University of 00:00:00 [facility] [place] [facility] Influenza Virus 2011-12-27 Completed Universit y of Vaccine (3+ yrs) 00:00:00 [facility] Meningococcal 2011-12-27 Completed University of Polysaccharide 00:00:00 [place] Medi elder (groups A, C, Y and Branc h W-135) conjugate vaccine (MCV4P) TDAP 2011-12-27 Completed University of 00:00:00 [facility] [place] [facility] HPV 2011-12-27 Completed University of 00:00:00 [facility] [place] [facility] Influenza Virus 2011-12-27 Completed Universit y of Vaccine (3+ yrs) 00:00:00 [facility] Meningococcal 2011-12-27 Completed University of Polysaccharide 00:00:00 [place] [facility] elder (groups A, C, Y and Branc h W-135) conjugate vaccine (MCV4P) TDAP 2011-12-27 Completed University of 00:00:00 [facility] [place] [facility] HPV 2011-12-27 Completed University of 00:00:00 [facility] [place] [facility] Influenza Virus 2011-12-27 Completed Universit y of Vaccine (3+ yrs) 00:00:00 [facility] Meningococcal 2011-12-27 Completed University of Polysaccharide 00:00:00 [place] Medi elder (groups A, C, Y and Branc h W-135) conjugate vaccine (MCV4P) TDAP 2011-12-27 Completed University of 00:00:00 [facility] [place] [facility] HPV 2011-12-27 Completed University of 00:00:00 [facility] [place] [facility] Influenza Virus 2011-12-27 Completed Universit y of Vaccine (3+ yrs) 00:00:00 [facility] Meningococcal 2011-12-27 Completed University of Polysaccharide 00:00:00 [place] [facility] elder (groups A, C, Y and Branc h W-135) conjugate vaccine (MCV4P) TDAP 2011-12-27 Completed University of 00:00:00 [facility] [place] [facility] HPV 2011-12-27 Completed University of 00:00:00 [facility] [place] [facility] Influenza Virus 2011-12-27 Completed Universit y of Vaccine (3+ yrs) 00:00:00 [facility] Meningococcal 2011-12-27 Completed University of Polysaccharide 00:00:00 [place] Medi elder (groups A, C, Y and Branc h W-135) conjugate vaccine (MCV4P) TDAP 2011-12-27 Completed University of 00:00:00 [facility] [place] [facility] HPV 2011-12-27 Completed University of 00:00:00 [facility] [place] [facility] Influenza Virus 2011-12-27 Completed Universit y of Vaccine (3+ yrs) 00:00:00 [place] Me dical Branch Meningococcal 2011-12-27 Completed University of Polysaccharide 00:00:00 [facility] elder (groups A, C, Y and Branc h W-135) conjugate vaccine (MCV4P) TDAP 2011-12-27 Completed University of 00:00:00 [facility] [place] [facility] Varicella 2007-02-23 Completed University of (varivax)(chicken 00:00:00 [...] HEPATITIS A 2007-01-09 Completed University of 00:00:00 [facility] [place] [facility] HEPATITIS A 2007-01-09 Completed University of 00:00:00 [facility] [place] [facility] HEPATITIS A 2007-01-09 Completed University of 00:00:00 [facility] [place] [facility] HEPATITIS A 2007-01-09 Completed University of 00:00:00 [facility] [place] [facility] HEPATITIS A 2007-01-09 Completed University of 00:00:00 [facility] [place] [facility] HEPATITIS A 2007-01-09 Completed University of 00:00:00 [facility] [place] [facility] Varicella 2007-01-09 Completed University of (varivax)(chicken 00:00:00 [place] M edical pox) Branch HEPATITIS A 2007-01-09 Completed University of 00:00:00 [facility] [place] [facility] Varicella 2007-01-09 Completed University of (varivax)(chicken 00:00:00 [place] M edical pox) Branch HEPATITIS A 2007-01-09 Completed University of 00:00:00 [facility] [place] [facility] Varicella 2007-01-09 Completed University of (varivax)(chicken 00:00:00 [place] M edical pox) Branch HEPATITIS A 2007-01-09 Completed University of 00:00:00 [facility] [place] [facility] Varicella 2007-01-09 Completed University of (varivax)(chicken 00:00:00 [place] M edical pox) Branch HEPATITIS A 2007-01-09 Completed University of 00:00:00 [facility] [place] [facility] Varicella 2007-01-09 Completed University of (varivax)(chicken 00:00:00 [place] M edical pox) Branch HEPATITIS A 2007-01-09 Completed University of 00:00:00 [facility] [place] [facility] Varicella 2007-01-09 Completed University of (varivax)(chicken 00:00:00 [place] M [facility]ical pox) Branch HEPATITIS A 2007-01-09 Completed University of 00:00:00 [facility] [place] [facility] Varicella 2007-01-09 Completed University of (varivax)(chicken 00:00:00 [place] M [facility]ical pox) Branch HEPATITIS A 2007-01-09 Completed University of 00:00:00 [facility] [place] [facility] Varicella 2007-01-09 Completed University of (varivax)(chicken 00:00:00 [place] M edical pox) Branch HEPATITIS A 2007-01-09 Completed University of 00:00:00 [facility] Branch Varicella 2007-01-09 Completed University of (varivax)(chicken 00:00:00 [facility] edical pox) Branch HEPATITIS A 2007-01-09 Completed University of 00:00:00 [place] [facility] HEPATITIS A 2007-01-09 Completed University of 00:00:00 [facility] Branch HEPATITIS A 2006-03-23 Completed University of 00:00:00 [facility] Branch HEPATITIS A 2006-03-23 Completed University of 00:00:00 [facility] Branch HEPATITIS A 2006-03-23 Completed University of 00:00:00 [facility] Branch HEPATITIS A 2006-03-23 Completed University of 00:00:00 [facility] Branch HEPATITIS A 2006-03-23 Completed University of 00:00:00 [facility] Branch HEPATITIS A 2006-03-23 Completed University of 00:00:00 [facility] Branch HEPATITIS A 2006-03-23 Completed University of 00:00:00 [facility] [place] [facility] HEPATITIS A 2006-03-23 Completed University of 00:00:00 [facility] [place] [facility] HEPATITIS A 2006-03-23 Completed University of 00:00:00 [facility] Branch DTAP 2005-03-23 Completed University of 00:00:00 [facility] [place] [facility] IPV 2005-03-23 Completed University of 00:00:00 [facility] [place] [facility] MMR 2005-03-23 Completed University of 00:00:00 [facility] [place] [facility] HEPATITIS A 2005-03-23 Completed University of 00:00:00 [facility] Branch DTAP 2005-03-23 Completed University of 00:00:00 [facility] Branch IPV 2005-03-23 Completed University of 00:00:00 [facility] Branch MMR 2005-03-23 Completed University of 00:00:00 [facility] [place] [facility] HEPATITIS A 2005-03-23 Completed University of 00:00:00 [facility] Branch DTAP 2005-03-23 Completed University of 00:00:00 [facility] Branch IPV 2005-03-23 Completed University of 00:00:00 [facility] Branch MMR 2005-03-23 Completed University of 00:00:00 [facility] Branch HEPATITIS A 2005-03-23 Completed University of 00:00:00 [facility] Branch DTAP 2005-03-23 Completed University of 00:00:00 [facility] Branch IPV 2005-03-23 Completed University of 00:00:00 [facility] Branch MMR 2005-03-23 Completed University of 00:00:00 [facility] [place] [facility] HEPATITIS A 2005-03-23 Completed University of 00:00:00 [place] [facility] DTAP 2005-03-23 Completed University of 00:00:00 [place] [facility] IPV 2005-03-23 Completed University of 00:00:00 [place] [facility] MMR 2005-03-23 Completed University of 00:00:00 [facility] Branch HEPATITIS A 2005-03-23 Completed University of 00:00:00 [place] [facility] DTAP 2005-03-23 Completed University of 00:00:00 [place] [facility] IPV 2005-03-23 Completed University of 00:00:00 [place] [facility] MMR 2005-03-23 Completed University of 00:00:00 [facility] Branch HEPATITIS A 2005-03-23 Completed University of 00:00:00 [place] [facility] DTAP 2005-03-23 Completed University of 00:00:00 [place] [facility] IPV 2005-03-23 Completed University of 00:00:00 [place] [facility] MMR 2005-03-23 Completed University of 00:00:00 [facility] Branch HEPATITIS A 2005-03-23 Completed University of 00:00:00 [place] [facility] DTAP 2005-03-23 Completed University of 00:00:00 [place] [facility] IPV 2005-03-23 Completed University of 00:00:00 [place] [facility] MMR 2005-03-23 Completed University of 00:00:00 [facility] Branch HEPATITIS A 2005-03-23 Completed University of 00:00:00 [place] [facility] DTAP 2005-03-23 Completed University of 00:00:00 [facility] Branch IPV 2005-03-23 Completed University of 00:00:00 [place] [facility] MMR 2005-03-23 Completed University of 00:00:00 [facility] Branch HEPATITIS A 2005-03-23 Completed University of 00:00:00 [place] [facility] DTAP 2002-03-28 Completed University of 00:00:00 [place] [facility] IPV 2002-03-28 Completed University of 00:00:00 [facility] Branch MMR 2002-03-28 Completed University of 00:00:00 [facility] Branch Varicella 2002-03-28 Completed University of (varivax)(chicken 00:00:00 [place] M edical pox) Branch Heamophilus Influenza 2002-03-28 Completed Uni versity of B 00:00:00 [facility] Branch DTAP 2002-03-28 Completed University of 00:00:00 [place] [facility] IPV 2002-03-28 Completed University of 00:00:00 [facility] [place] [facility] MMR 2002-03-28 Completed University of 00:00:00 [facility] [place] [facility] Varicella 2002-03-28 Completed University of (varivax)(chicken 00:00:00 [place] M edical pox) Branch Heamophilus Influenza 2002-03-28 Completed Uni versity of B 00:00:00 [facility] [place] [facility] DTAP 2002-03-28 Completed University of 00:00:00 [facility] [place] [facility] IPV 2002-03-28 Completed University of 00:00:00 [facility] [place] [facility] MMR 2002-03-28 Completed University of 00:00:00 [facility] [place] [facility] Varicella 2002-03-28 Completed University of (varivax)(chicken 00:00:00 [place] M edical pox) Branch Heamophilus Influenza 2002-03-28 Completed Uni versity of B 00:00:00 [facility] [place] [facility] DTAP 2002-03-28 Completed University of 00:00:00 [facility] [place] [facility] IPV 2002-03-28 Completed University of 00:00:00 [facility] [place] [facility] MMR 2002-03-28 Completed University of 00:00:00 [facility] [place] [facility] Varicella 2002-03-28 Completed University of (varivax)(chicken 00:00:00 [place] M edical pox) Branch Heamophilus Influenza 2002-03-28 Completed Uni versity of B 00:00:00 [facility] [place] [facility] DTAP 2002-03-28 Completed University of 00:00:00 [facility] [place] [facility] IPV 2002-03-28 Completed University of 00:00:00 [facility] [place] [facility] MMR 2002-03-28 Completed University of 00:00:00 [facility] [place] [facility] Varicella 2002-03-28 Completed University of (varivax)(chicken 00:00:00 [place] M edical pox) Branch Heamophilus Influenza 2002-03-28 Completed Uni versity of B 00:00:00 [facility] [place] [facility] DTAP 2002-03-28 Completed University of 00:00:00 [facility] [place] [facility] IPV 2002-03-28 Completed University of 00:00:00 [facility] [place] [facility] MMR 2002-03-28 Completed University of 00:00:00 [facility] [place] [facility] Varicella 2002-03-28 Completed University of (varivax)(chicken 00:00:00 [place] M edical pox) Branch Heamophilus Influenza 2002-03-28 Completed Uni versity of B 00:00:00 [facility] Branch DTAP 2002-03-28 Completed University of 00:00:00 [facility] [place] [facility] IPV 2002-03-28 Completed University of 00:00:00 [facility] Branch MMR 2002-03-28 Completed University of 00:00:00 [facility] Branch Varicella 2002-03-28 Completed University of (varivax)(chicken 00:00:00 [place] M edical pox) Branch Heamophilus Influenza 2002-03-28 Completed Uni versity of B 00:00:00 [facility] Branch DTAP 2002-03-28 Completed University of 00:00:00 [facility] Branch IPV 2002-03-28 Completed University of 00:00:00 [facility] Branch MMR 2002-03-28 Completed University of 00:00:00 [facility] Branch Varicella 2002-03-28 Completed University of (varivax)(chicken 00:00:00 [place] M edical pox) Branch Heamophilus Influenza 2002-03-28 Completed Uni versity of B 00:00:00 [facility] [place] [facility] DTAP 2002-03-28 Completed University of 00:00:00 [facility] [place] [facility] IPV 2002-03-28 Completed University of 00:00:00 [facility] [place] [facility] MMR 2002-03-28 Completed University of 00:00:00 [facility] Branch Varicella 2002-03-28 Completed University of (varivax)(chicken 00:00:00 [place] M edical pox) Branch Heamophilus Influenza 2002-03-28 Completed Uni versity of B 00:00:00 [facility] [place] [facility] Hep B, Adol or Pedi 2002-01-19 Completed Unive rsity of Dosage 00:00:00 [facility] [place] [facility] Hep B, Adol or Pedi 2002-01-19 Completed Unive rsity of Dosage 00:00:00 [facility] Branch Hep B, Adol or Pedi 2002-01-19 Completed Unive rsity of Dosage 00:00:00 [facility] Branch Hep B, Adol or Pedi 2002-01-19 Completed Unive rsity of Dosage 00:00:00 [facility] Branch Hep B, Adol or Pedi 2002-01-19 Completed Unive rsity of Dosage 00:00:00 [facility] Branch Hep B, Adol or Pedi 2002-01-19 Completed Unive rsity of Dosage 00:00:00 [facility] Branch Hep B, Adol or Pedi 2002-01-19 Completed Unive rsity of Dosage 00:00:00 [facility] Branch Hep B, Adol or Pedi 2002-01-19 Completed Unive rsity of Dosage 00:00:00 [place] [facility] Hep B, Adol or Pedi 2002-01-19 Completed Unive rsity of Dosage 00:00:00 [facility] Branch DTAP 2001-01-19 Completed University of 00:00:00 [facility] Branch Hep B, Adol or Pedi 2001-01-19 Completed Unive rsity of Dosage 00:00:00 [facility] Heamophilus Influenza 2001-01-19 Completed Uni versity of B 00:00:00 [facility] DTAP 2001-01-19 Completed University of 00:00:00 [facility] Hep B, Adol or Pedi 2001-01-19 Completed Unive rsity of Dosage 00:00:00 [facility] Heamophilus Influenza 2001-01-19 Completed Uni versity of B 00:00:00 [facility] DTAP 2001-01-19 Completed University of 00:00:00 [facility] Hep B, Adol or Pedi 2001-01-19 Completed Unive rsity of Dosage 00:00:00 [facility] Heamophilus Influenza 2001-01-19 Completed Uni versity of B 00:00:00 [facility] DTAP 2001-01-19 Completed University of 00:00:00 [facility] Hep B, Adol or Pedi 2001-01-19 Completed Unive rsity of Dosage 00:00:00 [facility] Heamophilus Influenza 2001-01-19 Completed Uni versity of B 00:00:00 [facility] DTAP 2001-01-19 Completed University of 00:00:00 [facility] Hep B, Adol or Pedi 2001-01-19 Completed Unive rsity of Dosage 00:00:00 [facility] Heamophilus Influenza 2001-01-19 Completed Uni versity of B 00:00:00 [facility] DTAP 2001-01-19 Completed University of 00:00:00 [facility] Hep B, Adol or Pedi 2001-01-19 Completed Unive rsity of Dosage 00:00:00 [facility] Heamophilus Influenza 2001-01-19 Completed Uni versity of B 00:00:00 [facility] DTAP 2001-01-19 Completed University of 00:00:00 [facility] Hep B, Adol or Pedi 2001-01-19 Completed Unive rsity of Dosage 00:00:00 [facility] Heamophilus Influenza 2001-01-19 Completed Uni versity of B 00:00:00 [facility] DTAP 2001-01-19 Completed University of 00:00:00 [facility] Hep B, Adol or Pedi 2001-01-19 Completed Unive rsity of Dosage 00:00:00 [facility] Heamophilus Influenza 2001-01-19 Completed Uni versity of B 00:00:00 [facility] DTAP 2001-01-19 Completed University of 00:00:00 [facility] Hep B, Adol or Pedi 2001-01-19 Completed Unive rsity of Dosage 00:00:00 [facility] Heamophilus Influenza 2001-01-19 Completed Uni versity of B 00:00:00 [facility] DTAP 2000 Completed University of 00:00:00 [facility] IPV 2000 Completed University of 00:00:00 [facility] Pneumococcal 7 2000 Completed University of Conjugate, PCV7 00:00:00 [place] [facility] Heamophilus Influenza 2000 Completed Uni versity of B 00:00:00 [facility] DTAP 2000 Completed University of 00:00:00 [facility] IPV 2000 Completed University of 00:00:00 [facility] Pneumococcal 7 2000 Completed University of Conjugate, PCV7 00:00:00 [place] [facility] Heamophilus Influenza 2000 Completed Uni versity of B 00:00:00 [facility] DTAP 2000 Completed University of 00:00:00 [facility] IPV 2000 Completed University of 00:00:00 [facility] Pneumococcal 7 2000 Completed University of Conjugate, PCV7 00:00:00 [place] [facility] Heamophilus Influenza 2000 Completed Uni versity of B 00:00:00 [facility] DTAP 2000 Completed University of 00:00:00 [facility] IPV 2000 Completed University of 00:00:00 [facility] Pneumococcal 7 2000 Completed University of Conjugate, PCV7 00:00:00 [place] [facility] Heamophilus Influenza 2000 Completed Uni versity of B 00:00:00 [facility] DTAP 2000 Completed University of 00:00:00 [facility] IPV 2000 Completed University of 00:00:00 [facility] Pneumococcal 7 2000 Completed University of Conjugate, PCV7 00:00:00 [facility] Heamophilus Influenza 2000 Completed Uni versity of B 00:00:00 [facility] DTAP 2000 Completed University of 00:00:00 [facility] IPV 2000 Completed University of 00:00:00 [facility] Pneumococcal 7 2000 Completed University of Conjugate, PCV7 00:00:00 [facility] Heamophilus Influenza 2000 Completed Uni versity of B 00:00:00 [facility] DTAP 2000 Completed University of 00:00:00 [facility] IPV 2000 Completed University of 00:00:00 [facility] Pneumococcal 7 2000 Completed University of Conjugate, PCV7 00:00:00 [place] [facility] Heamophilus Influenza 2000 Completed Uni versity of B 00:00:00 [facility] DTAP 2000 Completed University of 00:00:00 [facility] IPV 2000 Completed University of 00:00:00 [facility] Pneumococcal 7 2000 Completed University of Conjugate, PCV7 00:00:00 [place] [facility] Heamophilus Influenza 2000 Completed Uni versity of B 00:00:00 [facility] DTAP 2000 Completed University of 00:00:00 [facility] IPV 2000 Completed University of 00:00:00 [facility] Pneumococcal 7 2000 Completed University of Conjugate, PCV7 00:00:00 [place] [facility] amophilus Influenza 2000 Completed Uni versity of B 00:00:00 [facility] DTAP 2000 Completed University of 00:00:00 [facility] Hep B, Adol or Pedi 2000 Completed Unive rsity of Dosage 00:00:00 [facility] IPV 2000 Completed University of 00:00:00 [facility] Heamophilus Influenza 2000 Completed Uni versity of B 00:00:00 [facility] DTAP 2000 Completed University of 00:00:00 [facility] Hep B, Adol or Pedi 2000 Completed Unive rsity of Dosage 00:00:00 [facility] IPV 2000 Completed University of 00:00:00 [facility] Heamophilus Influenza 2000 Completed Uni versity of B 00:00:00 [facility] DTAP 2000 Completed University of 00:00:00 [facility] Hep B, Adol or Pedi 2000 Completed Unive rsity of Dosage 00:00:00 [facility] IPV 2000 Completed University of 00:00:00 [facility] Heamophilus Influenza 2000 Completed Uni versity of B 00:00:00 [facility] DTAP 2000 Completed University of 00:00:00 [facility] Hep B, Adol or Pedi 2000 Completed Unive rsity of Dosage 00:00:00 [facility] IPV 2000 Completed University of 00:00:00 [facility] Heamophilus Influenza 2000 Completed Uni versity of B 00:00:00 [facility] DTAP 2000 Completed University of 00:00:00 [facility] Hep B, Adol or Pedi 2000 Completed Unive rsity of Dosage 00:00:00 [facility] IPV 2000 Completed University of 00:00:00 [facility] Heamophilus Influenza 2000 Completed Uni versity of B 00:00:00 [facility] DTAP 2000 Completed University of 00:00:00 [facility] Hep B, Adol or Pedi 2000 Completed Unive rsity of Dosage 00:00:00 [facility] IPV 2000 Completed University of 00:00:00 [facility] Heamophilus Influenza 2000 Completed Uni versity of B 00:00:00 [facility] DTAP 2000 Completed University of 00:00:00 [facility] Hep B, Adol or Pedi 2000 Completed Unive rsity of Dosage 00:00:00 [facility] IPV 2000 Completed University of 00:00:00 [facility] Heamophilus Influenza 2000 Completed Uni versity of B 00:00:00 [facility] DTAP 2000 Completed University of 00:00:00 [facility] Hep B, Adol or Pedi 2000 Completed Unive rsity of Dosage 00:00:00 [facility] IPV 2000 Completed University of 00:00:00 [facility] Heamophilus Influenza 2000 Completed Uni versity of B 00:00:00 [facility] DTAP 2000 Completed University of 00:00:00 [facility] Hep B, Adol or Pedi 2000 Completed Unive rsity of Dosage 00:00:00 [facility] IPV 2000 Completed University of 00:00:00 [facility] Heamophilus Influenza 2000 Completed Uni versity of B 00:00:00 [facility] Hep B, Adol or Pedi 2000 Completed Unive rsity of Dosage 00:00:00 [facility] Hep B, Adol or Pedi 2000 Completed Unive rsity of Dosage 00:00:00 [facility] Hep B, Adol or Pedi 2000 Completed Unive rsity of Dosage 00:00:00 [facility] Hep B, Adol or Pedi 2000 Completed Unive rsity of Dosage 00:00:00 [facility] Hep B, Adol or Pedi 2000 Completed Unive rsity of Dosage 00:00:00 [facility] Hep B, Adol or Pedi 2000 Completed Unive rsity of Dosage 00:00:00 [facility] Hep B, Adol or Pedi 2000 Completed Unive rsity of Dosage 00:00:00 [facility] Hep B, Adol or Pedi 2000 Completed Unive rsity of Dosage 00:00:00 [facility] Hep B, Adol or Pedi 2000 Completed Unive rsity of Dosage 00:00:00 [facility] Vital Signs Vital Name Observation Time Observation Value Comments Source Systolic blood 2020-08-20 14:56:00 125 mm[Hg] Univer sity of pressure [facility] Diastolic blood 2020-08-20 14:56:00 76 mm[Hg] Unive rsity of pressure [facility] Heart rate 2020-08-20 14:56:00 78 /min [facility] Body temperature 2020-08-20 14:56:00 36.72 Yuki Univ ers[facility] of [facility] Body weight 2020-08-20 14:56:00 124.376 kg [facility] Systolic blood 2020-05-20 16:05:00 129 mm[Hg] Univer sity of pressure [facility] Diastolic blood 2020-05-20 16:05:00 77 mm[Hg] Unive rsity of pressure [facility] Heart rate 2020-05-20 16:05:00 84 /min [facility] Body temperature 2020-05-20 16:05:00 36.72 Yuki [facility] Respiratory rate 2020-05-20 16:05:00 16 /min [facility] Body height 2020-05-20 16:05:00 172.7 cm [facility] Body weight 2020-05-20 16:05:00 107.559 kg [facility] BMI 2020-05-20 16:05:00 36.05 kg/m2 [facility] Systolic blood 2020-05-12 15:37:00 132 mm[Hg] Univer sity of pressure [facility] Diastolic blood 2020-05-12 15:37:00 88 mm[Hg] Unive rsity of pressure [facility] Heart rate 2020-05-12 15:37:00 84 /min [facility] Body temperature 2020-05-12 15:37:00 36.67 Yuki [facility] Respiratory rate 2020-05-12 15:37:00 16 /min [facility] Body height 2020-05-12 15:37:00 172.7 cm [facility] Body weight 2020-05-12 15:37:00 105.235 kg [facility] BMI 2020-05-12 15:37:00 35.28 kg/m2 [...] 2018-11-08 14:03:00 16 /min [facility] Body height 2018-11-08 14:03:00 172.7 [...] 2018-11-02 14:09:00 16 /min [facility] Body height 2018-11-02 14:09:00 172.7 cm [facility] Body weight 2018-11-02 14:09:00 102.513 kg [facility] BMI 2018-11-02 14:09:00 34.36 kg/m2 [facility] Systolic blood 2018-11-02 14:09:00 135 mm[Hg] Mateo [facility] Diastolic blood 2018-11-02 14:09:00 83 mm[Hg] [facility] Procedures Procedure Date / Time Performing Clinician Source Performed NOTICE OF BILLING 2020-08-20 14:28:35 Doctor Jazzy, [facility] PRACTICES FOR MEDICARE [place] [facility]IENTS POCT TEST 2020-05-20 16:17:00 [facility] POCT TEST 2020-05-12 15:49:00 Veronica [facility] CONSENT/REFUSAL FOR 2020-05-12 14:40:28 Doctor Jazzy [facility] DIAGNOSIS AND TREATMENT [place] [facility] POCT TEST 2018-11-08 14:05:00 Yi [facility] POCT TEST 2018-11-02 14:30:00 Veronica Walter [facility] POCT URINALYSIS W/O 2018-11-02 14:29:00 Veronica Walter [facility] SPECIFIC GRAVITY [facility] POCT URINALYSIS 2018-11-02 14:12:00 Veronica Walter [facility] NO SHOW OR MISSED 2018-11-02 13:56:35 Doctor Jazzy [facility] APPOINTMENT POLICY [place] [facility] h ACKNOWLEDGEMENT Encounters Start End Encounter Admission Attending Care Care Encounter Source Date/Time Date/Time Type Type Clinicians Facility Department ID 2020-04-13 Inpatient HCANW LUIZ [id number] [facility] 02:17:00 33 [facility] 2021-05-21 2021-05-21 Outpatient R LYNN [facility] [id number] Univers 15:15:00 15:15:00 MILAGROS henry [facility] 2021-05-21 2021-05-21 Outpatient R PRISCILLA [facility] [id number] Univers 13:15:00 13:15:00 YI henry o f [facility] 2020-08-20 2020-08-20 Nurse Visit, Ang-Rmchp Nurse [facility] 1.2 .840.114 [id number] Univers 09:25:21 09:56:10 Visit Yi Wells THEATER TECHNICIAN [id number]. 10 ity of [facility] [id number] [place] as MATERNAL [id number] [facility] & CHILD [address] [place] [address] 2020-08-20 2020-08-20 Outpatient R [facility] [id number] Univers 09:30:00 09:30:00 ity of [facility] 2020-08-20 2020-08-20 Orders Doctor KARISHMA 1.2.840.114 [id number] Univers 00:00:00 00:00:00 Only Unassigned, ALEJANDRO [id number] ity of [place] [facility] 4.2.7.2.686 [place] as [id number] [address] 2020-06-17 2020-06-17 [facility] [id number] Univers 00:00:00 00:00:00 Milagros El THEATER TECHNICIAN [id number] it y of [facility] [id number] [place] as MATERNAL [id number] [facility] & CHILD [address] [place] [address] 2020-06-10 2020-06-10 Patient Manny [facility] 1.2.840.114 [id number] Univers 00:00:00 00:00:00 Outreach Jimmy IRIZARRY [id number] i ty of [facility] 4.2.7.2.686 [place] [id number] [place] dical [address] 2020-05-20 2020-05-20 Outpatient R PRISCILLA [facility] [id number] Univers 15:15:00 15:15:00 YI henry o f [facility] 2020-05-20 2020-05-20 [facility] [id number] Univers 09:44:02 10:44:43 Visit Milagros El THEATER TECHNICIAN [id number] it y of REGIONAL [id number] [place] MATERNAL [id number] [facility] ical & CHILD [address] [place] [address] 2020-05-20 2020-05-20 Outpatient R LYNN [facility] [id number] Univers 09:45:00 09:45:00 MILAGROS ity of [facility] 2020-05-12 2020-05-12 [facility] 1.2 .840.114 [id number] Univers 09:15:42 09:40:19 Visit Yi Wells THEATER TECHNICIAN 350.1.13. 10 ity of [facility] [id number] [place] as MATERNAL [id number] Med ical & CHILD [address] [place] [address] 2020-05-12 2020-05-12 Fe Walter [facility] 1.2.840.114 [id number] Univers 09:00:00 09:30:00 Veronica Lam THEATER TECHNICIAN [id number] ity of Visit REGIONAL 4.2.7.2.686 [place] as MATERNAL [id number] Med ical & CHILD [address] [place] [address] 2020-05-12 2020-05-12 Outpatient Carole WALTER [facility] [id number] Univers 09:00:00 09:00:00 VERONICA henry o kassie [facility] 2020-05-12 2020-05-12 Orders Doctor SCHWARZ 1.2.840.114 [id number] Univers 00:00:00 00:00:00 Only Unassigned, ALEJANDRO 350.1.13.10 ity of [place] [facility] 4.2.7.2.686 [place] as [id number] [address] 2020-05-07 2020-05-07 Outpatient R [facility] [id number] Univers 13:30:00 13:30:00 ity of [facility] 2020-05-05 2020-05-05 [facility] [id number] Univers 14:00:00 14:00:00 VERONICA henry o f [facility] 2019-04-06 2019-04-06 Emergency E [facility] [id number] [facility] 00:22:00 00:22:00 2018-11-16 2018-11-16 Telephone Boandres [facility] 1.2.840.114 [id number] Univers 00:00:00 00:00:00 Yi C THEATER TECHNICIAN 350.1.13.10 ity of REGIONAL 4.2.7.2.686 [place] as MATERNAL [id number] Med ical & CHILD [address] [place] [address] 2018-11-16 2018-11-16 Telephone Borodrick [facility] 1.2.840.114 [id number] 00:00:00 00:00:00 Yi C THEATER TECHNICIAN 350.1.13.10 REGIONAL 4.2.7.2.686 MATERNAL [id number] & CHILD [address] [place] [address] 2018-11-08 2018-11-08 Office Priscilla [facility] [id number] [facility] 08:41:58 09:34:25 Visit Yi C THEATER TECHNICIAN 350.1.13.10 ity of REGIONAL 4.2.7.2.686 [place] as MATERNAL [id number] Med ical & CHILD [address] [place] [address] 2018-11-08 2018-11-08 Office Borodrick [facility] [id number] 08:41:58 09:34:25 Visit Yi C THEATER TECHNICIAN 350.1.13.10 REGIONAL 4.2.7.2.686 MATERNAL [id number] & CHILD [address] [place] [address] 2018-11-06 2018-11-06 Telephone Saba NHDEEPTHI [id number] Univers 00:00:00 00:00:00 Veronica R THEATER TECHNICIAN 350.1.13.10 ity of REGIONAL 4.2.7.2.686 [place] as MATERNAL [id number] Med ical & CHILD [address] [place] [address] 2018-11-02 2018-11-02 Nurse Visit, IliaRmchp Nurse [facility] 1.2 .840.114 [id number] [facility] 08:58:48 09:18:43 Visit Veronica Walter R THEATER TECHNICIAN 350.1.13.10 ity of REGIONAL 4.2.7.2.686 [place] as MATERNAL [id number] Med ical & CHILD [address] [place] [address] 2018-11-02 2018-11-02 Orders Doctor KARISHMA 1.2.840.114 [id number] Univers 00:00:00 00:00:00 Only Unassigned, ALEJANDRO 350.1.13.10 ity of [place] [facility] 4.2.7.2.686 [place] as [id number] [address] 2018-10-07 2018-10-07 Emergency E [facility] [...] PREG TEST DATE (test code = 3576) [id number] 16:17:00 Test Item Value Reference Range Interpretation Comments POCT PREG (test code = 1605) Negative On board controls acceptable with C Yes Line (test code = 3574) POCT PREG LOT # (test code = 3575) POCT PREG TEST DATE (test code = 3576) [facility] [id number] 15:49:00 Test Item Value Reference Range Interpretation Comments POCT PREG (test code = 1605) Negative On board controls acceptable with C Yes Line (test code = 3574) POCT PREG LOT # (test code = 3575) POCT PREG TEST DATE (test code = 3576) [facility]- XR CHEST 1 [id number] 03:20:[address] [facility] DOB: 2000 Sex: FPatient Name: ROSALES TUCKER Unit No: [id number] EXAMS: CPT: [id number] XR CHEST 1 V 40702 CHEST 1 VIEW CLINICAL HISTORY: Palpitations COMPARISON: [...] NO: N/A Name: ROSALES TUCKER [facility] Phys: Fide Garcia [facility] [address] : 2000 Age: 20 Sex: [place] [address] Loc: N.ERS Exam Date: 04/13/2020 Status: REGER PH: FAX: PAGE 1 Signed Report COMPREHENSIVE METABOLIC [id number] 03:19:00 Test Item Value Reference Range Interpretation [...] 42-121 N PHOSPHATASE (test code = ALKP) [id number] 03:19:00 Test Item Value Reference Range Interpretation Comments TROPONIN-I (test code = TROPI) <0.020 ng/mL 0.000-0.034 N CBC W/AUTO [id number] 02:59:00 Test Item Value Reference Range Interpretation [...] BA#) 0.0 x10 3/uL 0.0-0.1 N POCT [id number] 14:05:00 Test Item Value Reference Range Interpretation Comments POCT PREG (test code = 1605) Negative On board controls acceptable with C Yes Line (test code = 3574) POCT PREG LOT # (test code = 3575) POCT PREG TEST DATE (test code = 3576) [facility] [id number] 14:05:00 Test Item Value Reference Range Interpretation Comments POCT PREG (test code = 1605) Negative On board controls acceptable with C Yes Line (test code = 3574) POCT PREG LOT # (test code = 3575) POCT PREG TEST DATE (test code = 3576) [facility] [id number] 23:29:00 Test Item Value Reference Range Interpretation [...] DERED NEGATIVE UA RFLX MICR CULT IF [id number] 22:28:00 Test Item Value Reference Range Interpretation [...] code = 3257) . Negative - Negative [facility] [id number] 14:30:00 Test Item Value Reference Range Interpretation Comments POCT PREG (test code = 1605) Negative On board controls acceptable with C Yes Line (test code = 3574) POCT PREG LOT # (test code = 3575) POCT PREG TEST DATE (test code = 3576) [facility] UR[facility]AL[facility] W SPECIFIC [id number] 14:13:00 Test Item Value Reference Range Interpretation [...] POCT U APPEAR (test code = 3267) [facility]
[2022-03-02] MEDS ORDERED: CETIRIZINE HCL 5 MG TABLET ONE (11:33)
[2022-03-02] MEDS ORDERED: FAMOTIDINE 20 MG/2 ML VIAL IV ONE (11:33)
[2022-03-02] MEDS ORDERED: predniSONE 20 MG TAB ONE (11:33)
[2022-03-02] MEDS ORDERED: FAMOTIDINE 20 MG TAB ONE (11:34)
[2022-03-02 12:00] LABS: Urine Blood 3+ (Negative); Urine Glucose Trace (Negative); Urine Specific Gravity >=1.030 (1.005-1.030); Urine pH 5.5 (5.0-7.0)
[2022-03-02 12:01] LABS: Urine Protein 1+ (Negative)
--- NOTE | 2022-03-02 12:01 | ER ---
Nurse's Notes [facility] Name: Niurka Alatorre Age: 22 yrs Sex: Female : 2000 Arrival Date: 03/02/2022 Time: 10:25 Bed 11 Private MD: Diagnosis: Psoriasis, unspecified;Dysuria Presentation: 03/02 11:15 Chief complaint: Patient states: Dry itchy skin all over body - on and off for two ld1 months. Pt reports coming to our ER two months ago for this. States, "I received cream for it and it didn't help.". Coronavirus screen: At this time, the client does not indicate any symptoms associated with coronavirus-19. Ebola Screen: No symptoms or risks identified at this time. Initial Sepsis Screen: Does the patient meet any 2 criteria? No. Patient's initial sepsis screen is negative. Does the patient have a suspected source of infection? No. Patient's initial sepsis screen is negative. Risk Assessment: Do you want to hurt yourself or someone else? Patient reports no desire to harm self or others. Onset of symptoms was March 02, 2022. 11:15 Method Of Arrival: Ambulatory ld1 11:15 Acuity: ONEAL 4 ld1 Triage Assessment: 11:17 General: Appears in no apparent distress. comfortable, Behavior is calm, cooperative, ld1 appropriate for age. Pain: Denies pain. EENT: No signs and/or symptoms were reported regarding the EENT system. Neuro: Level of Consciousness is awake, alert, obeys commands, Oriented to person, place, time, situation. Cardiovascular: Capillary refill < 3 seconds Patient's skin is warm and dry. Respiratory: Airway is patent Respiratory effort is even, unlabored. GI: Abdomen is round non-distended. : No signs and/or symptoms were reported regarding the genitourinary system. Derm: Rash noted that is itchy, Reports itching. Musculoskeletal: No signs and/or symptoms reported regarding the musculoskeletal system. 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 - Social history:: Smoking status: Patient denies any tobacco usage or history of. Patient/guardian denies using alcohol. Screenin:18 Abuse screen: Denies threats or abuse. Denies injuries from another. Nutritional ld1 screening: No deficits noted. Tuberculosis screening: No symptoms or risk factors identified. Fall Risk No fall in past 12 months (0 pts). Assessment: 11:18 Reassessment: See triage assessment. ld1 Vital Signs: 11:15 BP 122 / 77; Pulse 72; Resp 18; Temp 97.9(O); Pulse Ox 100% on R/A; Weight 127.01 kg; ld1 Height 5 ft. 9 in. (175.26 cm); Pain 0/10; 11:15 Body Mass Index 41.35 (127.01 kg, 175.26 cm) ld1 ED Course: 10:25 Patient arrived in ED. mr 10:25 Sheila Celis [facility]-C [facility] snw 10:25 Tucker Keith DO is Attending Physician. snw 11:17 Triage completed. ld1 11:17 Arm band placed on right wrist. ld1 11:18 Patient has correct armband on for positive identification. Placed in gown. Bed in low ld1 position. Call light in reach. Side rails up X2. Pulse ox on. NIBP on. Door closed. Noise minimized. Warm blanket given. 11:18 No provider procedures requiring assistance completed. Patient did not have IV access ld1 during this emergency room visit. 11:27 Christen Dunn, RN is Primary Nurse. ld1 Administered Medications: 12:00 Drug: predniSONE 40 mg Route: PO; ld1 12:00 Drug: Pepcid (famotidine) 20 mg Route: PO; ld1 12:00 Drug: ZyrTEC - Cetirizine 10 mg Route: PO; ld1 Medication: 11:18 VIS not applicable for this client. ld1 Outcome: 12:01 Discharge ordered by . snw 12:32 Discharged to home ambulatory, with family. ld1 12:32 Condition: stable 12:32 Discharge instructions given to patient, family, Instructed on discharge instructions, follow up and referral plans. medication usage, Demonstrated understanding of instructions, follow-up care, medications, Prescriptions given X 4. 12:32 Patient left the ED. ld1 Signatures: Sheila Celis, MARINO SHIPPING RECEIVING CLERK-Aaronw Cinda Velásquez Lauren, RN RN ld1
--- NOTE | 2022-03-02 12:01 | EDPHYS ---
Physician Documentation [facility] Name: Niurka Alatorre Age: 22 yrs Sex: Female : 2000 Arrival Date: 03/02/2022 Time: 10:25 Bed 11 Private MD: ED Physician Tucker Keith HPI: 03/02 11:27 This 22 yrs old Black Female presents to ER via Ambulatory with complaints of Skin snw Problem. 11:27 The patient's rash thought to be caused by allergies, Dermatitis an unknown cause. The snw rash is located on the body diffusely. The rash can be described as diffuse. Onset: The symptoms/episode began/occurred acutely. Associated signs and symptoms: Pertinent positives: itching. Severity of symptoms: At their worst the symptoms were moderate. The patient has experienced similar episodes in the past. It is unknown whether or not the patient has recently seen a physician. 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 - Social history:: Smoking status: Patient denies any tobacco usage or history of. Patient/guardian denies using alcohol. ROS: 11:26 Constitutional: Negative for fever, chills, and weight loss, Eyes: Negative for injury, snw pain, redness, and discharge, ENT: Negative for injury, pain, and discharge, Neck: Negative for injury, pain, and swelling, Cardiovascular: Negative for chest pain, palpitations, and edema, Respiratory: Negative for shortness of breath, cough, wheezing, and pleuritic chest pain, Abdomen/GI: Negative for abdominal pain, nausea, vomiting, diarrhea, and constipation, Back: Negative for injury and pain, : Negative for injury, bleeding, discharge, and swelling, MS/Extremity: Negative for injury and deformity, Neuro: Negative for headache, weakness, numbness, tingling, and seizure, Psych: Negative for depression, anxiety, suicide ideation, homicidal ideation, and hallucinations. 11:26 Skin: Positive for rash, diffusely, +pruritis. Exam: 11:25 Constitutional: This is a well developed, well nourished patient who is awake, alert, snw and in no acute distress. Head/Face: Normocephalic, atraumatic. Eyes: Pupils equal round and reactive to light, extra-ocular motions intact. Lids and lashes normal. Conjunctiva and sclera are non-icteric and not injected. Cornea within normal limits. Periorbital areas with no swelling, redness, or edema. ENT: Nares patent. No nasal discharge, no septal abnormalities noted. Tympanic membranes are normal and external auditory canals are clear. Oropharynx with no redness, swelling, or masses, exudates, or evidence of obstruction, uvula midline. Mucous membranes moist. Neck: Trachea midline, no thyromegaly or masses palpated, and no cervical lymphadenopathy. Supple, full range of motion without nuchal rigidity, or vertebral point tenderness. No Meningismus. Chest/axilla: Normal chest wall appearance and motion. Nontender with no deformity. No lesions are appreciated. Cardiovascular: Regular rate and rhythm with a normal S1 and S2. No gallops, murmurs, or rubs. Normal PMI, no JVD. No pulse deficits. Respiratory: Lungs have equal breath sounds bilaterally, clear to auscultation and percussion. No rales, rhonchi or wheezes noted. No increased work of breathing, no retractions or nasal flaring. Abdomen/GI: Soft, non-tender, with normal bowel sounds. No distension or tympany. No guarding or rebound. No evidence of tenderness throughout. Back: No spinal tenderness. No costovertebral tenderness. Full range of motion. MS/ Extremity: Pulses equal, no cyanosis. Neurovascular intact. Full, normal range of motion. Neuro: Awake and alert, GCS 15, oriented to person, place, time, and situation. Cranial nerves II-XII grossly intact. Motor strength 5/5 in all extremities. Sensory grossly intact. Cerebellar exam normal. Normal gait. Psych: Awake, alert, with orientation to person, place and time. Behavior, mood, and affect are within normal limits. 11:25 Skin: Appearance: normal except for affected area, contact dermatitis, psoriasis. 11:28 Special observations: pt looks to have chronic skin condition. snw Vital Signs: 11:15 BP 122 / 77; Pulse 72; Resp 18; Temp 97.9(O); Pulse Ox 100% on R/A; Weight 127.01 kg; ld1 Height 5 ft. 9 in. (175.26 cm); Pain 0/10; 11:15 Body Mass Index 41.35 (127.01 kg, 175.26 cm) ld1 MDM: 10:53 Patient medically screened. snw 12:22 Data reviewed: vital signs, nurses notes. Data interpreted: Pulse oximetry: on room air snw is 100 %. Interpretation: normal. Counseling: I had a detailed discussion with the patient and/or guardian regarding: the historical points, exam findings, and any diagnostic results supporting the discharge/admit diagnosis, lab results, the need for outpatient follow up, to return to the emergency department if symptoms worsen or persist or if there are any questions or concerns that arise at home. Special discussion: Based on the history and exam findings, there is no indication for further emergent testing or inpatient evaluation. 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 I discussed with the patient/guardian the need to see the primary care provider for further evaluation of the symptoms. 03/02 12:01 Order name: Urine Dipstick-Ancillary; Complete Time: 12:02 EDMS 03/02 12:02 Order name: Urine Culture snw 03/02 11:24 Order name: Urine Test (obtain specimen); Complete Time: 12:00 snw Administered Medications: 12:00 Drug: predniSONE 40 mg Route: PO; ld1 12:00 Drug: Pepcid (famotidine) 20 mg Route: PO; ld1 12:00 Drug: ZyrTEC - Cetirizine 10 mg Route: PO; ld1 Disposition: 15:42 Co-signature as Attending Physician, Tucker WILSON was immediately available onsite ms3 in the emergency department for consultation in the care of the patient. Disposition Summary: 03/02/22 12:01 Discharge Ordered Location: Home snw Condition: Stable snw Diagnosis - Psoriasis, unspecified snw - Dysuria snw Followup: snw - With: Emergency Department - When: As needed - Reason: Worsening of condition Discharge Instructions: - Discharge Summary Sheet snw - Dysuria snw - Psoriasis snw Forms: - Medication Reconciliation Form snw - Thank You Letter snw - Antibiotic Education snw - Prescription Opioid Use snw Prescriptions: - Zyrtec 10 mg Oral Tablet - take 1 tablet by ORAL route once daily As needed; 20 tablet; Refills: 0, snw Product Selection Permitted - Doxycycline Hyclate 100 mg Oral Tablet - take 1 tablet by ORAL route every 12 hours; 20 tablet; Refills: 0, Product snw Selection Permitted - Prednisone 20 mg Oral Tablet - take 2 tablets by ORAL route once daily for 5 days; 10 tablet; Refills: 0, snw Product Selection Permitted - Pepcid 20 mg Oral Tablet - take 1 tablet by ORAL route once daily; 20 tablet; Refills: 0, Product snw Selection Permitted Signatures: Dispatcher [employer] EDSheila Barahona FNP-C FNP-Aaronw Tucker Keith DO DO ms3 Christen Dunn, RN RN ld1
[2022-03-02 12:37] VITALS: BP 122/77; TEMP 97.9; O2SAT 100
== END 2022-03-02 12:32 | disposition home or self-care (01) ==
LOC: ER 10:22
DX: L40.9 Psoriasis, unspecified (principal); R30.0 Dysuria
CPT/HCPCS: 87088; 87086; 81003; J7512; 99283